=== PATIENT | female | born 1945 | race Caucasian/White ===

== ENCOUNTER 2016-12-11 22:58 | Emergency (ER) | payer MEDICARE ==
[2016-12-11] MEDS ORDERED: MORPHINE SULFATE 4 MG/ML SYRINGE IVP STA ×2 (23:20→23:37)
--- NOTE | 2016-12-11 23:41 | ED ---
Lower Extremity Injury HPI - General Chief Complaint: Extremity Injury, Lower Stated Complaint: R Ankle Injury Source: family, EMS Mode of arrival: EMS Limitations: no limitations - History of Present Illness Initial Comments: 70-year-old female presented for evaluation of right ankle injury. She states that she was walking on the stairs and missed the last step. She states her foot turned inward and she heard a snap and had excruciating pain and she still able to move toes and denies any discoloration to the foot. She can still feel sensation to the foot as well. Unable to ambulate on the leg she states that there is a deformity to the lateral surface. She denies any other injuries and denies loss of consciousness. - Related Data Home Medications Medication Instructions Recorded Confirmed Losartan-Hctz 50-12.5 mg [Hyzaar 1 tab PO DAILY 01/26/14 01/14/16 50-12.5] Pantoprazole Sodium [Protonix] 40 mg PO DAILY 01/26/14 01/14/16 Krill Oil 500 mcg PO DAILY 01/14/16 01/14/16 Multivitamin [Multiple Vitamins] 1 tab PO DAILY 01/14/16 01/14/16 Oxybutynin Chloride [Ditropan XL] 5 mg PO DAILY 01/14/16 01/14/16 Timolol 0.5% Ophth Soln [Timoptic 1 drop BOTH EYES DAILY 01/14/16 01/14/16 0.5% Ophth Soln] Vitamin D3(Unknown Dose) 1 tab PO DAILY 01/14/16 01/14/16 cycloSPORINE 0.05% OPHTH SOLN 1 drop BOTH EYES BID 01/14/16 01/14/16 [Restasis] Previous Rx's Medication Instructions Recorded EPINEPHrine [Epipen 2-Jamal] 0.3 mg IJ ONCE #1 auto.injct 01/14/16 oxyCODONE-APAP 7.5-325MG [Percocet 1 tab PO Q6HR #30 tab 12/12/16 7.5-325 mg] Allergies Allergy/AdvReac Type Severity Reaction Status Date / Time bacitracin Allergy Unknown Verified 01/14/16 12:26 [From Neosporin Plus] bacitracin zinc Allergy Unknown Verified 01/14/16 12:26 [From Neosporin Plus] lidocaine Allergy Unknown Verified 01/14/16 12:26 [From Neosporin Plus] neomycin sulfate Allergy Unknown Verified 01/14/16 12:26 [From Neosporin Plus] polymyxin B Allergy Unknown Verified 01/14/16 12:26 [From Neosporin Plus] polymyxin B sulfate Allergy Unknown Verified 01/14/16 12:26 [From Neosporin Plus] pramoxine Allergy Unknown Verified 01/14/16 12:26 [From Neosporin Plus] pramoxine HCl Allergy Unknown Verified 01/14/16 12:26 [From Neosporin Plus] venom-honey bee Allergy Unknown Verified 01/14/16 12:26 [bee venom (honey bee)] Review of Systems ROS Statement: Those systems with pertinent positive or pertinent negative responses have been documented in the HPI. ROS Other: All systems not noted in ROS Statement are negative. Constitutional: Denies: fever, chills Eyes: Denies: eye pain, eye discharge ENT: Denies: ear pain, throat pain Respiratory: Denies: cough, dyspnea Cardiovascular: Denies: chest pain, palpitations Endocrine: Denies: fatigue, polydipsia Gastrointestinal: Denies: abdominal pain, nausea, vomiting Genitourinary: Denies: urgency, dysuria Musculoskeletal: Reports: other (Right ankle pain with deformity.). Denies: back pain Skin: Denies: rash, lesions Neurological: Denies: headache, weakness Psychiatric: Denies: anxiety, depression Hematological/Lymphatic: Denies: easy bleeding, easy bruising Past Medical History Past Medical History: GERD/Reflux, Hypertension History of Any Multi-Drug Resistant Organisms: None Reported Past Surgical History: No Surgical Hx Reported Past Psychological History: No Psychological Hx Reported Smoking Status: Never smoker Past Alcohol Use History: None Reported Past Drug Use History: None Reported General Exam Limitations: no limitations General appearance: alert, in no apparent distress Head exam: Present: atraumatic, normocephalic, normal inspection Eye exam: Present: normal appearance, PERRL, EOMI. Absent: scleral icterus, conjunctival injection, periorbital swelling ENT exam: Present: normal exam, mucous membranes moist Neck exam: Present: normal inspection. Absent: tenderness, meningismus, lymphadenopathy Respiratory exam: Present: normal lung sounds bilaterally. Absent: respiratory distress, wheezes, rales, rhonchi, stridor Cardiovascular Exam: Present: regular rate, normal rhythm, normal heart sounds. Absent: systolic murmur, diastolic murmur, rubs, gallop, clicks GI/Abdominal exam: Present: soft, normal bowel sounds. Absent: distended, tenderness, guarding, rebound, rigid Rectal exam: Present: deferred Extremities exam: Present: tenderness, normal capillary refill, other ( Deformity to the right ankle with discoloration to the medial surface. Pulses, sensation, and motor function intact.) Back exam: Present: normal inspection Neurological exam: Present: alert, oriented X3, CN II-XII intact Psychiatric exam: Present: normal affect, normal mood Skin exam: Present: warm, dry, intact. Absent: rash Course Vital Signs 12/11/16 12/12/16 12/12/16 23:01 00:53 01:01 Temperature 98.1 F Pulse Rate 61 79 79 Respiratory 16 16 14 Rate Blood Pressure 196/96 171/94 176/93 O2 Sat by Pulse 95 97 97 Oximetry 12/12/16 12/12/16 12/12/16 01:05 01:10 01:15 Temperature Pulse Rate 75 96 74 Respiratory 14 10 L 16 Rate Blood Pressure 183/99 152/91 145/74 O2 Sat by Pulse 88 L 92 L 98 Oximetry 12/12/16 12/12/16 01:20 01:55 Temperature Pulse Rate 75 73 Respiratory 16 18 Rate Blood Pressure 144/78 136/75 O2 Sat by Pulse 93 L 97 Oximetry Procedures - Orthopedic Fracture Reduction Fracture #1 Consent Obtained: verbal consent Time Out Performed: Yes Side: right Fracture Reduction Location: tibia, fibula Analgesia: procedural sedation Technique: direct manipulation Post Reduction X-rays Demonstrate: anatomical reduction Post-Reduction Neuro Exam: intact Post-Reduction Vascular Exam: intact Splint Applied: Yes Patient Tolerated Procedure: well Additional Comments: Discussed with Dr. Lopes who requested a bulky mosquera splint and out patient follow up - Procedural Sedation Indications: fracture/dislocation reduction ASA Class: II Preparation: nurse sane applied, pulse oximeter, capnometry used, supplemental O2 applied, reversal agents at bedside, suction/airway equipment at bedside, IV secured Fentanyl: IV Fentanyl Dose: 16 (160 mcgs) Midazolam: IV Midazolam Dose: 6 Complications: Respiratory Depression-Repositioning Required Interventions: airway repositioned Patient Tolerated Procedure: well Medical Decision Making - Medical Decision Making 70-year-old female presenting for evaluation of injury to right ankle. She states she was walking down stairs and missed the last step causing ankle to invert. Patient states she heard a snap followed by excruciating pain and deformity to the ankle. On physical examination the deformity is noted however there is no skin tenting or breaks in the skin. Pulse sensation and motor function are intact distal to the injury. There are no other injuries noted. There is no fibular head tenderness to palpation as well. We'll obtain x-rays of the ankle and fibula and provide pain control. Procedural sedation with fentanyl and Versed given and right ankle was reduced and placed in posterior mold splint. Postreduction x-rays showed reduction of the trimalleolar fracture. This was discussed with Dr. Lopes who stated that the reduction looked appropriate and requested that she be placed in a bulky Mosquera splint and discharged with pain control and instructions to call his office this week for follow-up. No surgeries indicated at this time and would likely not be scheduled for a couple weeks. Results were discussed with the patient's as well as the discussion with the orthopedic surgeon. He stated that they had crutches at home and that he could drive her home and then get the crutches and help her inside. They were informed that she would be nonweightbearing on the right leg and that she should limit her movements. They were further advised to follow-up with orthopedic surgeon this week. Although postreduction the patient's foot was neurovascularly intact distal to the fracture they were advised that they should loosen the bandages if her foot should start to become numb or weak. They acknowledged an understanding of all this information and agreed with this plan of care. Disposition Clinical Impression: Trimalleolar fracture of ankle, closed Disposition: HOME SELF-CARE Condition: Stable Instructions: Ankle Fracture (ED) Additional Instructions: Please use medication as discussed. Please follow up with family doctor if symptoms have not improved over the next two days. Please return to the emergency room if your symptoms increase or worsen or for any other concerns. Prescriptions: oxyCODONE-APAP 7.5-325MG [Percocet 7.5-325 mg] 1 tab PO Q6HR #30 tab Referrals: Roz Velazquez MD [Primary Care Provider] - 1-2 days Time of Disposition: 02:19
--- NOTE | 2016-12-12 00:05 | XR ---
EXAM: XR Right Ankle Complete, 3 or More Views CLINICAL HISTORY: Reason: Pain TECHNIQUE: Frontal, lateral and oblique views of the right ankle. COMPARISON: No relevant prior studies available. FINDINGS: There is a trimalleolar right ankle fracture. Posterior and lateral talar subluxation relative to the tibial plafond. No clear talar dome fracture. Arthrodesis screws traversing multiple tarsometatarsal and intertarsal joints. Generalized osteopenia. IMPRESSION: Trimalleolar right ankle fracture
[2016-12-12] MEDS ORDERED: MIDAZOLAM (PF) 1 MG/ML 5 ML VIAL IV STA (00:37)
[2016-12-12] MEDS ORDERED: fentaNYL (PF) 50 MCG/ML 2 ML AMP IVP STA (00:37)
[2016-12-12 01:56] VITALS: RESP 18
[2016-12-12 02:31] VITALS: BP 146/84; PULSE 61; TEMP 97.7
--- NOTE | 2016-12-12 02:31 | XR ---
EXAM: XR Right Ankle Complete, 3 or More Views CLINICAL HISTORY: Reason: post reduction TECHNIQUE: Frontal, lateral and oblique views of the right ankle. COMPARISON: 12/11/16 at 2340 FINDINGS/IMPRESSION: Interval closed reduction of trimalleolar fracture of the right ankle. Markedly improved alignment. Stable midfoot arthrodesis.
--- NOTE | 2016-12-16 01:28 | CDI ---
Documentation Clarification OP Dear Tyrese ENGLISH DO, Please add addendum for Moderate conscious sedation stop time. Fentanyl and versed administration time only mentioned. Thank you, cristal dozier. Tabber. If you have any questions please contact Coding Manger [phone]. [facility]
== END 2016-12-12 03:30 | disposition home or self-care (01) ==
LOC: EC 22:58
DX: S82.851A Displaced trimalleolar fracture of right lower leg, initial encounter for closed fracture (principal); K21.9 Gastro-esophageal reflux disease without esophagitis; I10 Essential (primary) hypertension; Z88.1 Allergy status to other antibiotic agents; Z91.030 Bee allergy status; Z79.899 Other long term (current) drug therapy; X50.9XXA Other and unspecified overexertion or strenuous movements or postures, initial encounter; Y93.01 Activity, walking, marching and hiking
CPT/HCPCS: 99284; 99152; 27818; 96374; 73600; 73610; J2270; J2250; J3010

== ENCOUNTER 2016-12-16 17:24 | Inpatient (IN) | payer MEDICARE ==
--- NOTE | 2016-12-16 18:13 | ED ---
General Adult HPI - General Chief complaint: Extremity Injury, Lower Stated complaint: Ankle dislocation Time Seen by Provider: 12/16/16 17:45 Source: patient, RN notes reviewed Mode of arrival: wheelchair Limitations: physical limitation - History of Present Illness Initial comments: Patient is a pleasant 70-year-old female presenting to the emergency department with concern for ankle dislocation. Patient was in the hospital less than a week ago with fracture dislocation of the right ankle. This was reduced in the emergency department. Patient did follow-up with orthopedics and had splint replaced. Patient did have the scan done today showing posterior dislocation. Patient states she did have a fall following her orthopedic visit. Patient questions if it may have been dislocated at that time. No other areas of injury or concern. - Related Data Home Medications Medication Instructions Recorded Confirmed Losartan-Hctz 50-12.5 mg [Hyzaar 1 tab PO DAILY 01/26/14 12/16/16 50-12.5] Pantoprazole Sodium [Protonix] 40 mg PO DAILY 01/26/14 12/16/16 Oxybutynin Chloride [Ditropan XL] 5 mg PO DAILY 01/14/16 12/16/16 Timolol 0.5% Ophth Soln [Timoptic 1 drop BOTH EYES DAILY 01/14/16 12/16/16 0.5% Ophth Soln] cycloSPORINE 0.05% OPHTH SOLN 1 drop BOTH EYES BID 01/14/16 12/16/16 [Restasis] Biotin 5 mg PO DAILY 12/16/16 12/16/16 EPINEPHrine [Epipen 2-Jamal] 0.3 mg IM ONCE PRN 12/16/16 12/16/16 Fish Oil/Vitamin D3 1 tab PO DAILY 12/16/16 12/16/16 traMADol HCL [Ultram] 50 - 100 mg PO Q4-6H PRN 12/16/16 12/16/16 Allergies Allergy/AdvReac Type Severity Reaction Status Date / Time bacitracin Allergy Unknown Verified 12/16/16 17:52 [From Neosporin Plus] bacitracin zinc Allergy Unknown Verified 12/16/16 17:52 [From Neosporin Plus] famotidine [From Pepcid] Allergy Unknown Verified 12/16/16 17:52 lidocaine Allergy Unknown Verified 12/16/16 17:52 [From Neosporin Plus] neomycin sulfate Allergy Unknown Verified 12/16/16 17:52 [From Neosporin Plus] polymyxin B Allergy Unknown Verified 12/16/16 17:52 [From Neosporin Plus] polymyxin B sulfate Allergy Unknown Verified 12/16/16 17:52 [From Neosporin Plus] pramoxine Allergy Unknown Verified 12/16/16 17:52 [From Neosporin Plus] pramoxine HCl Allergy Unknown Verified 12/16/16 17:52 [From Neosporin Plus] venom-honey bee Allergy Unknown Verified 12/16/16 17:52 [bee venom (honey bee)] Review of Systems ROS Statement: Those systems with pertinent positive or pertinent negative responses have been documented in the HPI. ROS Other: All systems not noted in ROS Statement are negative. Constitutional: Denies: fever Eyes: Denies: eye pain ENT: Denies: ear pain Respiratory: Denies: cough Cardiovascular: Denies: chest pain Endocrine: Denies: fatigue Gastrointestinal: Denies: abdominal pain Genitourinary: Denies: dysuria Musculoskeletal: Denies: back pain Skin: Denies: rash Neurological: Denies: headache Past Medical History Past Medical History: GERD/Reflux, Hypertension History of Any Multi-Drug Resistant Organisms: None Reported Past Surgical History: No Surgical Hx Reported Past Psychological History: No Psychological Hx Reported Smoking Status: Never smoker Past Alcohol Use History: None Reported Past Drug Use History: None Reported General Exam Limitations: physical limitation General appearance: alert, in no apparent distress Head exam: Present: atraumatic Eye exam: Present: normal appearance Neck exam: Present: normal inspection. Absent: tenderness Respiratory exam: Present: normal lung sounds bilaterally Cardiovascular Exam: Present: regular rate, normal rhythm GI/Abdominal exam: Present: soft. Absent: tenderness Extremities exam: Present: other (Right leg in splint) Neurological exam: Present: alert Psychiatric exam: Present: normal affect, normal mood Skin exam: Present: normal color Course Vital Signs 12/16/16 12/16/16 12/16/16 17:26 19:02 19:07 Temperature 97.8 F Pulse Rate 75 71 75 Respiratory 20 16 16 Rate Blood Pressure 164/90 188/104 195/100 O2 Sat by Pulse 95 96 92 L Oximetry 12/16/16 12/16/16 12/16/16 19:12 19:17 19:22 Temperature Pulse Rate 72 66 67 Respiratory 16 18 18 Rate Blood Pressure 182/105 188/103 186/101 O2 Sat by Pulse 100 100 94 L Oximetry 12/16/16 12/16/16 12/16/16 19:27 19:39 19:52 Temperature 99.1 F Pulse Rate 68 65 71 Respiratory 18 16 16 Rate Blood Pressure 179/103 175/93 182/103 O2 Sat by Pulse 95 95 95 Oximetry 12/16/16 12/16/16 20:05 20:36 Temperature Pulse Rate 67 65 Respiratory 18 17 Rate Blood Pressure 172/97 170/96 O2 Sat by Pulse 98 96 Oximetry Procedures - Orthopedic Joint Reduction Joint #1 Consent Obtained: verbal consent, emergent situation Time Out Performed: Yes Side: right Joint Reduction Location: ankle Analgesia: procedural sedation Technique Used: traction/counter-traction Post-Reduction Neuro Exam: intact Post-Reduction Vascular Exam: intact Post Reduction X-Ray Obtained: Yes Post Reduction X-Ray Results: not reduced Splint Applied: Yes Patient Tolerated Procedure: well, no complications Additional Comments: Right ankle was easily moved in and out of joint. Patient did have some mild shaking towards in the sedation and the joint was in motion during this time. I did feel like reduction was successful prior to placing an OCL however x-rays show persistent dislocation. - Orthopedic Splinting/Casting Injury #1 Side: right Lower Extremity Injury Location: ankle Lower Extremity Immobilizer: posterior splint, stirrup splint Additional Comments: Examined post-placement, neurovascular intact and good alignment. - Procedural Sedation Procedural Sedation Start Time: 19:02 Procedural Sedation Stop Time: 19:22 Indications: fracture/dislocation reduction Preparation: athletic monitor applied, pulse oximeter, capnometry used IV Etomidate Dose (mgs): 10 Complications: none Patient Tolerated Procedure: well, no complications Medical Decision Making - Medical Decision Making Case was discussed with Dr. Carrizales. He does have concern for an unstable fracture. Patient reevaluated and still has discomfort. Distally the foot is neurovascularly intact. Patient does prefer to stay in the hospital. - Radiology Data Radiology results: image reviewed (X-ray of the right ankle shows persistent dislocation.) Disposition Clinical Impression: Trimalleolar fracture of ankle, closed Disposition: ADMITTED IP TO THIS [facility] Referrals: Roz Velazquez MD [Primary Care Provider] - 1-2 days
[2016-12-16] MEDS ORDERED: ETOMIDATE 2 MG/ML 10 ML VIAL IVP STA (18:46)
--- NOTE | 2016-12-16 19:38 | XR ---
EXAMINATION TYPE: XR ankle complete RT DATE OF EXAM: 12/16/2016 COMPARISON: 12/12/2016 HISTORY: Post reduction TECHNIQUE: 3 views FINDINGS: There is a trimalleolar fracture of the ankle. There is posterior dislocation of the talus. There is significant posterior displacement of the posterior tibial chip fracture and the medial mal leolus. IMPRESSION: There is posterior trimalleolus fracture dislocation of the ankle. The posterior dislocat ion is new compared to the recent exam.
[2016-12-16] MEDS ORDERED: HYDROmorphone 1 MG/ML 1 ML SYRINGE IVP STA (19:54)
[2016-12-16] MEDS ORDERED: NALOXONE 0.4 MG/ML 1 ML VIAL IV PRN (21:01)
[2016-12-16] MEDS ORDERED: ONDANSETRON 4 MG/2 ML VIAL IVP PRN (21:01)
[2016-12-16] MEDS ORDERED: SODIUM CHLORIDE 0.9% 1,000 ML IV SCH (21:15)
[2016-12-16 21:22] LABS: Basophils % (A) 0 %; CH 30.7; CHCM 35.1; Eosinophils # (A) 0.1 k/uL (0-0.7); Eosinophils % (A) 1 %; HCT 34.2 % (34.0-46.0); HDW 2.58; HGB 12.5 gm/dL (11.4-16.0); Luc # (Auto) 0.15; Luc % (Auto) 2; Lymphocytes % (A) 11 %; MCH 31.9 pg (25.0-35.0); MCHC 36.4 g/dL (31.0-37.0); MCV 87.6 fL (80.0-100.0); Mean Platelet Volume 6.4; Monocytes # (A) 0.5 k/uL (0-1.0); Monocytes % (A) 5 %; Neutrophils # (A) 7.8 k/uL (1.3-7.7); Neutrophils % (A) 81 %; RBC 3.91 m/uL (3.80-5.40); RDW 13.2 % (11.5-15.5); WBC 9.5 k/uL (3.8-10.6); WBC (Perox) 10.07
[2016-12-16 21:29] LABS: INR 1.1 (<1.1); Prothrombin Time 10.8 sec (9.0-12.0)
[2016-12-16 21:31] LABS: Anion Gap 9 mmol/L; Blood Urea Nitrogen 19 mg/dL (7-17); Calcium 8.4 mg/dL (8.4-10.2); Carbon Dioxide 25 mmol/L (22-30); Chloride 100 mmol/L (98-107); Glucose 103 mg/dL (74-99); Non-African American GFR(MDRD) >60 (>60 ml/min/1.73 sqM); Sodium 134 mmol/L (137-145)
[2016-12-16 22:02] VITALS: BMI 30.9
[2016-12-16] MEDS ORDERED: Potassium Replacement Protocol 1 EACH MISC MISCELLANE PRN (22:06)
[2016-12-17] MEDS: cycloSPORINE 0.05% OPHTH 0.4 ML DROPERETTE BOTH EYES SCH ×2 (00:14→08:31)
[2016-12-17] MEDS: POTASSIUM CHLORIDE 10 MEQ, LIDOCAINE 2% INJ 10 MG in SODIUM CHLORIDE 0.9% 100 ML IVPB SCH ×6 (00:14→11:56)
[2016-12-17] MEDS: TIMOLOL 0.5% OPHTH DROPS 5 ML BTL BOTH EYES SCH ×2 (00:14→08:36)
[2016-12-17] MEDS: HYDROmorphone 1 MG/ML 1 ML SYRINGE IV PRN ×2 (03:51→09:00)
[2016-12-17 07:17] VITALS: BP 147/87; PULSE 61; RESP 18; TEMP 97.2
[2016-12-17] MEDS ORDERED: PANTOPRAZOLE 40 MG/10 ML VIAL IV SCH (09:00)
[2016-12-17] MEDS ORDERED: OXYBUTYNIN XL 5 MG TAB.ER.24 PO SCH (09:00)
[2016-12-17] MEDS ORDERED: LOSARTAN-HCTZ 50-12.5 MG 1 EACH TAB PO SCH (09:00)
[2016-12-17] MEDS ORDERED: DIAZEPAM 5 MG/ML 2 ML SYRINGE IVP STA (09:01)
[2016-12-17] MEDS ORDERED: LORazepam 2 MG/ML SYRINGE IV STA (09:30)
[2016-12-17] MEDS ORDERED: LIDOCAINE 2% INJ 20 MG/ML (20 ML MDV) SQ STA (09:31)
[2016-12-17] MEDS ORDERED: LIDOCAINE 1% INJ 10MG/ML (20 ML MDV) ONE (09:41)
--- NOTE | 2016-12-17 09:57 | XR ---
EXAMINATION TYPE: XR ankle limited RT DATE OF EXAM: 12/17/2016 COMPARISON: NONE HISTORY: Fracture, reduction TECHNIQUE: 2 view right ankle FINDINGS: There is anterior dislocation of the tibia and relation to the talus. Fracture fragments ar e adjacent to the talus. IMPRESSION: 1. Fracture dislocation at the ankle with anterior dislocation of the tibia. 2. Exam is limited to lateral views.
--- NOTE | 2016-12-17 10:33 | P.HPOR ---
History of Present Illness H&P Date: 12/17/16 Chief Complaint: Fracture dislocation right ankle This is a 70-year-old female who presents emergency department yesterday with a recurrent dislocation of her trimalleolar fracture dislocation. She has had reductions by Dr. Lopes and in the emergency department. Follow-up computed tomography scan of her right ankle on 12/16/2016 revealed displacement and dislocation of the ankle. She was advised to come in the emergency department for re-reduction. The reduction the emergency department was unsuccessful. She is admitted for orthopedic evaluation. Past Medical History Past Medical History: GERD/Reflux, Hypertension History of Any Multi-Drug Resistant Organisms: None Reported Past Surgical History: Orthopedic Surgery Past Anesthesia/Blood Transfusion Reactions: No Reported Reaction Past Psychological History: No Psychological Hx Reported Smoking Status: Never smoker Past Alcohol Use History: None Reported Past Drug Use History: None Reported Medications and Allergies Home Medications Medication Instructions Recorded Confirmed Type Losartan-Hctz 50-12.5 mg [Hyzaar 1 tab PO DAILY 01/26/14 12/16/16 History 50-12.5] Pantoprazole Sodium [Protonix] 40 mg PO DAILY 01/26/14 12/16/16 History Oxybutynin Chloride [Ditropan XL] 5 mg PO DAILY 01/14/16 12/16/16 History Timolol 0.5% Ophth Soln [Timoptic 1 drop BOTH EYES DAILY 01/14/16 12/16/16 History 0.5% Ophth Soln] cycloSPORINE 0.05% OPHTH SOLN 1 drop BOTH EYES BID 01/14/16 12/16/16 History [Restasis] Biotin 5 mg PO DAILY 12/16/16 12/16/16 History EPINEPHrine [Epipen 2-Jamal] 0.3 mg IM ONCE PRN 12/16/16 12/16/16 History Fish Oil/Vitamin D3 1 tab PO DAILY 12/16/16 12/16/16 History traMADol HCL [Ultram] 50 - 100 mg PO Q4-6H PRN 12/16/16 12/16/16 History Allergies Allergy/AdvReac Type Severity Reaction Status Date / Time bacitracin Allergy Mild Rash/Hives Verified 12/16/16 23:05 [From Neosporin ([id number])] neomycin Allergy Mild Rash/Hives Verified 12/16/16 23:05 [From Neosporin ([id number])] polymyxin B Allergy Mild Rash/Hives Verified 12/16/16 23:05 [From Neosporin ([id number])] famotidine [From Pepcid] Allergy Unknown Verified 12/16/16 17:52 venom-honey bee Allergy Unknown Verified 12/16/16 17:52 [bee venom (honey bee)] Physical Examination There is obvious deformity noted to the right ankle. There is ecchymosis. No open wounds noted. She has full toe motion without difficulty or pain. Neurovascular status to the right lower extremity is intact. Results Xrays reveal trimalleolar fracture dislocation right ankle. - Labs Labs: Abnormal Lab Results - Last 24 Hours (Table) 12/16/16 12/16/16 12/17/16 Range/Units 21:07 21:07 02:57 Neutrophils # 7.8 H (1.3-7.7) k/uL Sodium 134 L (137-145) mmol/L Potassium 3.0 L* 3.4 L (3.5-5.1) mmol/L BUN 19 H (7-17) mg/dL Glucose 103 H (74-99) mg/dL H & H 12/16/16 Range/Units 21:07 Hgb 12.5 (11.4-16.0) gm/dL Hct 34.2 (34.0-46.0) % Coagulation 12/16/16 Range/Units 21:07 INR 1.1 (<1.1) Result Diagrams: 12/16/16 21:07 12/17/16 07:48 Assessment and Plan (1) Trimalleolar fracture of ankle, closed Status: Acute Plan: The clinical and x-ray Findings are discussed the patient. The patient is admitted for close reduction in pain management. Please see procedure note by Dr. Carrizales.
--- NOTE | 2016-12-17 10:34 | P.OP ---
Date of Procedure: 12/17/16 Preoperative Diagnosis: Postoperative Diagnosis: Procedure(s) Performed: PREOPERATIVE DIAGNOSES: 1. Right ankle trimalleolar fracture with current dislocated ankle POSTOPERATIVE DIAGNOSES: 1. Right ankle trimalleolar fracture with current dislocated ankle PROCEDURES PERFORMED: 1. Closed reduction of right ankle fracture dislocation 2. Splint application ANESTHESIA: Hematoma block using 1% lidocaine WHITE LEAD GRINDER: Monika Tavarez PA-C (assistance with reduction and splint) COMPLICATIONS: None ESTIMATED BLOOD LOSS: None mL. INDICATIONS: Mrs. Adame is a 70-year-old female who presented to the emergency department yesterday with a dislocation of her trimalleolar ankle fracture. Reduction attempts in the emergency room were unsuccessful and therefore she is in need of reduction this morning. I have explained the risks and potential, locations of reduction of this ankle fracture to her in detail, as being inclusive of, but not limited to: Need for urgent intervention surgically, skin compromise, compartment syndrome, splint issues including ulcers, and redislocation at a later date. She wishes to proceed. PROCEDURE: This procedure was done at bedside. The anterior ankle was cleansed with ChloraPrep. Hematoma block was administered, after aspiration of approximately 7 mL of blood from the ankle joint. 10 mL of lidocaine were then injected into the joint. The joint was then reduced using gentle manipulation. The ankle was very unstable. Well-padded well molded splint was applied using abundant padding around the ankle as well as posterior splint and stirrup. Portable x-ray was taken in both AP and lateral views in the splint which showed acceptable and satisfactory reduction of the joint. She tolerated the procedure well. Implants: Indications for Procedure: Operative Findings: Description of Procedure:
--- NOTE | 2016-12-17 10:35 | P.DS ---
Providers Date of admission: 12/16/16 21:02 Expected date of discharge: 12/17/16 Attending physician: Jean Carrizales Consults: 12/16/16 22:05 Consult Physician Routine Consulting Provider: Grace Alicia Consult Reason/Comments: medical management Do you want consulting provider notified?: Yes, Notify in am Primary care physician: Roz Velazquez - Discharge Diagnosis(es) (1) Trimalleolar fracture of ankle, closed Current Visit: Yes Status: Acute Hospital Course: This is a 70-year-old female admitted with recurrent dislocation of her trimalleolar fracture. The attempt in the emergency department reduction was unsuccessful. The patient is admitted for further orthopedic evaluation. Closed reduction was performed a bedside on 12/17/[address] Carrizales. Please see procedure note. The patient is cleared for discharge on 12/17/2016. She is to continue her home pain medication. She is maintaining the splint and follow-up in our office next week. She is strict nonweightbearing to the right lower extremity with walker. Plan - Discharge Summary New Discharge Prescriptions: No Action Pantoprazole Sodium [Protonix] 40 mg PO DAILY Losartan-Hctz 50-12.5 mg [Hyzaar 50-12.5] 1 tab PO DAILY cycloSPORINE 0.05% OPHTH SOLN [Restasis] 1 drop BOTH EYES BID Oxybutynin Chloride [Ditropan XL] 5 mg PO DAILY Timolol 0.5% Ophth Soln [Timoptic 0.5% Ophth Soln] 1 drop BOTH EYES DAILY traMADol HCL [Ultram] 50 - 100 mg PO Q4-6H PRN PRN Reason: Pain Biotin 5 mg PO DAILY Fish Oil/Vitamin D3 1 tab PO DAILY EPINEPHrine [Epipen 2-Jamal] 0.3 mg IM ONCE PRN PRN Reason: Anaphylaxis Discharge Medication List Losartan-Hctz 50-12.5 mg [Hyzaar 50-12.5] 1 tab PO DAILY 01/26/14 [History] Pantoprazole Sodium [Protonix] 40 mg PO DAILY 01/26/14 [History] Oxybutynin Chloride [Ditropan XL] 5 mg PO DAILY 01/14/16 [History] Timolol 0.5% Ophth Soln [Timoptic 0.5% Ophth Soln] 1 drop BOTH EYES DAILY [History] cycloSPORINE 0.05% OPHTH SOLN [Restasis] 1 drop BOTH EYES BID 01/14/16 [History] Biotin 5 mg PO DAILY 12/16/16 [History] EPINEPHrine [Epipen 2-Jamal] 0.3 mg IM ONCE PRN 12/16/16 [History] Fish Oil/Vitamin D3 1 tab PO DAILY 12/16/16 [History] traMADol HCL [Ultram] 50 - 100 mg PO Q4-6H PRN 12/16/16 [History] Follow up Appointment(s)/Referral(s): Monika Tavarez PAC [PHYSICIAN DIGITAL ASSOCIATE MEDIA DIRECTOR] - 1 Week Roz Velazquez MD [Primary Care Provider] - 1-2 days Activity/Diet/Wound Care/Special Instructions: Nonweightbearing status to the right lower extremity with walker. Discharge Disposition: HOME SELF-CARE
--- NOTE | 2016-12-17 10:42 | XR ---
EXAMINATION TYPE: XR ankle limited RT DATE OF EXAM: 12/17/2016 COMPARISON: Earlier ankle images HISTORY: Dislocation fracture TECHNIQUE: Multiple portable images of the right ankle FINDINGS: Medial and lateral malleolar fractures are evident. Sequential images demonstrate reduction of the tibia in relation to the talus. Some lateral subluxation of the talus in relation to the tibi a may remain present on the frontal projection. Note is made of oblique fracture of the distal metaph yseal fibula as well as fracture of the medial malleolus. Posterior tibial fracture appears to be pre sent. IMPRESSION: 1. Trimalleolar fracture. 2. Mild lateral subluxation of the talus in relation to the tibia on final postreduction image. Previ ous dislocation of the tibia in relation to the talus has been reduced.
--- NOTE | 2016-12-17 16:49 | P.CONS ---
History of Present Illness - Reason for Consult Consult date: 12/17/16 Recommendation regarding antihypertensive medications - History of Present Illness This is a 70-year-old female who presents emergency department yesterday with a recurrent dislocation of her trimalleolar fracture dislocation. Patient is in a cast and patient will follow up with the orthopedic surgery as an outpatient and surgical intervention at that time. And patient denied any fever, chills, nausea, vomiting patient denies any history of carotid disease and patient does have history of hypertension and was started on her activities medications with fairly controlled blood pressure patient is complaining of some lightheadedness which is again secondary to opiate to medications which she was given for pain. Review of Systems REVIEW OF SYSTEMS: CONSTITUTIONAL: No fever, no malaise, no fatigue. HEENT: No recent visual problems or hearing problems. Denied any sore throat. CARDIOVASCULAR: No chest pain, orthopnea, PND, no palpitations, no syncope. PULMONARY: No shortness of breath, no cough, no hemoptysis. GASTROINTESTINAL: No diarrhea, no nausea, no vomiting, no abdominal pain. Normoactive bowel sounds. NEUROLOGICAL: No headaches, no weakness, no numbness. HEMATOLOGICAL: Denies any bleeding or petechiae. GENITOURINARY: Denies any burning micturition, frequency, or urgency. MUSCULOSKELETAL/RHEUMATOLOGICAL: As mentioned in HPI ENDOCRINE: Denies any polyuria or polydipsia. The rest of the 14-point review of systems is negative. Past Medical History Past Medical History: GERD/Reflux, Hypertension History of Any Multi-Drug Resistant Organisms: None Reported Past Surgical History: Orthopedic Surgery Past Anesthesia/Blood Transfusion Reactions: No Reported Reaction Past Psychological History: No Psychological Hx Reported Smoking Status: Never smoker Past Alcohol Use History: None Reported Past Drug Use History: None Reported Medications and Allergies Home Medications Medication Instructions Recorded Confirmed Type Losartan-Hctz 50-12.5 mg [Hyzaar 1 tab PO DAILY 01/26/14 12/16/16 History 50-12.5] Pantoprazole Sodium [Protonix] 40 mg PO DAILY 01/26/14 12/16/16 History Oxybutynin Chloride [Ditropan XL] 5 mg PO DAILY 01/14/16 12/16/16 History Timolol 0.5% Ophth Soln [Timoptic 1 drop BOTH EYES DAILY 01/14/16 12/16/16 History 0.5% Ophth Soln] cycloSPORINE 0.05% OPHTH SOLN 1 drop BOTH EYES BID 01/14/16 12/16/16 History [Restasis] Biotin 5 mg PO DAILY 12/16/16 12/16/16 History EPINEPHrine [Epipen 2-Jamal] 0.3 mg IM ONCE PRN 12/16/16 12/16/16 History Fish Oil/Vitamin D3 1 tab PO DAILY 12/16/16 12/16/16 History traMADol HCL [Ultram] 50 - 100 mg PO Q4-6H PRN 12/16/16 12/16/16 History Allergies Allergy/AdvReac Type Severity Reaction Status Date / Time bacitracin Allergy Mild Rash/Hives Verified 12/16/16 23:05 [From Neosporin ([id number])] neomycin Allergy Mild Rash/Hives Verified 12/16/16 23:05 [From Neosporin ([id number])] polymyxin B Allergy Mild Rash/Hives Verified 12/16/16 23:05 [From Neosporin ([id number])] famotidine [From Pepcid] Allergy Unknown Verified 12/16/16 17:52 venom-honey bee Allergy Unknown Verified 12/16/16 17:52 [bee venom (honey bee)] Physical Exam Vitals: Vital Signs Temp Pulse Pulse Resp BP BP Pulse Ox 12/17/16 07:00 97.2 F L 61 18 147/87 96 12/17/16 02:01 98.5 F 83 17 115/53 92 L 12/17/16 00:00 83 17 12/16/16 21:49 96.9 F L 61 16 137/75 91 L 12/16/16 21:14 97.9 F 57 L 16 164/94 96 12/16/16 20:36 65 17 170/96 96 12/16/16 20:05 67 18 172/97 98 12/16/16 19:52 71 16 182/103 95 12/16/16 19:39 99.1 F 65 16 175/93 95 12/16/16 19:27 68 18 179/103 95 12/16/16 19:22 67 18 186/101 94 L 12/16/16 19:17 66 18 188/103 100 12/16/16 19:12 72 16 182/105 100 12/16/16 19:07 75 16 195/100 92 L 12/16/16 19:02 71 16 188/104 96 12/16/16 17:26 97.8 F 75 20 164/90 95 Intake and Output 12/17/16 12/17/16 12/17/16 06:59 14:59 22:59 Intake Total 775 120 Balance 775 120 Intake: Intake, IV Titration 775 Amount Potassium Chloride 10 meq 400 Lidocaine 2% Inj 10 mg In Sodium Chloride 0.9% 100 ml @ 100 mls/hr IVPB Q1HR DOMONIQUE Rx#:[id number] Sodium Chloride 0.9% 1, 375 000 ml @ 75 mls/hr IV . [id number] DOMONIQUE Rx#:[id number] Oral 120 Other: Weight 81.617 kg Patient Weight 12/18/16 06:59 Weight 81.617 kg PHYSICAL EXAMINATION: GENERAL: The patient is alert and oriented x3, not in any acute distress. Well developed, well nourished. HEENT: Pupils are round and equally reacting to light. EOMI. No scleral icterus. No conjunctival pallor. Normocephalic, atraumatic. No pharyngeal erythema. No thyromegaly. CARDIOVASCULAR: S1 and S2 present. No murmurs, rubs, or gallops. PULMONARY: Chest is clear to auscultation, no wheezing or crackles. ABDOMEN: Soft, nontender, nondistended, normoactive bowel sounds. No palpable organomegaly. MUSCULOSKELETAL: Patient has a cast to the right ankle. EXTREMITIES: No cyanosis, clubbing, or pedal edema. NEUROLOGICAL: Gross neurological examination did not reveal any focal deficits. SKIN: No rashes. Results CBC & Chem 7: 12/16/16 21:07 12/17/16 07:48 Labs: Abnormal Lab Results - Last 24 Hours (Table) 12/16/16 12/16/16 12/17/16 Range/Units 21:07 21:07 02:57 Neutrophils # 7.8 H (1.3-7.7) k/uL Sodium 134 L (137-145) mmol/L Potassium 3.0 L* 3.4 L (3.5-5.1) mmol/L BUN 19 H (7-17) mg/dL Glucose 103 H (74-99) mg/dL Assessment and Plan Plan: #1 trimalleolar fracture of the right ankle: Cast now and further management as per orthopedic surgery and pain management as part of his surgery. Due to prophylaxis as per orthopedic surgery. #2 hypertension: Can't continue her home and her present medications. Patient is hypokalemic potassium was supplemented and patient will be discharged on 20 mEq of potassium as patient is on diuretic for hypertension. #3 hypokalemia: Secondary to diuretic and angiotensin medication #4 gastroesophageal reflux disease #5 dizziness secondary to IV opiate medications for pain. Patient is medically stable to discharged.
== END 2016-12-17 14:02 | disposition home or self-care (01) | DRG 563 ==
LOC: EC 17:24 → 3SUR 21:02
PROVIDERS: ADMIT Orthopaedic Surgery; ATTEND Orthopaedic Surgery
PROC: 0SSFXZZ Reposition Right Ankle Joint, External Approach (ICD-10-PCS; principal; 2016-12-17)
DX: S82.851A Displaced trimalleolar fracture of right lower leg, initial encounter for closed fracture (principal); I10 Essential (primary) hypertension; T40.2X5A Adverse effect of other opioids, initial encounter; R42 Dizziness and giddiness; E87.6 Hypokalemia; S93.06XA Dislocation of unspecified ankle joint, initial encounter; K21.9 Gastro-esophageal reflux disease without esophagitis; X58.XXXA Exposure to other specified factors, initial encounter; Y92.239 Unspecified place in hospital as the place of occurrence of the external cause
CPT/HCPCS: 27818; 80048; 84132; 85025; 85610; 96374; 99152; 99285

== ENCOUNTER → 2016-12-16 | Outpatient (CLI) | payer MEDICARE ==
--- NOTE | 2016-12-16 14:52 | CT ---
CT right ankle without contrast HISTORY: Pain, fracture or dislocation, M25.571, S93.04XA Helical acquisition through the right ankle. Coronal and sagittal reconstructions. Correlation to plain film 12/12/2016 Trimalleolar comminuted fracture dislocation changes are noted, posterior dislocation of the talus in regards to the distal tibia noted and likely has recurred in the interval. Displaced fracture fragme nts are present posteriorly, medially, and laterally. Postop changes are again noted at the metatarsa l tarsal joints. 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 There is extensive soft tissue swelling present. IMPRESSION: Recurrent dislocation, trimalleolar comminuted displaced fractures. Report relayed to Mona goyal at [facility] telephonically at the time performance of the exam, 12/16/2016 1450 hours.
== END | disposition home or self-care (01) ==
LOC: RADCTMAIN 11:28
PROVIDERS: ATTEND Orthopaedic Surgery
DX: S82.851A Displaced trimalleolar fracture of right lower leg, initial encounter for closed fracture (principal); S93.04XA Dislocation of right ankle joint, initial encounter

== ENCOUNTER 2016-12-30 08:09 | Inpatient (IN) | payer MEDICARE ==
[2016-12-26 15:46] VITALS: BMI 30.9
[~2016-12-30 08:09] MED LIST: HYDROmorphone 1 MG/ML 1 ML SYRINGE IVP PRN; MIDAZOLAM 2 MG/2 ML VIAL IV PRN; ONDANSETRON 4 MG/2 ML VIAL IVP ONE; ceFAZolin 2 GM in SODIUM CHLORIDE 0.9% 100 ML IVPB ONE
[2016-12-30] MEDS ORDERED: LIDOCAINE 1% 20 ML VIAL (10MG/ML) FOR IV START INTRADERMA ONE (13:56)
[2016-12-30] MEDS: LACTATED RINGERS 1,000 ML IV SCH ×2 (13:57→19:49)
[2016-12-30] MEDS ORDERED: HYDROmorphone (PF) 1 MG/ML ONE (15:03)
[2016-12-30] MEDS ORDERED: NEOSTIGMINE 1 MG/ML 10 ML VIAL ONE (15:03)
[2016-12-30] MEDS ORDERED: ONDANSETRON 4 MG/2 ML VIAL ONE (15:03)
[2016-12-30] MEDS ORDERED: ePHEDrine 50 MG/ML 1 ML AMP ONE (15:03)
[2016-12-30] MEDS ORDERED: LIDOCAINE 1% INJ 10MG/ML (20 ML MDV) ONE (15:03)
[2016-12-30] MEDS ORDERED: ROCURONIUM BROMIDE 10 MG/ML 10 ML VIAL IV ONE (15:03)
[2016-12-30] MEDS ORDERED: GLYCOPYRROLATE 0.2 MG/ML 2 ML VIAL ONE (15:03)
[2016-12-30] MEDS ORDERED: PROPOFOL 10 MG/ML 20 ML VIAL IV ONE (15:03)
[2016-12-30] MEDS ORDERED: SUCCINYLCHOLINE CHLORIDE 100 MG/5 ML SYR IV ONE (15:03)
[2016-12-30] MEDS ORDERED: PHENYLEPHRINE-0.9% NACL SYG 1 MG/10 ML SYRINGE ONE (15:03)
[2016-12-30] MEDS ORDERED: fentaNYL (PF) 50 MCG/ML 2 ML AMP ONE (15:03)
[2016-12-30] MEDS ORDERED: MIDAZOLAM 2 MG/2 ML VIAL ONE (15:03)
[2016-12-30] MEDS ORDERED: LACTATED RINGERS 1,000 ML IV ONE ×2 (15:58→17:52)
[2016-12-30] MEDS ORDERED: hydrOXYzine PAMOATE 25 MG CAP PO PRN (17:02)
[2016-12-30] MEDS ORDERED: diphenhydrAMINE 25 MG CAP PO PRN (17:02)
[2016-12-30] MEDS ORDERED: PROCHLORPERAZINE SUPPOSITORY 25 MG SUPP RECTAL PRN (17:02)
[2016-12-30] MEDS ORDERED: TEMAZEPAM 15 MG CAP PO PRN (17:02)
[2016-12-30] MEDS ORDERED: ONDANSETRON 4 MG/2 ML VIAL IVP PRN (17:02)
[2016-12-30] MEDS ORDERED: SENNOSIDES-DOCUSATE SODIUM 1 EACH TAB PO PRN (17:02)
[2016-12-30] MEDS ORDERED: METOCLOPRAMIDE 5 MG/ML 2 ML VIAL IVP PRN (17:02)
[2016-12-30] MEDS ORDERED: HYDROmorphone 1 MG/ML 1 ML SYRINGE IVP PRN (17:02)
[2016-12-30] MEDS ORDERED: BUPIVACAIN-EPI 0.25%-1:200,000 30 ML VIAL INTRAARTIC ONE (18:40)
[2016-12-30] MEDS ORDERED: LIDOCAINE 1% INJ 10MG/ML (20 ML MDV) IM ONE (18:40)
--- NOTE | 2016-12-30 18:59 | P.OP ---
Date of Procedure: 12/30/16 Preoperative Diagnosis: 1. Closed right trimalleolar ankle fracture dislocation 2. Osteoporosis Postoperative Diagnosis: 1. Closed right trimalleolar ankle fracture dislocation 2. Osteoporosis Procedure(s) Performed: 1. Open reduction and internal fixation of right trimalleolar ankle fracture ( open reduction internal fixation of medial, lateral, and posterior malleolus) 2. Manual application of stress by physician for joint radiography Implants: Anesthesia: GETA Surgeon: Mark Lopes Block Operator #1: Darnell Lassiter Estimated Blood Loss (ml): 150 IV fluids (ml): 2,000 Urine output (ml): 350 Pathology: none sent Condition: stable Disposition: PACU Indications for Procedure: The patient is a very pleasant 71-year-old female who sustained a fall on December 12 resulting in a closed right ankle fracture dislocation. She was seen in the emergency department where a closed reduction and splint application was performed. She followed up with me in the office later that day. She was placed in a well-padded splint in the office due to the minimal padding on the emergency department splint. I had a lengthy discussion with the patient and her at that time regarding treatment. My recommendation was to undergo operative fixation due to the instability noted on her ankle fracture. She was sent for a preoperative CT. We discussed the potential risks and complication of surgery including but not limited to risks of anesthesia, risk of superficial infection, risk of deep infection, risk of superficial wound necrosis, risk of deep wound necrosis, risk of delayed wound healing, risk of fracture nonunion, risk of fracture malunion, risk of re-displacement following surgery, risk of intraoperative fracture, risk of postoperative fracture, risk of symptomatically hardware, risk of damage to local blood vessels or nerves, risk of temporary numbness, risk of permanent numbness, risk of complex regional pain syndrome, risk of posttraumatic arthritis, risk of difficulty re- gaining preinjury level of function, risk of inability to ambulate without pain , risk of need for hardware removal, risk of postoperative medical complication including DVT, fatal PE, acute coronary event, stroke, urinary tract infection, pneumonia and possibly . The patient and her understand that these were the most common complications but other less common complications are possible. They voiced their understanding in the office and provided their verbal consent to go forward with surgery. After the patient left the office she went for a computed tomography scan. The computed tomography scan was obtained several days later and showed that the ankle joint was completely dislocated posteriorly. For the week and she was managed by my partner. She was admitted to the orthopedics floor and a closed reduction and splint application was placed. She was seen in the office in my absence after discharge to verify reduction and the ankle was subluxed posteriorly with significant displacement of the posterior malleolus and lateral malleolus fracture. No attempt was made at closed reduction or placement of an external fixator. Operative Findings: Description of Procedure: The patient was identified in preoperative holding and the correct right leg was marked with my initials. I reviewed the proposed procedure and consent form with the patient, her , and [id number]. All of their questions were answered. The patient was then brought back to the operating room. She was transferred onto the operating room table and a general anesthetic and preoperative antibiotics were administered. A tourniquet was applied to the proximal aspect of the right thigh. The patient then had fluoroscopy shots taken of the right and left ankle. I started by taking comparison x-rays of the left ankle including a mortise and lateral shots. I then took fluoroscopy shots of the affected right ankle. The ankle was subluxed and almost completely dislocated. The splint was taken down and the ankle was able to be reduced with great difficulty. The posterior and medial malleolus fragments were completely displaced. I was able to close reduce the ankle. On inspection of the soft tissue there were wrinkles present both medially and laterally and resolving ecchymosis but no fracture blisters. The patient was then flipped into the lateral decubitus position with the left side down and the right leg up. She was secured to the table with a beanbag. The down left leg was padded and secured to the operating room table with tape. A bone foam ramp was placed under her right leg which was scissored posteriorly. C-arm fluoroscopy was brought in to verify that lateral and AP x-rays could be obtained. The patient's right leg was then prepped and draped in the standard sterile fashion. Prior to starting surgery timeout was performed identifying the correct patient, operative extremity, and procedure. The patient's leg was then elevated, exsanguinated with an Esmarch bandage, and the tourniquet was inflated to 250 mmHg. I began by outlining an incision over the posterolateral aspect of the ankle for a posterolateral approach to both the posterior and lateral malleolus. A skin marker was used to create a longitudinal marking centered between the posterior border of the fibula and the anterior aspect of the Achilles tendon. Skin incision was made with a 15 blade scalpel and dissection was carried down through the subcutaneous tissue to the fascia overlying the peroneal musculature. The sural nerve was identified distally in the wound and carefully retracted. The fascia over the peroneal muscle was incised carefully longitudinally in line with the skin incision. I then bluntly developed the interval between the peroneals and the FHL. I also developed the interval anterior to the peroneals to gain access to the fibula. I began by exposing and debriding the fibula fracture. There was a large amount of consolidating scar tissue and early callus that needed to be debrided to allow the fibula to be reduced. Once the fibula was adequately debrided attention was then turned to the posterior malleolus. I developed the interval between the peroneals and FHL. The posterior border of the tibia was identified proximally dissection was carried distally. Again there was a large amount of consolidating callus that needed to be debrided. The posterior malleolus fragment was completely displaced. The posterior malleolus fragment was debrided superiorly and medially but I left the syndesmotic ligaments intact at their insertion to the fibula. With my surveyor instrument assistant pulling longitudinal traction and dorsiflexing the ankle I was able to reduce the talus under the plafond. Using a ball spiked pusher I was able to push the posterior malleolus fragment distally and brewer in the superior spike to the proximal tibia. Once the posterior malleolus fragment appeared to be reduced clinically fluoroscopy was brought in to take a lateral image of the ankle. The talus appeared to be reduced under the plafond and and the plafond and appeared to be anatomic. A 0.0625 K wire was then placed to hold the reduction of the posterior malleolus fragment. I then placed a precontoured posterior malleolus plate over the distal tibia and posterior malleolus. The position of the plate was verified and the mortise and lateral planes with fluoroscopy. Once I was happy with the position of the plate a 3.5 mm screw was placed just proximal to the fracture bringing the plate down to the bone. I then placed a second screw in the most proximal hole of the plate after verifying that it was centered on the tibia. I then proceeded to place two 3.5 millimeter lag screws through the posterior malleolus fragment. A 3.5 mm drill bit was used to create a gliding hole in the posterior malleolus fragment and a 2.7 mm drill bit was used to create a threaded hole in the anterior tibia. Fully threaded 3.5 mm cortical screws were placed and each screw generated excellent compression and had a great bite. Fluoroscopy was brought in and the posterior malleolus appeared to be anatomically reduced. The talus was centered under the tibial plafond and would no longer sublux posteriorly. Attention was then turned to the fibula fracture. A vlflk-yb-xpidi reduction clamp was used to grasp the distal fibula and longitudinal traction was pulled. I attempted to brewer the posterior spike of the distal fragment into the proximal fibula. Once the reduction appeared to be close to anatomic and other [id number] reduction clamp was used to grasp and hold the reduction. I then placed a one third tubular plate in the posterior anti-glide position over the distal fibula. A 3.5 mm screw was placed in a screw hole just proximal to the fracture. I then placed a second 3.5 mm screw in the most proximal hole of the plate. I then placed a 3.5 mm screw in the most distal hole of the plate. I then placed a 3.5 mm lag screw across the fracture through the plate. A 3.5 mm Job it was used to create a gliding hole and a 2.7 mm drill bit was used to create a threaded hole. A fully threaded 3.5 lag screw was placed across the fracture. I then placed a final 3.5 mm screw in the third hole of the plate. Fluoroscopy was once again brought in to verify position of the hardware and reduction. In the mortise plane the fibula appeared to be out to length. The talus was well reduced under the tibial plafond. On the lateral view the talus remained centered under the plafond. At this point the air was let out of the beanbag and the patient was carefully positioned in the supine position. Attention was then turned to the medial malleolus. A longitudinal incision was centered over the medial malleolus. Skin incision was made a 15 by scalpel. Dissection was carried down carefully to the subcutaneous tissue with tenotomy scissors. Branch of the saphenous vein were controlled with electrocautery. The periosteum over the medial malleolus was then elevated revealing a complex fracture the medial malleolus. There was a large anterior collicular fragment and a vertical component postero-medially. The fracture site was carefully debrided and a dental pick was used to book open the medial malleolus fragment to gain access to the joint. Several loose osteochondral fragments were debrided from the joint and then the joint was copiously irrigated. A 2.5 mm drill bit was used to create a unicortical poke hole in the distal tibial metaphysis. I manually reduce the medial malleolus fragment and then placed one reid of a [id number]-bvpkk reduction clamp and the previously made drill hole and a second reid on the tip of the medial malleolus. I gently teased the medial malleolus fragment into an anatomic reduction verified its position with fluoroscopy. Due to the size of the fragment I was only able to place a single screw. A 2.7 mm drill bit was used to create a hole for a fully threaded 3.5 mm screw that I placed bicortically. There was still a vertical posterior medial component after placement of the 3.5 mm screw. I contoured a 2.4 mm plate over the posterior medial tibia. I placed 2.4 millimeter screws just proximal to the fracture and in the most proximal hole of the plate. I then placed a screw through the distal medial malleolus fragment in the most distal hole of the plate. At this point final fluoroscopy shots were taken. A mortise x-ray was taken. The fibula appeared to be out to length. The talus appeared to be anatomically reduced within the ankle mortise. A manual external rotation stress x-ray was performed. There was no opening of the medial clear space or of the incisor. I then took a lateral x-ray of the ankle. The talus appeared to be reduced under the tibial plafond. When I applied a posteriorly directed force on the foot the talus would not sublux and remained reduced. The lateral wound was then copiously irrigated with sterile saline. The fascia over the peroneal muscle and FHL was closed with interrupted 2-0 Vicryl sutures. The deep subcutaneous tissue was reapproximated using 2-0 Vicryl. The skin was closed with 3-0 nylon Algor modification of the Donati stitch. Attention was then turned medially. The wound was copiously irrigated and bleeders were controlled with electrocautery. The deep subcutaneous layer was closed with interrupted 2-0 Vicryl. The skin was closed using 3-0 nylon horizontal mattress stitches. After both wounds were closer verified that all sponge, instrument, and sharp counts were correct. The skin was then cleansed with a moist sponge and dry towel. Brown quarter inch stretchy Steri-Strips were placed between all of the sutures. All of the skin appeared to be viable and pink. A sterile dressing consisting of Betadine soaked Adaptic, 4 x 4, and ABDs was applied and overwrapped with a web roll. The drapes were taken down and a very well-padded bulky Krueger type splint was applied. The patient was then transferred into a supine position and onto a gurney. She was extubated and brought to PACU having reid of the procedure well. Darnell Lassiter PA-C was required is a skilled surveyor instrument assistant for patient positioning, surgical exposure, retraction, fracture reduction, placement of hardware, wound closure, and application of splint. Plan: The patient is going to be admitted for pain control and IV antibiotics. She is to be strictly nonweightbearing on her right leg. She'll she 2 doses of postoperative antibiotics. She will receive DVT prophylaxis with Lovenox while in-house. Her risk stratification for a DVT is low so she'll be discharged home with aspirin 325 mg twice a day and early motion. She can discharge home when her pain is adequately controlled and she clears physical therapy. We will check a 25-hydroxy vitamin D level for bone health and she will be started on calcium and vitamin D supplementation. Internal medicine will be consulted for perioperative medical management.
--- NOTE | 2016-12-30 19:03 | P.ONQ ---
Anesthesiology Proc Note - PNB - Peripheral Nerve Block Performed Right Popliteal Single Time Out Performed: Yes Procedure Start Time: 18:40 Procedure Stop Time: 18:45 Indication: Acute Post-Operative Pain, Requested by physician Specifically requested for management of pain by DrSandeep: Mark Lopes Sedation Type: Awake Preparation: Sterile Prep Position: Prone Needle Types: Facet Needle Size: 100mm (4") Needle Gauge: 21 Technique: Ultrasound (bupivacain 0.25% 15 ml and lidocaine 1 % 5 ml )
--- NOTE | 2016-12-30 19:05 | P.ONQ ---
Anesthesiology Proc Note - PNB - Peripheral Nerve Block Performed Right Adductor Canal Single Time Out Performed: Yes Indication: Acute Post-Operative Pain, Requested by physician Specifically requested for management of pain by DrSandeep: Mark Lopes Sedation Type: Awake Preparation: Sterile Prep Position: Supine Needle Types: Facet Needle Size: 100mm (4") Needle Gauge: 21 Technique: Ultrasound (bupivacaine 0.25% 15 ml with epi 1/200 k plus lidocaine 1 % 5 ml )
[2016-12-30 20:25] LABS: Basophils % (A) 0 %; CH 30.1; CHCM 33.1; Eosinophils % (A) 0 %; HCT 36.5 % (34.0-46.0); HDW 2.44; HGB 12.2 gm/dL (11.4-16.0); Luc # (Auto) 0.07; Luc % (Auto) 1; Lymphocytes # (A) 0.6 k/uL (1.0-4.8); Lymphocytes % (A) 5 %; MCH 30.6 pg (25.0-35.0); MCHC 33.5 g/dL (31.0-37.0); MCV 91.2 fL (80.0-100.0); Mean Platelet Volume 6.5; Monocytes # (A) 0.4 k/uL (0-1.0); Monocytes % (A) 4 %; Neutrophils # (A) 9.4 k/uL (1.3-7.7); Neutrophils % (A) 90 %; RBC 4.01 m/uL (3.80-5.40); RDW 12.9 % (11.5-15.5); WBC 10.5 k/uL (3.8-10.6); WBC (Perox) 11.09
[2016-12-30] MEDS: cycloSPORINE 0.05% OPHTH 0.4 ML DROPERETTE BOTH EYES SCH (20:34)
[2016-12-30] MEDS: ceFAZolin 2 GM in SODIUM CHLORIDE 0.9% 100 ML IVPB SCH (23:01)
[2016-12-30] MEDS: HYDROmorphone 1 MG/ML 1 ML SYRINGE IVP PRN (23:59)
[2016-12-31] MEDS: LACTATED RINGERS 1,000 ML IV SCH ×3 (01:45→20:25)
[2016-12-31] MEDS: HYDROmorphone 1 MG/ML 1 ML SYRINGE IVP PRN ×3 (02:55→07:37)
[2016-12-31] MEDS: HYDROcodone/APAP 7.5-325MG 1 EACH TAB PO PRN ×4 (05:24→21:46)
[2016-12-31 05:51] LABS: Appearance,Urine Clear (Clear); Bilirubin,Urine Negative (Negative); Glucose,Urine (UA) Negative (Negative); Ketones,Urine Negative (Negative); Leukocyte Esterase,Urine Negative (Negative); Nitrite,Urine Negative (Negative); Protein,Urine Negative (Negative); Specific Gravity,Urine 1.014 (1.001-1.035); UA Billing (MACRO vs. MICRO) CHEM; Urobilinogen,Urine <2.0 mg/dL (<2.0)
[2016-12-31] MEDS: ceFAZolin 2 GM in SODIUM CHLORIDE 0.9% 100 ML IVPB SCH (07:21)
--- NOTE | 2016-12-31 07:27 | FL ---
EXAMINATION TYPE: FL guidance operating room, XR ankle limited RT, XR ankle limited LT DATE OF EXAM: 12/30/2016 CLINICAL HISTORY: Right-sided ankle fracture TECHNIQUE: Fluoroscopy. Intraoperative limited views right ankle and left ankle for comparison COMPARISON: Right ankle x-rays December 17, 2016 and December 16, 2016 and older studies. FINDINGS: Fluoroscopic guidance was provided during open reduction internal fixation procedure perfo rmed by Dr. Lopes. A total of 4.08 minutes of fluoroscopic time was utilized during the procedure and 6 spot intraoperative images right ankle were acquired. Comparison two intraoperative images lef t ankle are acquired. Images of right ankle show placement of posterior plate and oblique fracture distal fibular diaphysis . There is placement of fixating screws as well as medial plate and posterior plate fractures of the medial and posterior malleoli. Improved alignment is seen after reduction and fixation. Comparison views left ankle are felt within normal limits. Ankle mortise symmetry is preserved withou t fracture. IMPRESSION: As Above.
--- NOTE | 2016-12-31 08:42 | P.PN ---
Subjective Patient is doing well patient did well overnight except for pain in the ankle. This morning her main complaint is ankle pain. She denies chest pain or shortness of breath. She denies nausea or vomiting. Objective - Vital Signs Vital signs: Vital Signs Temp 98.2 F 12/31/16 07:00 Pulse 98 12/31/16 07:00 Resp 14 12/31/16 07:00 BP 122/82 12/31/16 07:00 Pulse Ox 97 12/31/16 07:00 Intake & Output 12/30/16 12/31/16 12/31/16 18:59 06:59 18:59 Intake Total 2350 Output Total 450 750 Balance 1900 -750 Weight 81.6 kg Intake: IV 2350 Output: Urine 300 750 Straight 600 Estimated Blood Loss 150 Other: Voiding Method Bedside Commode # Voids 1 - Exam The patient is in mild distress secondary to pain but is alert and oriented. A focused exam of the right lower extremity was conducted. On inspection she has a bulky Krueger splint in place. There is a small amount of saturated blood over the lateral aspect of the splint, but the splint is otherwise clean and intact. The tips of her toes are warm and well perfused with brisk capillary refill. Sensation is intact to light touch in the tips of her toes. She can actively plantarflex and dorsiflex her toes. She has minimal discomfort with passive range of motion of the toes. - Labs CBC & Chem 7: 12/30/16 20:03 Labs: Abnormal Lab Results - Last 24 Hours (Table) 12/30/16 Range/Units 20:03 Neutrophils # 9.4 H (1.3-7.7) k/uL Lymphocytes # 0.6 L (1.0-4.8) k/uL Assessment and Plan (1) Trimalleolar fracture of ankle, closed Status: Acute Plan: Post-operative day #1 is post open reduction internal fixation of right bimalleolar ankle fracture dislocation 1. Nonweightbearing right lower extremity 2. Splint clean and dry, reinforce as necessary if bleeding saturates through bandage 3. 2 Doses postoperative antibiotics 4. DVT prophylaxis with Lovenox 40 mg daily while in-house and 325 mg aspirin twice a day after discharge 5. PT for mobilization 6. Internal medicine for perioperative medical management 7. Patient is okay to discharge home when her pain is controlled with oral pain medication and she is cleared by physical therapy
[2016-12-31] MEDS: ENOXAPARIN 40 MG/0.4 ML SYRINGE SQ SCH (08:50)
[2016-12-31] MEDS: cycloSPORINE 0.05% OPHTH 0.4 ML DROPERETTE BOTH EYES SCH ×2 (14:39→20:36)
[2016-12-31] MEDS ORDERED: DIAZEPAM 2 MG TAB PO PRN (15:15)
[2016-12-31] MEDS ORDERED: DOCUSATE 100 MG CAP PO PRN (15:15)
[2016-12-31] MEDS: LOSARTAN-HCTZ 50-12.5 MG 1 EACH TAB PO SCH (17:32)
[2016-12-31] MEDS ORDERED: cycloSPORINE 0.05% OPHTH 0.4 ML DROPERETTE BOTH EYES SCH (21:00)
[2017-01-01] MEDS: HYDROcodone/APAP 7.5-325MG 1 EACH TAB PO PRN ×3 (05:21→14:20)
[2017-01-01] MEDS ORDERED: PANTOPRAZOLE 40 MG TABLET PO SCH (07:30)
[2017-01-01 07:34] VITALS: BP 109/72; PULSE 77; RESP 16; TEMP 98
[2017-01-01] MEDS: LOSARTAN-HCTZ 50-12.5 MG 1 EACH TAB PO SCH (07:41)
[2017-01-01] MEDS: ENOXAPARIN 40 MG/0.4 ML SYRINGE SQ SCH (07:52)
[2017-01-01] MEDS: cycloSPORINE 0.05% OPHTH 0.4 ML DROPERETTE BOTH EYES SCH (07:52)
--- NOTE | 2017-01-01 08:19 | P.DS ---
Providers Date of admission: 12/30/16 13:17 Attending physician: Mark Lopes Consults: 12/30/16 17:02 Consult Physician Routine Consulting Provider: Aniyah Grajeda Consult Reason/Comments: post op medical management Do you want consulting provider notified?: Yes Primary care physician: Roz Caroline [place] [facility] Course: This is a 71-year-old female with history of a closed right trimalleolar fracture dislocation on December 12. The patient presents for evaluation and was seen in the emergency department. After discussion and consideration patient consents to proceed with open reduction and internal fixation of right trimalleolar ankle fracture. The patient is seen preoperatively by Dr. Lopes and cleared for surgery. Patient is admitted to [facility] on 12/30/2016 for open reduction and internal fixation of right trimalleolar ankle fracture. The procedures performed without complication or sequelae. The patient is doing well postoperatively. Labs and vital signs are stable on day of discharge. On day of discharge patient's splint is dry and intact. Patient states her pain is under control with oral pain medications. Patient has mobility of the toes without pain. Sensation intact. Neurovascular status to the right lower extremity is intact. Calves are soft and nontender. Patient is discharged home in good condition. Please see med rec for accurate list of home medications. Plan - Discharge Summary New Discharge Prescriptions: New HYDROcodone/APAP 10-325MG [Allons 10-325] 1 tab PO Q6H PRN #60 tab PRN Reason: pain Docusate [Colace] 100 mg PO BID #28 capsule Aspirin 325 mg PO BID #28 Diazepam [Valium] 2 mg PO TID #25 tab No Action Pantoprazole Sodium [Protonix] 40 mg PO DAILY Losartan-Hctz 50-12.5 mg [Hyzaar 50-12.5] 1 tab PO DAILY cycloSPORINE 0.05% OPHTH SOLN [Restasis] 1 drop BOTH EYES BID Oxybutynin Chloride [Ditropan XL] 5 mg PO DAILY Timolol 0.5% Ophth Soln [Timoptic 0.5% Ophth Soln] 1 drop BOTH EYES DAILY Biotin 5 mg PO DAILY Potassium Chloride [Klor-Con 20] 20 meq PO DAILY #30 tab traMADol HCl [Ultram] 100 mg PO Q4-6H PRN PRN Reason: Pain Diazepam [Valium] 2 mg PO HS PRN PRN Reason: Insomnia Stool Softner 1 dose PO DAILY PRN PRN Reason: Constipation Discharge Medication List Losartan-Hctz 50-12.5 mg [Hyzaar 50-12.5] 1 tab PO DAILY 01/26/14 [History] Pantoprazole Sodium [Protonix] 40 mg PO DAILY 01/26/14 [History] Oxybutynin Chloride [Ditropan XL] 5 mg PO DAILY 01/14/16 [History] Timolol 0.5% Ophth Soln [Timoptic 0.5% Ophth Soln] 1 drop BOTH EYES DAILY [History] cycloSPORINE 0.05% OPHTH SOLN [Restasis] 1 drop BOTH EYES BID 01/14/16 [History] Biotin 5 mg PO DAILY 12/16/16 [History] Potassium Chloride [Klor-Con 20] 20 meq PO DAILY #30 tab 12/17/16 [Rx] Diazepam [Valium] 2 mg PO HS PRN 12/26/16 [History] Stool Softner 1 dose PO DAILY PRN 12/26/16 [History] traMADol HCl [Ultram] 100 mg PO Q4-6H PRN 12/26/16 [History] Aspirin 325 mg PO BID #28 12/31/16 [Rx] Diazepam [Valium] 2 mg PO TID #25 tab 12/31/16 [Rx] Docusate [Colace] 100 mg PO BID #28 capsule 12/31/16 [Rx] HYDROcodone/APAP 10-325MG [Allons 10-325] 1 tab PO Q6H PRN #60 tab 12/31/16 [Rx] Follow up Appointment(s)/Referral(s): Mark Lopes MD [Medical Doctor] - 1 Week Activity/Diet/Wound Care/Special Instructions: 1. Strict non-weight bearing on your operative leg. 2. Keep splint clean and dry. 3. Do not remove your splint. 4. Use crutches, wheelchair, knee scooter or a walker to ambulate. 5. Gently elevate your leg as much as possible. 6. Take pain medications as prescribed. 7. Follow-up in the office 2 weeks after your surgery. Discharge Disposition: HOME SELF-CARE
[2017-01-01] MEDS ORDERED: POTASSIUM CHLORIDE ER 20 MEQ TAB.ER PO SCH (09:00)
[2017-01-01] MEDS ORDERED: NON-FORMULARY DRUG (Biotin [Biotin] 5 MG) PO SCH (09:00)
[2017-01-01] MEDS ORDERED: TIMOLOL 0.5% OPHTH DROPS 5 ML BTL BOTH EYES SCH (09:00)
[2017-01-01] MEDS ORDERED: OXYBUTYNIN XL 5 MG TAB.ER.24 PO SCH (09:00)
[2017-01-01] MEDS: LACTATED RINGERS 1,000 ML IV SCH (10:07)
--- NOTE | 2017-01-01 16:30 | P.CON ---
Consult Note - . Consult date: 01/01/17 Assessment/Plan:: Mrs. Adame is a 71-year-old female the past medical history of GERD and hypertension admitted to the hospital for an elective open reduction and internal fixation of the right trimalleolar ankle fracture. Medicine service has been consulted for perioperative management. Patient underwent the procedure on 12/30/2016 and has been doing okay. A consult for Dr. Velazquez ( who is her PCP ) was placed, so the consult did not show up on the list until last evening. Patient's home medications have been reconciled yesterday. Postop patient did not have any complications. Her blood pressure has been within normal limits. She does not have any active complaints today. Past medical history- hypertension GERD ALLERGIES- honeybee venom, neomycin, polymyxin B, famotidine Home medications - Protonix 40 mg by mouth daily, Hyzaar 50/12 0.5 one tablet by mouth daily, oxybutynin 5 mg by mouth daily, timolol eyedrops, biotin 5 mg by mouth daily, but patient tolerated 20 mg by mouth daily, tramadol 100 mg by mouth every 6 hours when necessary for pain, Valium 2 mg by mouth daily at bedtime. Family history - family history of lung cancer Social history - quit smoking in 2007 smoked for almost 41 years, occasional alcohol, no drugs - Vital Signs Vital signs: Vital Signs Temp 98.2 F 12/31/16 07:00 Pulse 98 12/31/16 07:00 Resp 14 12/31/16 07:00 BP 122/82 12/31/16 07:00 Pulse Ox 97 12/31/16 07:00 Intake & Output 12/30/16 12/31/16 12/31/16 18:59 06:59 18:59 Intake Total 2350 Output Total 450 750 Balance 1900 -750 Weight 81.6 kg Intake: IV 2350 Output: Urine 300 750 Straight 600 Estimated Blood Loss 150 Other: Voiding Method Bedside Commode # Voids 1 GENERAL EXAM GEN. APPEARANCE: alert, in no apparent distress HEAD EXAM: atraumatic, normocephalic, normal inspection EYE EXAM: normal appearance, PERRL, EOMI. Absent: scleral icterus, conjunctival injection, periorbital swelling ENT EXAM: normal exam, mucous membranes moist NECK EXAM: normal inspection. Absent: tenderness, meningismus, full ROM, lymphadenopathy RESPIRATORY EXAM: normal lung sounds bilaterally. Absent: respiratory distress , wheezes, rales, rhonchi, stridor CARDIOVASCULAR EXAM: regular rate, normal rhythm, normal heart sounds. Absent : systolic murmur, diastolic murmur, rubs, gallop, clicks GI/ABDOMINAL EXAM: soft, normal bowel sounds. Absent: distended, tenderness, guarding, rebound, rigid EXTREMITIES EXAM: Right lower extremity is in a cast BACK EXAM: normal inspection NEUROLOGICAL EXAM: alert, oriented X3, CN II-XII intact, motor sensory deficit PSYCHIATRIC EXAM: normal affect, normal mood SKIN EXAM: warm, dry, intact, normal color. Absent: rash CBC & Chem 7: 12/30/16 20:03 Labs: Abnormal Lab Results - Last 24 Hours (Table) 12/30/16 Range/Units 20:03 Neutrophils # 9.4 H (1.3-7.7) k/uL Lymphocytes # 0.6 L (1.0-4.8) k/uL ASSESSMENT Right bimalleolar ankle fracture - dislocated Hypertension GERD PLAN Patient's home medications have been reconciled yesterday. Medical reconciliation for discharge home medications done today. She was advised to continue with aspirin 325 mg for DVT prophylaxis. She was given a prescription for pain medications by her primary care team. She is being discharged home today.
== END 2017-01-01 15:26 | disposition home or self-care (01) | DRG 494 ==
LOC: 2ORMAIN 13:17 → 3SUR 18:31
PROVIDERS: ADMIT Orthopaedic Surgery; ATTEND Orthopaedic Surgery
PROC: 0QSJ04Z Reposition Right Fibula with Internal Fixation Device, Open Approach (ICD-10-PCS; principal; 2016-12-30 15:10)
PROC: 0QSG04Z Reposition Right Tibia with Internal Fixation Device, Open Approach (ICD-10-PCS; principal; 2016-12-30 15:10)
DX: S82.851A Displaced trimalleolar fracture of right lower leg, initial encounter for closed fracture (principal); I10 Essential (primary) hypertension; M81.0 Age-related osteoporosis without current pathological fracture; K21.9 Gastro-esophageal reflux disease without esophagitis; Z80.1 Family history of malignant neoplasm of trachea, bronchus and lung; Z87.891 Personal history of nicotine dependence; Z79.899 Other long term (current) drug therapy
CPT/HCPCS: 81003; 82306; 84132; 85025

== ENCOUNTER → 2017-12-27 | Outpatient (CLI) | payer MEDICARE ==
--- NOTE | 2017-12-29 08:52 | MM ---
Reason for exam: screening (asymptomatic). Last mammogram was performed 1 year and 9 months ago. History: Patient is postmenopausal and is nulliparous. Benign US left guided VAD of the left breast, March 16, 2011. Benign cyst aspiration of the left breast. Benign cyst aspiration of the right breast. Took estrogen for 11 years beginning at age 51. Took progesterone for 11 years beginning at age 51. Physical Findings: A clinical breast exam by your physician is recommended on an annual basis and results should be correlated with mammographic findings. MG 3D Screening Mammo W/Cad Bilateral CC and MLO view(s) were taken. Prior study comparison: March 23, 2016, bilateral MG 3d screening mammo w/cad. March 18, 2015, bilateral MG screening mammo w CAD. The breast tissue is heterogeneously dense. This may lower the sensitivity of mammography. Finding: There are typically benign dystrophic calcifications. There is a smaller appearing anterior depth lower inner quadrant left breast mass. No suspicious abnormality. Left breast marker noted. No significant changes in finding since March 23, 2016 and March 18, 2015. ASSESSMENT: Benign, BI-RAD 2 RECOMMENDATION: Routine screening mammogram of both breasts in 1 year.
== END | disposition home or self-care (01) ==
LOC: RADMAMWWP 15:33
PROVIDERS: ATTEND Internal Medicine
DX: Z12.31 Encounter for screening mammogram for malignant neoplasm of breast (principal)
CPT/HCPCS: 77063; 77067

== ENCOUNTER → 2018-01-10 | Outpatient (CLI) | payer MEDICARE ==
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
== END | disposition home or self-care (01) ==
LOC: RADUSWWP 15:35
PROVIDERS: ATTEND Internal Medicine
DX: S89.91XA Unspecified injury of right lower leg, initial encounter (principal)

== ENCOUNTER 2018-06-13 07:21 | Day surgery (SDC) | payer MEDICARE ==
[2018-06-06 12:53] VITALS: BMI 29.2
[~2018-06-13 07:21] MED LIST changes: -HYDROmorphone 1 MG/ML 1 ML SYRINGE IVP PRN; +LACTATED RINGERS 1,000 ML IV SCH; -MIDAZOLAM 2 MG/2 ML VIAL IV PRN; +MOXIFLOXACIN HCL 0.5% DROPS 3 ML BTL OP NR; -ONDANSETRON 4 MG/2 ML VIAL IVP ONE; +TETRACAINE 0.5% OPHTH (PF) DROPS 4 ML BTL OP NR; +TIMOLOL 0.5% OPHTH DROPS 5 ML BTL OP NR; +TOBRA-DEXAMET 0.3-0.1% OPHTH DROPS 2.5 ML BTL OPHTHALMIC NR; -ceFAZolin 2 GM in SODIUM CHLORIDE 0.9% 100 ML IVPB ONE
[2018-06-13 07:43] VITALS: RESP 16; TEMP 98.4
[2018-06-13] MEDS: PILOCARPINE 2% OPHTH DROPS 15 ML BTL OP NR ×2 (07:50→08:21)
[2018-06-13] MEDS ORDERED: LIDOCAINE 1% 20 ML VIAL (10MG/ML) FOR IV START INTRADERMA ONE (07:58)
[2018-06-13] MEDS ORDERED: fentaNYL (PF) 50 MCG/ML 2 ML AMP ONE (08:08)
[2018-06-13] MEDS ORDERED: EPINEPHrine (PF) 0.3 ML in BALANCED SALT IRRIG SOLN COMB2 500 ML IRRIGATION ONE (08:11)
[2018-06-13] MEDS ORDERED: BALANCED SALT IRRIG SOLN COMB2 15 ML IRRIG.SOLN INTRAOCULA ONE (08:17)
[2018-06-13] MEDS ORDERED: LIDOCAINE 1% (PF) 10MG/ML VIAL SQ ONE (08:17)
--- NOTE | 2018-06-13 08:35 | P.OP ---
Date of Procedure: 06/13/18 Preoperative Diagnosis: POAG Postoperative Diagnosis: same Procedure(s) Performed: goniotomy Implants: none Anesthesia: MAC Surgeon: Kingston Smith Estimated Blood Loss (ml): 0 Pathology: none sent Condition: stable Disposition: same day Indications for Procedure: poorly controlled glaucoma Operative Findings: no complications
[2018-06-13 08:58] VITALS: BP 154/97; PULSE 65
--- NOTE | 2018-06-13 15:09 | OP ---
OPERATIVE REPORT DATE OF SURGERY: 06/13/2018. PROCEDURE: Goniotomy of the left eye. PREOPERATIVE DIAGNOSIS: Primary open-angle glaucoma and intolerance to topical medications. POSTOPERATIVE DIAGNOSIS: Primary open-angle glaucoma and intolerance to topical medications. SURGEONS: Dr. Kingston Smith. ANESTHESIA: Topical. ESTIMATED BLOOD LOSS: None. SPECIMEN TAKEN: None. NARRATIVE: After obtaining the appropriate consent, the patient was brought to the operating room. There she was placed under cardiac monitoring, prepped and draped in the usual sterile manner. She was approached from her left temporal side and at the 3 o'clock position, a 2.5 mm keratome was used to create a self-sealing corneal flap incision. Through this opening, 1% Xylocaine MPF 50/50 mix with balanced salt solution was injected into the anterior chamber. This was followed by installation of tri guzman blue which was left in place for 30 seconds. This was irrigated away and Viscoat was then used to stabilize the anterior chamber. The patient was then asked to rotate her head approximately 45 degrees to her right and maintain gaze in that particular direction. A small amount of Viscoat was placed on the patient's cornea and goniotomy prism was used to identify the trabecular meshwork. Using a Sekal [place]ook dual blade goniotomy knife, using the kendell and meet method, the trabecular meshwork between 11 and 8 o'clock was removed without difficulty. A small amount of bleeding was encountered as normally expected. The patient was then placed into the normal supine position and the remaining viscoelastic was removed from the anterior chamber along with removal of some of the coagulated blood. The eye was brought to normal intraocular pressure through the temporal incision and the temporal incision was hydrated slightly. She received 2 drops of 0.5% timolol followed by 2 drops of moxifloxacin, was then lightly patched and shielded in the usual manner. There were no complications from the procedure. She tolerated the procedure well and was returned to outpatient recovery in good condition. MMODL / IJN: [id number] /
== END 2018-06-13 09:17 | disposition home or self-care (01) ==
LOC: OR 07:21
PROVIDERS: ATTEND Ophthalmology
DX: H40.1131 Primary open-angle glaucoma, bilateral, mild stage (principal); H40.053 Ocular hypertension, bilateral; H04.123 Dry eye syndrome of bilateral lacrimal glands; G43.109 Migraine with aura, not intractable, without status migrainosus; L23.9 Allergic contact dermatitis, unspecified cause; Z96.1 Presence of intraocular lens; H52.4 Presbyopia; H00.026 Hordeolum internum left eye, unspecified eyelid; H00.023 Hordeolum internum right eye, unspecified eyelid; I10 Essential (primary) hypertension; K21.9 Gastro-esophageal reflux disease without esophagitis; Z79.899 Other long term (current) drug therapy; Z88.8 Allergy status to other drugs, medicaments and biological substances; Z88.1 Allergy status to other antibiotic agents; Z91.030 Bee allergy status; Z87.891 Personal history of nicotine dependence
CPT/HCPCS: 65820; J0171; J3010; J2001

== ENCOUNTER 2018-11-22 19:54 | Emergency (ER) | payer MEDICARE ==
[2018-11-22] MEDS ORDERED: amLODIPine 5 MG TAB PO STA (20:59)
--- NOTE | 2018-11-22 21:45 | ED ---
General Adult HPI - General Chief complaint: Recheck/Abnormal Lab/Rx Stated complaint: Hypertension Time Seen by Provider: 11/22/18 20:28 Source: patient, RN notes reviewed, old records reviewed Mode of arrival: ambulatory Limitations: no limitations - History of Present Illness Initial comments: 72-year-old female patient past medical history of hypertension presents to ED for asymptomatic hypertension. Patient reports that approximately 2 days ago she took her blood pressure and she noticed it to be elevated approximately 160/100. Patient reports that yesterday she went to her primary care provider who admitted 5 mg Norvasc under her blood pressure regimen. Patient presented today she took her blood pressure with an at-home cough which displayed multiple readings approximate 150/100. Patient when she attempted to follow up with her primary care provider but is unable to be seen today. Patient states that she then presented to the ED for continued evaluation for blood pressure. Patient denies any complaints at this time. Denies any chest pain shortness with abdominal pain, nausea vomiting diarrhea. Patient reports she did have a very mild bitemporal headache approximately 5 hours ago which resolved without any intervention. Currently asymptomatic. Systemic: Pt denies fatigue, fever/chills, rash. Pt denies weakness, night swe ats, weight loss. Neuro: Pt denies headache, visual disturbances, syncope or pre-syncope. HEENT: Pt denies ocular discharge or irritation, otalgia, rhinorrhea, pharyngitis or notable lymphadenopathy. Cardiopulmonary: Pt denies chest pain, SOB, heart palpitations, dyspnea on exertion. Abdominal/GI: Pt denies abdominal pain, n/v/d. : Pt denies dysuria, burning w/ urination, frequency/urgency. Denies new onset urinary or bowel incontinence. MSK: Pt denies myalgia, loss of strength or function in extremities. Neuro: Pt denies new onset weakness, paresthesias. - Related Data Home Medications Medication Instructions Recorded Confirmed Losartan-Hctz 50-12.5 mg [Hyzaar 2 tab PO QAM 01/26/14 11/22/18 50-12.5] Pantoprazole Sodium [Protonix] 40 mg PO QAM 01/26/14 11/22/18 Oxybutynin Chloride [Ditropan XL] 5 mg PO DAILY 01/14/16 11/22/18 cycloSPORINE 0.05% OPHTH SOLN 1 drop LEFT EYE BID 01/14/16 11/22/18 [Restasis] Biotin 5 mg PO DAILY 12/16/16 11/22/18 Glucosam/Jimi-Msm1/C/Miguel/Bosw 1 each PO DAILY 06/06/18 11/22/18 [Glucosamine-Chondroitin Tablet] Multivitamins, Thera [Multivitamin 1 tab PO DAILY 06/06/18 11/22/18 (formulary)] [place]-3 Fatty Acids [[place]-3] 1,000 mg PO DAILY 06/06/18 11/22/18 Cholecalciferol (Vitamin D3) 2,000 unit PO DAILY 07/09/18 11/22/18 [Vitamin D3] Previous Rx's Medication Instructions Recorded amLODIPine [Norvasc] 2.5 mg PO DAILY 14 Days #14 tablet 11/22/18 Allergies Allergy/AdvReac Type Severity Reaction Status Date / Time venom-honey bee Allergy Severe Anaphylaxis Verified 11/22/18 20:05 [bee venom (honey bee)] neomycin Allergy Mild Rash/Hives Verified 11/22/18 20:05 [From Neosporin ([id number])] polymyxin B Allergy Mild Rash/Hives Verified 11/22/18 20:05 [From Neosporin ([id number])] famotidine [From Pepcid] Allergy Itching Verified 11/22/18 20:05 Review of Systems ROS Statement: Those systems with pertinent positive or pertinent negative responses have been documented in the HPI. ROS Other: All systems not noted in ROS Statement are negative. Past Medical History Past Medical History: Eye Disorder, GERD/Reflux, Hypertension, Musculoskeletal Disorder, Osteoarthritis (OA) Additional Past Medical History / Comment(s): RT EYE glaucoma. SPINAL STENOSIS. REFERRED TO DR MOJICA D/T INCR HTN IN FEW WEEKS, INCREASED DOSE OF RX. History of Any Multi-Drug Resistant Organisms: None Reported Past Surgical History: Orthopedic Surgery Additional Past Surgical History / Comment(s): RIGHT FOOT SURGERY WITH 7 SCREWS, RIGHT ANKLE SURGERY WITH 11 SCREWS AND 3 PLATES, LEFT FOOT BUNION SURGERY. BILATERAL CATARACTS. 06/13/18 LT EYE GONIOTOMY. Past Anesthesia/Blood Transfusion Reactions: No Reported Reaction Additional Past Anesthesia/Blood Transfusion Reaction / Comment(s): "Dad acted u nruly coming out of anesthesia." Past Psychological History: No Psychological Hx Reported Smoking Status: Former smoker Past Alcohol Use History: None Reported Past Drug Use History: None Reported - Past Family History Father Family Medical History: Cancer Additional Family Medical History / Comment(s): LUNG CANCER Mother Family Medical History: Cancer Additional Family Medical History / Comment(s): OVARIAN CANCER General Exam - General Exam Comments Initial Comments: Constitutional: NAD, AOX3, Pt has pleasant affect. HEENT: NC/AT, trachea midline, neck supple, no lymphadenopathy. Posterior pharynx non erythematous, without exudates. External ears appear normal, without discharge. Mucous membranes moist. Eyes PERRLA, EOM intact. There is no scleral icterus. No pallor noted. Cardiopulmonary: RRR, no murmurs, rubs or gallops, no JVD noted. Lungs CTAB in anterior and posterior hope. No peripheral edema. Abdominal exam: Abdomen soft and non-distended. Abdomen non-tender to palpation in all 4 quadrants. Bowel sounds active in LLQ. No hepatosplenomegaly. No ecchymosis Neuro: CN II-XII grossly intact. No nuchal rigidity. No raccon eyes, no cox sign, no hemotympanum. No cervical spinal tenderness. MSK: No posterior calf tenderness bilaterally, homans sign negative bilaterally. Posterior tibialis and radial pulse +2 bilaterally. Sensation intact in upper and lower extremities. Full active ROM in upper and lower extremities, 5/5 stregnth. Limitations: no limitations Course Vital Signs 11/22/18 11/22/18 11/22/18 20:01 20:40 21:52 Temperature 98.7 F 97.2 F L Pulse Rate 82 58 L Respiratory 20 16 Rate Blood Pressure 153/102 153/104 149/88 O2 Sat by Pulse 95 94 L Oximetry Medical Decision Making - Medical Decision Making 72-year-old female patient past medical history of hypertension presents to ED for asymptomatic hypertension. Patient reports that approximately 2 days ago she took her blood pressure and she noticed it to be elevated approximately 160/100. Patient reports that yesterday she went to her primary care provider who admitted 5 mg Norvasc under her blood pressure regimen. Patient presented today she took her blood pressure with an at-home cough which displayed multiple readings approximate 150/100. Patient when she attempted to follow up with her primary care provider but is unable to be seen today. Patient states that she then presented to the ED for continued evaluation for blood pressure. Patient denies any complaints at this time. Denies any chest pain shortness with abdominal pain, nausea vomiting diarrhea. Patient reports she did have a very mild bitemporal headache approximately 5 hours ago which resolved without any intervention. Currently asymptomatic. Pt VS displayed bp of 153/104. Physical exam densely acute pathology. Neurologic exam within normal limits 2. Patient administered 2.5 mg Norvasc. Patient discharged with an additional 2.5 mg Norvasc on a daily regimen. Rpt BP within acceptable limits. Patient to follow up with primary care provider tomorrow. Patient return to ER if condition worsens. Case discussed with Dr. Krueger. Disposition Clinical Impression: Hypertension Disposition: HOME SELF-CARE Condition: Stable Instructions (If sedation given, give patient instructions): Hypertension (ED) Additional Instructions: Patient to adhere to previously discussed treatment plan and will take medication(s) as directed. Patient to follow up with PCP in 1-2 days. Patient to return to ED if symptoms do not improve. Please follow-up with primary care provider tomorrow. Please take additional 2.5 mg norvasc per day, Total 7.5 mg. Return to ER if condition worsens in any way. Prescriptions: amLODIPine [Norvasc] 2.5 mg PO DAILY 14 Days #14 tablet Is patient prescribed a controlled substance at d/c from ED?: No Referrals: Roz Velazquez MD [Primary Care Provider] - 1-2 days
[2018-11-22 21:56] VITALS: BP 149/88; RESP 16
[2018-11-22 22:23] VITALS: PULSE 60; TEMP 97.9
== END 2018-11-22 22:20 | disposition home or self-care (01) ==
LOC: EC 19:54
DX: I10 Essential (primary) hypertension (principal); K21.9 Gastro-esophageal reflux disease without esophagitis; H40.9 Unspecified glaucoma; Z87.891 Personal history of nicotine dependence; Z88.1 Allergy status to other antibiotic agents; Z88.8 Allergy status to other drugs, medicaments and biological substances; Z91.030 Bee allergy status; Z79.899 Other long term (current) drug therapy
CPT/HCPCS: 99283

== ENCOUNTER → 2019-04-12 | Outpatient (CLI) | payer MEDICARE ==
--- NOTE | 2019-04-15 08:27 | MM ---
Reason for exam: screening (asymptomatic). Last mammogram was performed 1 year and 3 months ago. History: Patient is postmenopausal and is nulliparous. Benign US left guided VAD of the left breast, March 16, 2011. Benign cyst aspiration of the left breast. Benign cyst aspiration of the right breast. Took estrogen for 11 years beginning at age 51. Took progesterone for 11 years beginning at age 51. Physical Findings: A clinical breast exam by your physician is recommended on an annual basis and results should be correlated with mammographic findings. MG 3D Screening Mammo W/Cad Bilateral CC and MLO view(s) were taken. Prior study comparison: December 27, 2017, bilateral MG 3d screening mammo w/cad. March 23, 2016, bilateral MG 3d screening mammo w/cad. The breast tissue is heterogeneously dense. This may lower the sensitivity of mammography. Benign appearing calcifications in the left breast. Previous mammotome biopsy in the left breast. No significant changes when compared with prior studies. ASSESSMENT: Benign, BI-RAD 2 RECOMMENDATION: Routine screening mammogram of both breasts in 1 year.
== END | disposition home or self-care (01) ==
LOC: RADMAMWWP 11:52
PROVIDERS: ATTEND Internal Medicine
DX: Z12.31 Encounter for screening mammogram for malignant neoplasm of breast (principal)
CPT/HCPCS: 77063; 77067

== ENCOUNTER → 2020-01-20 | Outpatient (CLI) | payer MEDICARE ==
[2020-01-20 13:40] LABS: HCT 37.3 % (34.0-46.0); HGB 12.3 gm/dL (11.4-16.0); MCH 29.7 pg (25.0-35.0); MCHC 32.9 g/dL (31.0-37.0); MCV 90.2 fL (80.0-100.0); Mean Platelet Volume 6.6; Platelet Count 250 k/uL (150-450); RBC 4.14 m/uL (3.80-5.40); RDW 13.2 % (11.5-15.5)
[2020-01-20 13:46] LABS: INR 0.9 (<1.2); Partial Thromboplastin Time 23.4 sec (22.0-30.0); Prothrombin Time 9.5 sec (9.0-12.0)
[2020-01-20 13:56] LABS: Albumin 4.2 g/dL (3.5-5.0); Calcium 9.2 mg/dL (8.4-10.2); Potassium 4.1 mmol/L (3.5-5.1); Total Bilirubin 0.5 mg/dL (0.2-1.3); Total Protein 6.9 g/dL (6.3-8.2)
[2020-01-20 14:01] LABS: Appearance,Urine Clear (Clear); Bilirubin,Urine Negative (Negative); Blood,Urine Negative (Negative); Color,Urine Light Yellow; Glucose,Urine (UA) Negative (Negative); Ketones,Urine Negative (Negative); Leukocyte Esterase,Urine Negative (Negative); Nitrite,Urine Negative (Negative); Protein,Urine Negative (Negative); Specific Gravity,Urine 1.014 (1.001-1.035); Urobilinogen,Urine <2.0 mg/dL (<2.0)
== END ==
LOC: LABPAT 11:57
PROVIDERS: ATTEND Orthopaedic Surgery
DX: Z01.818 Encounter for other preprocedural examination (principal); Z01.812 Encounter for preprocedural laboratory examination
CPT/HCPCS: 80053; 81003; 85027; 85610; 85730; 87070

== ENCOUNTER 2020-01-28 08:02 | Day surgery (SDC) | payer MEDICARE ==
[2020-01-22 09:21] VITALS: BMI 30.7
[~2020-01-28 08:02] MED LIST changes: +ACETAMINOPHEN TAB 500 MG TAB PO ONE; +DEXAMETHASONE SOD PHOSPHATE 10 MG/ML 1 ML VIAL IV ONE; +GABAPENTIN 300 MG CAP PO ONE; +HYDROmorphone 0.5 MG/0.5 ML SYRINGE IVP PRN; -LACTATED RINGERS 1,000 ML IV SCH; +LIDOCAINE 1% (10MG/ML) FOR IV START INTRADERMA PRN; +MELOXICAM 7.5 MG TAB PO ONE; +MIDAZOLAM 2 MG/2 ML VIAL IV PRN; -MOXIFLOXACIN HCL 0.5% DROPS 3 ML BTL OP NR; -TETRACAINE 0.5% OPHTH (PF) DROPS 4 ML BTL OP NR; -TIMOLOL 0.5% OPHTH DROPS 5 ML BTL OP NR; -TOBRA-DEXAMET 0.3-0.1% OPHTH DROPS 2.5 ML BTL OPHTHALMIC NR; +TRANEXAMIC ACID 1,000 MG in SODIUM CHLORIDE 0.9% 100 ML IVPB ONE; +fentaNYL (PF) 50 MCG/ML 2 ML AMP IVP PRN
[2020-01-28] MEDS ORDERED: ACETAMINOPHEN TAB 500 MG TAB ONE (08:09)
[2020-01-28] MEDS: LACTATED RINGERS 1,000 ML IV SCH ×2 (08:20→21:11)
[2020-01-28] MEDS ORDERED: fentaNYL (PF) 50 MCG/ML 2 ML AMP ONE (08:58)
[2020-01-28] MEDS ORDERED: MIDAZOLAM 2 MG/2 ML VIAL ONE (08:58)
[2020-01-28] MEDS ORDERED: SODIUM CHLORIDE 0.9% IRRIG 1,000 ML BTL IRRIGATION ONE (08:58)
[2020-01-28] MEDS ORDERED: PROPOFOL 10 MG/ML 20 ML VIAL IV ONE (08:58)
[2020-01-28] MEDS ORDERED: HEPARIN SODIUM,PORCINE 10,000 UNIT/ML 1 ML VIAL ONE (08:58)
[2020-01-28] MEDS ORDERED: PHENYLEPHRINE-0.9% NACL SYG 1 MG/10 ML SYRINGE ONE (08:58)
[2020-01-28] MEDS ORDERED: TRANEXAMIC ACID 1,000 MG/10 ML VIAL ONE (08:58)
[2020-01-28] MEDS ORDERED: ePHEDrine SULFATE/0.9% NACL/PF 50 MG/5 ML SYRINGE IV ONE (08:58)
[2020-01-28] MEDS ORDERED: SODIUM CHLORIDE 0.9% 100 ML BAG ONE (08:58)
[2020-01-28] MEDS ORDERED: ceFAZolin 3,000 MG in SODIUM CHLORIDE 0.9% IRRIGATIO 3,000 ML IRRIGATION ONE (09:03)
[2020-01-28] MEDS ORDERED: ONDANSETRON 4 MG/2 ML VIAL IVP PRN (09:17)
[2020-01-28] MEDS ORDERED: HYDROmorphone 0.5 MG/0.5 ML SYRINGE IVP PRN ×3 (09:17)
[2020-01-28] MEDS ORDERED: HYDROcodone/APAP 5-325MG 1 EACH TAB PO PRN ×2 (09:17)
[2020-01-28] MEDS ORDERED: MAGNESIUM HYDROXIDE 2,400 MG/10 ML CUP PO PRN (09:17)
[2020-01-28] MEDS ORDERED: NALOXONE 0.4 MG/ML 1 ML VIAL IV PRN (09:17)
[2020-01-28] MEDS: ROPIVACAINE 246.25 MG, EPINEPHrine 0.5 MG, KETOROLAC 30 MG, cloNIDine HCL/PF 80 MCG, WA... MISCELLANE ONE ×10 (09:32→10:07)
--- NOTE | 2020-01-28 10:29 | FL ---
EXAMINATION TYPE: FL guidance operating room DATE OF EXAM: 01/28/2020 HISTORY: Fluoroscopy time 62 seconds of fluoroscopy provided. IMPRESSION: 1. Fluoroscopy time.
--- NOTE | 2020-01-28 10:30 | XR ---
EXAMINATION TYPE: XR Hip Limited RT DATE OF EXAM: 01/28/2020 COMPARISON: NONE HISTORY: Postop TECHNIQUE: One view submitted. FINDINGS: There is postsurgical change in near anatomic alignment. There is soft tissue edema and emphysema. IMPRESSION: 1. Postoperative change. Appears in near-anatomic alignment.
--- NOTE | 2020-01-28 10:32 | P.OP ---
Date of Procedure: 01/28/20 Preoperative Diagnosis: Severe osteoarthritis right hip Postoperative Diagnosis: Severe osteoarthritis right hip Procedure(s) Performed: Right total hip arthroplasty with a direct anterior approach Implants: Laboy and nephew Polarstem size 3 standard Laboy [employer] Nephew R3, 3 hole acetabular shell, 52 mm [employer]oy [employer] Nephew reflection 6.5 mm cancellus screw, 20 mm 2 [employer]oy [employer] Nephew R3, XLPE 20 acetabular liner Laboy [employer] Nephew Oxinium femoral head 36 m, +4 All components were press-fit. The articulation is Oxinium on polyethylene. Anesthesia: spinal Surgeon: Hermelindo Talamantes Night Assistant #1: Aria Santiago Estimated Blood Loss (ml): 100 Pathology: other (Femoral head) Condition: stable Disposition: PACU Indications for Procedure: After failure of conservative treatment we discussed the surgical and nonsurgical treatment options at length. Patient wishes to proceed with a total hip arthroplasty with a direct anterior approach. Complications specific to this procedure were discussed at length, including but not limited to infection, leg length discrepancy, dislocation, and nerve injury. Covid-19 was also discussed at length with the patient, and they are aware of the current policies and procedures. The patient was given the option of delaying surgery, but they elect to proceed knowing these risks. Patient is aware of all these complications and informed consent was obtained Operative Findings: The operative findings are consistent with severe osteoarthritis of the right hip Description of Procedure: Patient was seen and evaluated in the preoperative area, consent was reviewed, and the surgical site was marked with a skin marker. Patient was then brought to the operating room and given prophylactic antibiotics intravenously. 1 g of Tranexamic acid was also given. A spinal anesthetic was administered by the anesthesia department. The patient was then placed on the Hope table with the bony prominences well-padded. The hip area was then prepped and draped in usual sterile fashion. A universal timeout was then performed, which confirmed the patient's name, surgical site, ALLERGIES, and procedure being performed. Next the incision site was located at 1 cm distal and 1 cm lateral to the anterior superior iliac spine. The skin and subcutaneous tissues were sharply incised. Incision was carefully dissected down to the fascia overlying the tensor fascia palak muscle. This fascia was then incised in line with the incision. Next, using blunt finger dissection, the tensor fascia palak muscle was dissected off its investing fascia. The muscle was then carefully retracted laterally with a cobra retractor over the lateral neck of the femur. Next, the circumflex vessels were identified and cauterized using the AquaMantis device. The anterior hip capsule was then exposed. The capsule was then opened and an inverted T fashion. Cobra retractors were then placed intracapsularly. The proximal femur was then visualized. The femoral neck was then osteotomized appropriate level above the lesser trochanter. Small amount of traction was placed with the Hope table. A small wedge of bone was then removed from the remaining femoral head. Next, using a corkscrew femoral head was easily removed from the acetabulum. On gross visual inspection, the femoral head had complete loss of articular cartilage in multiple periarticular osteophytes. Attention was then turned to the acetabulum. the acetabulum was exposed and any remaining labrum was excised. Sequential reaming of the acetabulum was performed using fluoroscopic guidance. When the appropriate size was reached, a trial was then placed. The position and fit of the trial was checked with fluoroscopy. The trial was then removed. Then, using fluoroscopic guidance, the final implant was impacted at 20 of anteversion and 40 of abduction, and fully seated in the acetabulum. 2 screws were then placed in the acetabulum. Again fluoroscopy was used to check position of the screws. Next, the liner was then impacted, with a 20 elevated liner located in the anterior superior quadrant. Component locking was confirmed. Attention was then directed to the femur. With the aid of the Hope table, the femur was externally rotated to approximately 130, extended, and abducted under the opposite leg. A side hook was then placed under the proximal femur, and the side hook elevator was used to elevate the proximal femur. Retractors were then placed. A capsular release was performed, as well as a release of the conjoined tendon, which afforded excellent visualization of the proximal femur. Next, a box osteotome was used to lateralize the proximal femur. A hand sign writer was then used to locate the femoral canal. Sequential broaching was then performed with appropriate size which afforded excellent fixation in the proximal femur. A trial was then placed with appropriate head and neck, and the hip was gently reduced with the aid of the Hope table. Fluoroscopy was then used to check position of the components, as well as to ensure equal leg lengths. The hip was then gently dislocated and the trials were then removed. Final implants were then impacted and the hip was again reduced. Final fluoroscopic x-rays confirmed that the components were in anatomic position, as well as equal leg lengths. The hip was also taken through range of motion, and found to be stable. The hip was then copiously irrigated with antibiotic solution with pulsatile lavage. The hip was then irrigated with Irrisept solution. The soft tissues were then injected with a ropivacaine solution, which consisted of 246.25 mg of ropivacaine, 0.5 mg of epinephrine, 30 mg of Toradol, 80 g of clonidine, and 48.45 mL of sterile water, for a total of 100 mL of fluid injected. A second dose of 1 g of Tranexamic acid was also given. the fascia was then closed with 2-0 strata fix suture. The subcutaneous tissue was closed with 3-0 Vicryl. The subcuticular tissue was closed with 3-0 strata fix suture. The skin was then closed with Dermabond glue and a sterile silver dressing. The patient was then transferred to the recovery room in stable condition. The veterinary technician assistant BRENDA Russell was required due to the complexity of surgery, and the need for skilled certified surgical assistant for positioning, draping, exposure, retraction, and closure of the wound.
--- NOTE | 2020-01-28 10:57 | XR ---
EXAMINATION TYPE: XR Hip Limited RT DATE OF EXAM: 01/28/2020 COMPARISON: NONE HISTORY: Postop TECHNIQUE: One view submitted. FINDINGS: There is postsurgical change in near anatomic alignment. There is soft tissue edema and emphysema. C alcification the pelvis likely related to calcified uterine fibroid. Correlate clinically. IMPRESSION: 1. Postoperative change. Appears in near-anatomic alignment.
[2020-01-28] MEDS ORDERED: SODIUM CHLORIDE 0.9% 1,000 ML IV ONE (11:07)
[2020-01-28] MEDS ORDERED: HYDROmorphone 0.5 MG/0.5 ML SYRINGE IVP ONE (12:25)
[2020-01-28] MEDS ORDERED: LATANOPROSTENE BUNOD RIGHT EYE SCH (21:00)
[2020-01-28] MEDS ORDERED: SENNOSIDES-DOCUSATE SODIUM 1 EACH TAB PO SCH (21:00)
[2020-01-28] MEDS: ASPIRIN 325 MG TAB PO SCH (21:10)
[2020-01-28] MEDS: SODIUM CHLORIDE 0.9% 1,000 ML IV SCH (21:11)
[2020-01-28] MEDS: cycloSPORINE 0.05% OPHTH 0.4 ML DROPERETTE BOTH EYES SCH (21:12)
--- NOTE | 2020-01-28 23:31 | P.CONS ---
History of Present Illness - Reason for Consult Consult date: 01/28/20 Medical Management - Chief Complaint Elective right hip arthroplasty - History of Present Illness patient is a 74-year-old female with a known history of hypertension, hyperlipidemia, osteoarthritis, spinal stenosis and bilateral glaucoma was admitted to the hospital for right total hip arthroplasty. Patient underwent right total hip arthroplasty with a direct anterior approach. Currently pain is controlled. Patient is lying in bed comfortably. Denied any complaints of chest pain or shortness of breath. No nausea vomiting abdominal pain or diarrhea. No fever no chills. Denies any recent illnesses. Postoperatively blood pressure is 99/62 and pulse is 70 and respiration 18 and pulse ox 99% on room air. Review of Systems Constitutional: Patient denies any fever or chills . No generalized weakness or weight loss. Abdomen: Patient denied nausea vomiting and diarrhea and abdominal pain. Cardiovascular: Patient denies any chest pain or short of breath no palpitations. Respiratory: patient denied any cough is from production. No shortness of breath Neurologic: Patient denied any numbness or tingling headache. Musculoskeletal: Patient denies any complaints of joint swelling or deformity. Skin: Negative Psychiatric: Negative Endocrine: No heat or cold intolerance. No recent weight gain. Genitourinary: No dysuria or hematuria. All other 14 point ROS negative except the above Past Medical History Past Medical History: Eye Disorder, GERD/Reflux, Hyperlipidemia, Hypertension, M usculoskeletal Disorder, Osteoarthritis (OA) Additional Past Medical History / Comment(s): Bilateral Glaucoma. SPINAL STENOSIS. History of Any Multi-Drug Resistant Organisms: None Reported Past Surgical History: Orthopedic Surgery Additional Past Surgical History / Comment(s): RIGHT FOOT SURGERY WITH 7 SCREWS, RIGHT ANKLE SURGERY WITH 11 SCREWS AND 3 PLATES, LEFT FOOT BUNION SURGERY, BILATERAL CATARACT SURGERY. Bilateral EYE GONIOTOMY. Mortons Neuroma surgery on left foot. Cortisone shot right foot. Past Anesthesia/Blood Transfusion Reactions: No Reported Reaction Additional Past Anesthesia/Blood Transfusion Reaction / Comm: "Dad acted unruly coming out of anesthesia." Past Psychological History: No Psychological Hx Reported Smoking Status: Former smoker Past Alcohol Use History: None Reported Additional Past Alcohol Use History / Comment(s): QUIT SMOKING 2007. SMOKED 1 PPD OR LESS. SMOKED 41 YEARS. Past Drug Use History: None Reported - Past Family History Father Family Medical History: Cancer Additional Family Medical History / Comment(s): LUNG CANCER. Mother Family Medical History: Cancer Additional Family Medical History / Comment(s): OVARIAN CANCER. Medications and Allergies Home Medications Medication Instructions Recorded Confirmed Type Losartan-Hctz 50-12.5 mg [Hyzaar 2 tab PO QAM 01/26/14 01/28/20 History 50-12.5] Pantoprazole Sodium [Protonix] 40 mg PO QAM 01/26/14 01/28/20 History cycloSPORINE 0.05% OPHTH SOLN 1 drop BOTH EYES BID 01/14/16 01/28/20 History [Restasis] Biotin 5 mg PO DAILY 12/16/16 01/28/20 History Multivitamins, Thera [Multivitamin 1 tab PO DAILY 06/06/18 01/28/20 History (formulary)] Watts-3 Fatty Acids [Watts-3] 1,000 mg PO DAILY 06/06/18 01/28/20 History Glucosamine/Chondr Epps A Sod [Osteo 1 each PO DAILY 01/22/20 01/28/20 History Bi-Flex Caplet] Latanoprostene Bunod [Vyzulta] 1 drop RIGHT EYE HS 01/22/20 01/28/20 History Melatonin (Unknown Dose) 1 tab PO HS 01/22/20 01/28/20 History Oxybutynin Chloride 5 mg PO QAM 01/22/20 01/28/20 History Pravastatin Sodium [Pravachol] 40 mg PO DAILY 01/22/20 01/28/20 History amLODIPine [Norvasc] 7.5 mg PO QAM 01/22/20 01/28/20 History Allergies Allergy/AdvReac Type Severity Reaction Status Date / Time venom-honey bee Allergy Severe Anaphylaxis Verified 01/28/20 08:46 [bee venom (honey bee)] neomycin Allergy Mild Rash/Hives Verified 01/28/20 08:46 [From Neosporin ([id number])] polymyxin B Allergy Mild Rash/Hives Verified 01/28/20 08:46 [From Neosporin ([id number])] famotidine [From Pepcid] Allergy Itching Verified 01/28/20 08:46 Physical Exam Vitals: Vital Signs Temp Pulse Resp BP Pulse Ox 01/28/20 16:00 77 16 01/28/20 15:00 97.6 F 77 16 106/69 88 L 01/28/20 14:30 72 18 100/62 100 01/28/20 14:00 70 18 99/62 99 01/28/20 13:30 74 16 104/60 98 01/28/20 13:00 69 16 101/63 97 01/28/20 12:30 78 16 107/64 92 L 01/28/20 12:00 79 16 110/68 93 L 01/28/20 11:30 79 14 103/65 93 L 01/28/20 11:15 75 14 103/60 92 L 01/28/20 11:00 72 18 104/56 92 L 01/28/20 10:45 67 16 94/56 92 L 01/28/20 10:33 97.0 F L 88 14 97/58 94 L 01/28/20 08:37 99.5 F 75 16 141/86 95 Intake and Output 01/28/20 01/28/20 01/28/20 06:59 14:59 22:59 Intake Total 851 Output Total 100 Balance 751 Intake: IV 851 Output: Estimated Blood Loss 100 Other: Weight 81.9 kg 81.9 kg PHYSICAL EXAMINATION: Patient is lying in the bed comfortably, no acute distress, awake alert and oriented.. HEENT: Normocephalic. Neck is supple. Pupils reactive. Nostrils clear. Oral cavity is moist. Ears reveal no drainage. Neck reveals no JVD, carotid bruits, or thyromegaly. CHEST EXAMINATION: Trachea is central. Symmetrical expansion. Lung hope clear to auscultation and percussion. CARDIAC: Normal S1, S2 with no gallops. No murmurs ABDOMEN: Soft. Bowel sounds normal. No organomegaly. No abdominal bruits. Extremities: reveal no edema. No clubbing or cyanosis Neurologically awake, alert, oriented x3 with well-coordinated movements. No focal deficits noted Skin: No rash or skin lesions. Psychiatric: Coperative. Nonsuicidal Musculoskeletal: No joint swelling or deformity. Normal range of motion. Assessment and Plan Assessment: Status post right total hip arthroplasty postoperative day 0 Hypertension. Patient is currently hypotensive Hyperlipidemia GERD Osteoarthritis Bilateral glaucoma Spinal stenosis Obesity with BMI 31.0 Previous history of smoking Plan: Patient will be continued on pain management and bowel regimen. DVT prophylaxis. Encourage incentive spirometry and ambulation. Patient does take Norvasc, lisinopril/hydrochlorothiazide at home which are on hold currently due to hypotension. Can be started back once her blood pressure improves. Monitor H&H and follow-up closely. Further recommendations based on the clinical course. Thank you for your consult.
[2020-01-29 02:02] VITALS: PULSE 73; RESP 18
[2020-01-29] MEDS: SODIUM CHLORIDE 0.9% 1,000 ML IV SCH (02:12)
[2020-01-29] MEDS: ASPIRIN 325 MG TAB PO SCH (07:28)
[2020-01-29] MEDS: cycloSPORINE 0.05% OPHTH 0.4 ML DROPERETTE BOTH EYES SCH (07:29)
--- NOTE | 2020-01-29 08:25 | P.DS ---
Providers Expected date of discharge: 01/29/20 Attending physician: Hermelindo Talamantes Consults: 01/28/20 09:17 Consult Physician Routine Consulting Provider: Grace Alicia Consult Reason/Comments: medical management Do you want consulting provider notified?: Yes Primary care physician: Roz Velazquez - Discharge Diagnosis(es) (1) Osteoarthritis of right hip Current Visit: Yes Status: Acute (2) Status post total hip replacement, right Current Visit: Yes Status: Acute Hospital Course: This is a 74-year-old female with known history of degenerative arthritis of the right hip. The patient presents for evaluation. After discussion and consideration patient elects to proceed with total hip arthroplasty. The patient is seen preoperatively by Dr. Talamantes and medically cleared for surgery by their primary care physician. Patient is admitted to [facility] on 01/28/2020 for total hip arthroplasty. The procedures performed without complication or sequelae. The patient is doing well postoperatively. Labs and vital signs are stable on day of discharge. On day of discharge patient's hip incision is healing well. There is minimal erythema. There is no drainage noted at this time. There is minimal soft tissue swelling to the hip and thigh. Patient has full foot and ankle motion without difficulty or pain. Calf is soft and nontender to palpation. Neurovascular status to the right lower extremity is intact. Patient is discharged home in good condition. Opioid start talking form is reviewed and signed at patient bedside. Please see med rec for accurate list of home medications. Plan - Discharge Summary Discharge Rx Participant: Yes New Discharge Prescriptions: New Aspirin 325 mg PO BID #60 tab HYDROcodone/APAP 5-325MG [[place] 5-325] 1 - 2 tab PO Q6HR PRN #48 tab PRN Reason: Pain Sennosides [Senokot] 2 tab PO DAILY PRN #60 tablet PRN Reason: Constipation No Action Pantoprazole Sodium [Protonix] 40 mg PO QAM Losartan-Hctz 50-12.5 mg [Hyzaar 50-12.5] 2 tab PO QAM cycloSPORINE 0.05% OPHTH SOLN [Restasis] 1 drop BOTH EYES BID Biotin 5 mg PO DAILY Multivitamins, Thera [Multivitamin (formulary)] 1 tab PO DAILY [place]-3 Fatty Acids [[place]-3] 1,000 mg PO DAILY Oxybutynin Chloride 5 mg PO QAM Glucosamine/Chondr Epps A Sod [Osteo Bi-Flex Caplet] 1 each PO DAILY Pravastatin Sodium [Pravachol] 40 mg PO DAILY Melatonin (Unknown Dose) 1 tab PO HS amLODIPine [Norvasc] 7.5 mg PO QAM Latanoprostene Bunod [Vyzulta] 1 drop RIGHT EYE HS Discharge Medication List Losartan-Hctz 50-12.5 mg [Hyzaar 50-12.5] 2 tab PO QAM 01/26/14 [History] Pantoprazole Sodium [Protonix] 40 mg PO QAM 01/26/14 [History] cycloSPORINE 0.05% OPHTH SOLN [Restasis] 1 drop BOTH EYES BID 01/14/16 [History] Biotin 5 mg PO DAILY 12/16/16 [History] Multivitamins, Thera [Multivitamin (formulary)] 1 tab PO DAILY 06/06/18 [History] [place]-3 Fatty Acids [[place]-3] 1,000 mg PO DAILY 06/06/18 [History] Glucosamine/Chondr Epps A Sod [Osteo Bi-Flex Caplet] 1 each PO DAILY 01/22/20 [History] Latanoprostene Bunod [Vyzulta] 1 drop RIGHT EYE HS 01/22/20 [History] Melatonin (Unknown Dose) 1 tab PO HS 01/22/20 [History] Oxybutynin Chloride 5 mg PO QAM 01/22/20 [History] Pravastatin Sodium [Pravachol] 40 mg PO DAILY 01/22/20 [History] amLODIPine [Norvasc] 7.5 mg PO QAM 01/22/20 [History] Aspirin 325 mg PO BID #60 tab 01/29/20 [Rx] HYDROcodone/APAP 5-325MG [[place] 5-325] 1 - 2 tab PO Q6HR PRN #48 tab 01/29/20 [Rx] Sennosides [Senokot] 2 tab PO DAILY PRN #60 tablet 01/29/20 [Rx] Follow up Appointment(s)/Referral(s): Hermelindo Talamantes DO [Doctor of Osteopathic Medicine] - 2 Weeks Activity/Diet/Wound Care/Special Instructions: Weightbearing as tolerated with walker. Leave dressing intact. Dressing may be removed by home care nurse or by patient in 10 days. May shower with dressing on. Recommend use of compression stockings daily until follow up to help prevent swelling and blood clots. May remove at night before sleeping. Please follow-up with [facility] in 2 weeks and call with any questions or concerns, . Discharge Disposition: HOME WITH HOME HEALTH SERVICES
[2020-01-29 08:26] LABS: Basophils % (A) 0 %; Eosinophils % (A) 0 %; HCT 30.4 % (34.0-46.0); Lymphocytes # (A) 0.5 k/uL (1.0-4.8); Lymphocytes % (A) 3 %; MCH 29.8 pg (25.0-35.0); MCHC 32.5 g/dL (31.0-37.0); MCV 91.8 fL (80.0-100.0); Mean Platelet Volume 6.7; Monocytes # (A) 0.4 k/uL (0-1.0); Monocytes % (A) 3 %; Neutrophils # (A) 13.5 k/uL (1.3-7.7); Neutrophils % (A) 93 %; Platelet Count 203 k/uL (150-450); RBC 3.32 m/uL (3.80-5.40); RDW 13.3 % (11.5-15.5); WBC 14.4 k/uL (3.8-10.6)
[2020-01-29 08:29] VITALS: BP 111/73; TEMP 97.9
[2020-01-29 08:43] LABS: HGB 9.9 gm/dL (11.4-16.0)
[2020-01-29] MEDS ORDERED: MELOXICAM 7.5 MG TAB PO SCH (09:00)
[2020-01-29] MEDS ORDERED: PANTOPRAZOLE 40 MG TABLET PO SCH (09:00)
[2020-01-29] MEDS ORDERED: OXYBUTYNIN CHLORIDE 5 MG TAB PO SCH (09:00)
[2020-01-29] MEDS ORDERED: PRAVASTATIN SODIUM 40 MG TAB PO SCH (09:00)
== END 2020-01-29 12:19 | disposition home health service (06) ==
LOC: OR 08:02 → 4SSUR 14:56 → OR 01-29 12:19
PROVIDERS: ATTEND Orthopaedic Surgery
DX: M16.11 Unilateral primary osteoarthritis, right hip (principal); M25.751 Osteophyte, right hip; I10 Essential (primary) hypertension; I95.9 Hypotension, unspecified; H40.9 Unspecified glaucoma; E78.5 Hyperlipidemia, unspecified; M48.00 Spinal stenosis, site unspecified; K21.9 Gastro-esophageal reflux disease without esophagitis; E66.9 Obesity, unspecified; Z68.31 Body mass index [BMI] 31.0-31.9, adult; Z88.1 Allergy status to other antibiotic agents; Z88.8 Allergy status to other drugs, medicaments and biological substances; Z91.030 Bee allergy status; Z79.899 Other long term (current) drug therapy; Z97.3 Presence of spectacles and contact lenses; Z98.890 Other specified postprocedural states; Z87.39 Personal history of other diseases of the musculoskeletal system and connective tissue; Z87.891 Personal history of nicotine dependence; Z98.41 Cataract extraction status, right eye; Z98.42 Cataract extraction status, left eye; Z87.81 Personal history of (healed) traumatic fracture; Z82.49 Family history of ischemic heart disease and other diseases of the circulatory system; Z83.2 Family history of diseases of the blood and blood-forming organs and certain disorders involving the immune mechanism; Z84.89 Family history of other specified conditions; Z80.1 Family history of malignant neoplasm of trachea, bronchus and lung; Z80.41 Family history of malignant neoplasm of ovary
CPT/HCPCS: 27130; 97110; 97161; 97165; 86891; 85025; 88300; 73501; C1776; J0171; J1100; J0690 ×2; J2405; J1885; J2795; J0735; J1170; 86850; 86900; 86901

== ENCOUNTER → 2020-05-06 | Outpatient (CLI) | payer MEDICARE ==
--- NOTE | 2020-05-07 10:40 | MM ---
Reason for exam: screening (asymptomatic). Last mammogram was performed 1 year and 1 month ago. History: Patient is postmenopausal and is nulliparous. Benign US left guided VAD of the left breast, March 16, 2011. Benign cyst aspiration of the left breast. Benign cyst aspiration of the right breast. Took estrogen for 11 years beginning at age 51. Took progesterone for 11 years beginning at age 51. Physical Findings: A clinical breast exam by your physician is recommended on an annual basis and results should be correlated with mammographic findings. MG 3D Screening Mammo W/Cad Bilateral CC and MLO view(s) were taken. Prior study comparison: April 12, 2019, bilateral MG 3d screening mammo w/cad. December 27, 2017, bilateral MG 3d screening mammo w/cad. The breast tissue is heterogeneously dense. This may lower the sensitivity of mammography. No significant changes when compared with prior studies. ASSESSMENT: Benign, BI-RAD 2 RECOMMENDATION: Routine screening mammogram of both breasts in 1 year.
== END | disposition home or self-care (01) ==
LOC: RADMAMWWP 14:23
PROVIDERS: ATTEND Internal Medicine
DX: Z12.31 Encounter for screening mammogram for malignant neoplasm of breast (principal)
CPT/HCPCS: 77063; 77067

== ENCOUNTER → 2020-08-25 | Outpatient (CLI) | payer MEDICARE ==
--- NOTE | 2020-08-25 15:07 | BD ---
EXAMINATION TYPE: Axial Bone Density DATE OF EXAM: 08/25/2020 COMPARISON: DEXA bone scan report 2007 CLINICAL HISTORY: Postmenopausal female Height: 5 FT 3 IN Weight: 171 FRAX RISK QUESTIONS: Alcohol (3 or more units per day): NO Family History (Parent hip fracture): NO Glucocorticoids (More than 3mos): NO (Ex: prednisone, prednisolone, methylprednisolone, dexamethasone, and hydrocortisone). History of Fracture in Adulthood: YES Secondary Osteoporosis: 1. Type 1 Diabetes: NO 2. Hyperthyroidism: NO 3. Menopause before 45: NO 4. Malnutrition: NO 5. Chronic liver disease: NO Rheumatoid Arthritis: NO Current Tobacco Use: NO RISK FACTORS HISTORY OF: Surgery to Spine/Hip(right/left)/Wrist (right/left): RT HIP REPLACEMENT When: 2019 Family History of Osteoporosis: NO Active: YES Diet low in dairy products/other sources of calcium: NO Postmenopausal woman: AROUND AGE 45 Take estrogen and/or progesterone medications: TOOK HRT FOR APPROX 4-5 YEARS DOES NOT TAKE NOW Lost more than 2 inches in height since high school: NO MEDICATIONS: Additional Medications: LOSARTAN, AMLODIPINE, PROTONIX, PREVA STATIN, OXY BUTIN, RESTASIS, EYE DROPS FOR GLAUCOMA Additional History: EXAM MEASUREMENTS: Bone mineral densitometry was performed using the [employer] System. Bone mineral density as measured about the Lumbar spine is: ----- L1-L4(G/cm2): 1.243 T Score Values are as follows: ----- L2: -0.6 ----- L3: 0.5 ----- L4: 1.2 ----- L1-L4: 0.5 Bone mineral density has: INCREASED 0.6 % since study of: 2007 Bone mineral density about the L hip (g/cm2): 0.939 T Score values are as follows: -----L Neck: -0.8 -----L Total: -0.5 Bone mineral density has: DECREASED -10.5 % since study of: 2007 IMPRESSION: Normal (Values between +1 and -1 indicate normal bone mass). Consider repeating this study in 5 year s or sooner if there is some new clinical indication. NOTE: T-SCORE=SD OF THE YOUNG ADULT MEAN.
== END ==
LOC: RADBDWWP 13:11
PROVIDERS: ATTEND Internal Medicine
DX: Z78.0 Asymptomatic menopausal state (principal)
CPT/HCPCS: 77080

== ENCOUNTER → 2021-05-21 | Outpatient (CLI) | payer MEDICARE ==
--- NOTE | 2021-05-24 11:31 | MM ---
Reason for exam: screening (asymptomatic). Last mammogram was performed 1 year ago. History: Patient is postmenopausal and is nulliparous. Benign US left guided VAD of the left breast, March 16, 2011. Benign cyst aspiration of the left breast. Benign cyst aspiration of the right breast. Took estrogen for 11 years beginning at age 51. Took progesterone for 11 years beginning at age 51. Physical Findings: A clinical breast exam by your physician is recommended on an annual basis and results should be correlated with mammographic findings. MG 3D Screening Mammo W/Cad Bilateral CC and MLO view(s) were taken. Prior study comparison: May 06, 2020, bilateral MG 3d screening mammo w/cad. April 12, 2019, bilateral MG 3d screening mammo w/cad. The breast tissue is heterogeneously dense. This may lower the sensitivity of mammography. Stable benign calcifications. Previous mammotome biopsy in the left breast. No significant changes when compared with prior studies. ASSESSMENT: Benign, BI-RAD 2 RECOMMENDATION: Routine screening mammogram of both breasts in 1 year.
== END | disposition home or self-care (01) ==
LOC: RADMAMWWP 09:48
PROVIDERS: ATTEND Internal Medicine
DX: Z12.31 Encounter for screening mammogram for malignant neoplasm of breast (principal); Z78.0 Asymptomatic menopausal state
CPT/HCPCS: 77063; 77067

== ENCOUNTER → 2022-01-06 | Outpatient (CLI) | payer MEDICARE ==
[2022-01-06 09:52] LABS: INR 0.9 (<1.2); Prothrombin Time 9.9 sec (9.0-12.0)
[2022-01-06 14:29] LABS: African American GFR (CKD) 60.4 (60.0-200.0); Albumin 4.3 g/dL (3.8-4.9); Albumin/Globulin Ratio 1.78 (1.60-3.17); Anion Gap 11.7 mmol/L (10.00-18.00); BUN/Creat Ratio 22.6 Ratio (12.00-20.00); Blood Urea Nitrogen 23.5 mg/dL (9.0-27.0); Calcium 10.3 mg/dL (8.7-10.3); Globulin 2.4 g/dL (1.6-3.3); Non-African American GFR(CKD) 52.2 (60.0-200.0); Total Bilirubin 0.3 mg/dL (0.30-1.20); Total Protein 6.7 g/dL (6.2-8.2)
[2022-01-06 15:46] LABS: Appearance,Urine Clear (Clear); Bilirubin,Urine Negative (Negative); Blood,Urine Negative (Negative); Color,Urine Yellow (Yellow); Ketones,Urine Negative (Negative); Nitrite,Urine Negative (Negative); PH, Urine 7.5 (5.0-8.0); Specific Gravity,Urine 1.014 (1.001-1.030); Urobilinogen,Urine 0.2 (0.2,1.0)
[2022-01-06 16:29] LABS: HCT 40.8 % (37.2-46.3); HGB 12.7 g/dL (12.0-15.0); MCH 29.8 pg (27.0-32.0); MCHC 31.1 g/dL (32.0-37.0); MCV 95.8 fL (80.0-97.0); Mean Platelet Volume 9.5 fL (9.5-12.2); NRBC Per 100 WBC 0 /100 WBCS (0.0-0.0); Platelet Count 207 X 10*3/uL (140-440); RBC 4.26 X 10*6/uL (4.10-5.20); RDW 14.4 % (11.5-14.5); WBC 7.23 X 10*3/uL (4.50-10.00)
== END | disposition home or self-care (01) ==
LOC: LABPAT 08:41
PROVIDERS: ATTEND Orthopaedic Surgery
DX: Z01.812 Encounter for preprocedural laboratory examination (principal)
CPT/HCPCS: 36415; 80053; 81003; 85027; 85610; 85730; 87070

== ENCOUNTER 2022-01-18 07:47 | Day surgery (SDC) | payer MEDICARE ==
[~2022-01-18 07:47] MED LIST changes: -ACETAMINOPHEN TAB 500 MG TAB PO ONE; +ACETAMINOPHEN TAB 500 MG TAB PO PRN; -DEXAMETHASONE SOD PHOSPHATE 10 MG/ML 1 ML VIAL IV ONE; +DEXAMETHASONE SOD PHOSPHATE 4 MG/ML 1 ML VIAL IV ONE; -GABAPENTIN 300 MG CAP PO ONE; +GABAPENTIN 300 MG CAP PO PRN; -HYDROmorphone 0.5 MG/0.5 ML SYRINGE IVP PRN; -MELOXICAM 7.5 MG TAB PO ONE; +MELOXICAM 7.5 MG TAB PO PRN; +ONDANSETRON 4 MG/2 ML VIAL IVP ONE; -TRANEXAMIC ACID 1,000 MG in SODIUM CHLORIDE 0.9% 100 ML IVPB ONE; +TRANEXAMIC ACID IN NACL,ISO-OS 1,000 MG in SALINE 1 100ML.BAG IVPB PRN; -fentaNYL (PF) 50 MCG/ML 2 ML AMP IVP PRN
[2022-01-18] MEDS: LACTATED RINGERS 1,000 ML IV SCH (08:36)
[2022-01-18 08:43] LABS: Glucose,Whole Blood 94 mg/dL (70-110)
[2022-01-18] MEDS ORDERED: ceFAZolin 1,000 MG in SODIUM CHLORIDE 0.9% 1,000 ML IRRIGATION ONE (08:54)
[2022-01-18] MEDS ORDERED: ROPIVACAINE 5 MG/ML 30 ML VIAL MISCELLANE ONE ×3 (09:28→10:00)
--- NOTE | 2022-01-18 10:05 | P.OP ---
Date of Procedure: 01/18/22 Preoperative Diagnosis: Severe osteoarthritis left hip Postoperative Diagnosis: Severe osteoarthritis left hip Procedure(s) Performed: Left total hip arthroplasty a direct anterior approach Implants: [employer] Polarstem standard size 3 [employer] R3, 3 hole hemispherical acetabular shell, 52 mm [employer] Reflection 6.5 mm cancellus screw, 20 mm 2 [employer] R3, XLPE 20 acetabular liner [employer]hew Oxinium femoral head 36 m, +4 All components were press-fit. The articulation is Oxinium on polyethylene. Anesthesia: spinal Surgeon: Hermelindo Talamantes Visual Communications Instructor #1: Darnell Lassiter Estimated Blood Loss (ml): 200 Pathology: other (Femoral head) Condition: stable Disposition: PACU Indications for Procedure: After failure of conservative treatment we discussed the surgical and nonsurgical treatment options at length. Patient wishes to proceed with a total hip arthroplasty with a direct anterior approach. Complications specific to this procedure were discussed at length, including but not limited to infection, leg length discrepancy, dislocation, nerve injury, and fracture. Covid-19 was also discussed at length with the patient, and they are aware of the current policies and procedures. The patient was given the option of delaying surgery, but they elect to proceed knowing these risks. Patient is aware of all these complications and informed consent was obtained Operative Findings: The operative findings are consistent with severe osteoarthritis of the left hip Description of Procedure: Patient was seen and evaluated in the preoperative area and the consent was reviewed. The operative site was marked with a skin marker. The patient was then brought to the operating room and given preoperative antibiotics intrave nously. 1 g of Tranexamic acid was also given intravenously. A spinal anesthetic was administered by the anesthesia department. The patient was then placed on the [place] table with the bony prominences well-padded. The hip area was then prepped with a ChloraPrep solution and draped in the usual sterile fashion. A universal timeout was then performed, which confirmed the patient's name, surgical site, ALLERGIES, and procedure being performed on the consent. Next the incision site was located at 1 cm distal and 2 cm lateral to the anterior superior iliac spine. The skin and subcutaneous tissues were sharply incised. Incision was carefully dissected down to the fascia overlying the tensor fascia palak muscle. This fascia was then incised in line with the incision. Care was taken to stay laterally in order to avoid injuring the lateral femoral cutaneous nerve. Next, using blunt finger dissection, the tensor fascia palak muscle was dissected off its investing fascia. The muscle was then carefully retracted laterally with a cobra retractor over the lateral neck of the femur. Next, the circumflex vessels were identified and cauterized using the AquaMantis device. The anterior hip capsule was then exposed. The capsule was then opened and an inverted T fashion. Cobra retractors were then placed intracapsularly. The retractors were maintained intracapsular throughout the procedure. The proximal femur was then visualized. Fluoroscopic x-rays were then taken in order to evaluate the preoperative leg lengths. A small amount of traction was placed on the leg. The femoral neck was then osteotomized at the appropriate level above the lesser trochanter. A small wedge of bone was then removed from the remaining femoral head. Next, using a corkscrew the femoral head was removed from the acetabulum. On gross visual inspection, the femoral head had complete loss of articular cartilage and multiple periarticular osteophytes. The femoral head was then measured. Attention was then turned to the acetabulum. The acetabulum was exposed and any remaining labrum was excised. Sequential reaming of the acetabulum was performed using fluoroscopic guidance until there was a good bed of bleeding cancellus bone. When the appropriate size was reached, a trial was then placed. The position and fit of the trial was checked with fluoroscopy. The trial was then removed. Then, using fluoroscopic guidance, the final implant was impacted at 20 of anteversion and 40 of abduction, and fully seated in the acetabulum. 2 screws were then placed in the acetabulum. Again fluoroscopy was used to check position of the screws. Next, the liner was then impacted, with a 20 elevated liner located in the anterior superior quadrant. Component locking was confirmed. Attention was then directed to the femur. With the aid of the [place] table, the femur was externally rotated to approximately 130, extended, and adducted under the opposite leg. A side hook was then placed under the proximal femur, and the side hook elevator was used to elevate the proximal femur while releasing the capsule. Retractors were then placed. A capsular release was performed, as well as a release of the conjoined tendon, which afforded excellent visualization of the proximal femur. Next, a box osteotome was used to lateralize the proximal femur. A mill hand plate mill was then used to locate the femoral canal. Sequential broaching was then performed with appropriate size which afforded excellent fixation in the proximal femur. A trial was then placed with appropriate head and neck, and the hip was gently reduced with the aid of the [place] table. Fluoroscopy was then used to check position of the components, as well as to ensure equal leg lengths. The hip was then gently dislocated and the trials were then removed. Final implants were then impacted and the hip was again reduced. Final fluoroscopic x-rays confirmed that the components were in anatomic position, as well as equal leg lengths. The hip was also taken through range of motion, and found to be stable. The hip was then copiously irrigated with antibiotic solution with pulsatile lavage. The hip was then irrigated with Irrisept solution. The soft tissues were then injected with a ropivacaine solution. A second dose of 1 g of Tranexamic acid was also given intravenously. The fascia was then closed with 2-0 strata fix suture. The subcutaneous tissue was closed with 3-0 Vicryl. The subcuticular tissue was closed with 3-0 strata fix suture. The skin was then closed with Exofin skin glue. After the glue and dried, and Optifoam silver impregnated dressing was applied. The patient was then transferred to the recovery room in stable condition. The clinical services assistant BRENDA Treviño was required due to the complexity of surgery, and the need for skilled registered nurse surgical services for positioning, draping, exposure, retraction, and closure of the wound.
--- NOTE | 2022-01-18 10:16 | XR ---
Fluoroscopy INDICATION: Pain FINDINGS: Fluoroscopy time: 2 seconds. Images obtained: 2. IMPRESSIONS: 1. Documentation of fluoroscopy.
--- NOTE | 2022-01-18 10:25 | FL ---
Fluoroscopy HISTORY: Hip replacement 53 seconds fluoroscopy time supplied to the referring clinician. 2 intraoperative C-arm images docum ent the procedure. See dictated report from orthopedic surgery.
[2022-01-18] MEDS: HYDROmorphone 0.5 MG/0.5 ML SYRINGE IVP PRN ×2 (10:40→10:52)
[2022-01-18] MEDS ORDERED: traMADol 50 MG TAB PO PRN (10:46)
[2022-01-18] MEDS ORDERED: diazePAM 5 MG TAB PO PRN (10:46)
[2022-01-18] MEDS ORDERED: MAGNESIUM HYDROXIDE 2,400 MG/10 ML CUP PO PRN (10:46)
[2022-01-18] MEDS ORDERED: HYDROmorphone 0.5 MG/0.5 ML SYRINGE IVP PRN ×3 (10:46)
[2022-01-18] MEDS ORDERED: HYDROcodone/APAP 10-325MG 1 EACH TAB PO PRN (10:46)
[2022-01-18] MEDS ORDERED: ACETAMINOPHEN TAB 325 MG TAB PO PRN (10:46)
[2022-01-18] MEDS ORDERED: ONDANSETRON 4 MG/2 ML VIAL IVP PRN (10:46)
[2022-01-18] MEDS ORDERED: NALOXONE 0.4 MG/ML 1 ML VIAL IV PRN (10:46)
--- NOTE | 2022-01-18 11:34 | XR ---
EXAMINATION TYPE: XR Hip Limited LT DATE OF EXAM: 01/18/2022 10:54 AM INDICATION: Patient age:Female; 76 years old; Reason for study: SURGERY COMPLETE. COMPARISON: Fluoroscopic images from same day. TECHNIQUE: The left hip was examined in the frontal projections FINDINGS: Total hip arthroplasty changes with hardware intact. There is appropriate alignment. No nilda dence of any acute osseous pathology, joint dislocation, or soft tissue swelling. Degenerating calcif ied fibroid projecting over the pelvis. IMPRESSION: Total left hip arthroplasty with hardware intact and appropriate alignment, no evidence of fracture.
[2022-01-18] MEDS ORDERED: LACTATED RINGERS 1,000 ML IV ONE (12:30)
[2022-01-18] MEDS: MULTIVITAMINS, THERA 1 EACH TAB PO SCH (14:15)
[2022-01-18] MEDS: PANTOPRAZOLE 40 MG TABLET PO SCH (19:23)
[2022-01-18] MEDS: cycloSPORINE 0.05% OPHTH 0.4 ML DROPERETTE BOTH EYES SCH (20:16)
[2022-01-18] MEDS: ASPIRIN 81 MG PO SCH (20:16)
[2022-01-18] MEDS ORDERED: MELATONIN 5 MG TABLET PO SCH (21:00)
[2022-01-18] MEDS ORDERED: ACETAMINOPHEN TAB 500 MG TAB PO SCH (21:00)
[2022-01-18] MEDS ORDERED: diphenhydrAMINE 25 MG CAP PO SCH (21:00)
[2022-01-18] MEDS ORDERED: SENNOSIDES-DOCUSATE SODIUM 1 EACH TAB PO SCH (21:00)
[2022-01-18] MEDS ORDERED: LATANOPROSTENE BUNOD RIGHT EYE SCH (21:00)
--- NOTE | 2022-01-19 00:13 | CONS ---
CONSULTATION REASON FOR CONSULTATION: Hypertension and hyperlipidemia, requested by Orthopedic Surgery. HISTORY OF PRESENT ILLNESS: This is a 76-year-old woman with a past medical history of hypertension, hyperlipidemia, and multiple medical issues, underwent left hip arthroplasty. The patient complains of nausea. There is no history of fever, rigors, chest pain, or palpitations at this time. PAST MEDICAL HISTORY: Reviewed and include hypertension and hyperlipidemia. HOME MEDICATIONS: Reviewed and include melatonin. Dose and rest of the medications noted. ALLERGIES: Reviewed and include honey bee venom. FAMILY HISTORY: History of lung cancer. SOCIAL HISTORY: Previous history of smoking. REVIEW OF SYSTEMS: Fourteen-point review of systems negative except as mentioned earlier. PHYSICAL EXAMINATION: VITAL SIGNS: Pulse is 61, blood pressure ntd, respirations 16. HEENT: Conjunctivae normal. NECK: No jugular venous distention. No carotid bruit. CARDIOVASCULAR: S1 and S2 muffled. RESPIRATION: Breath sounds diminished at the bases. No rhonchi. No crackles. ABDOMEN: Soft. EXTREMITIES: Status post hip arthroplasty. NERVOUS SYSTEM: No focal deficit. SKIN: No ulcer, LABORATORY DATA: Preop labs are reviewed. ASSESSMENT: 1. Status post left hip arthroplasty. 2. Postoperative nausea. 3. Hypertension. 4. Hyperlipidemia. 5. Multiple medical issues. RECOMMENDATIONS AND DISCUSSION: In this 76-year-old woman, who presented with multiple complex medical issues, we will monitor the patient closely. We will resume the home medications and symptomatic treatment for the nausea. Otherwise, DVT prophylaxis. We will closely follow. The patient was asked to follow up with primary physician after discharge. MMODL / PETEN: [id number] / LINA
[2022-01-19] MEDS: HYDROcodone/APAP 5-325MG 1 EACH TAB PO PRN ×3 (00:23→13:09)
[2022-01-19] MEDS: LACTATED RINGERS 1,000 ML IV SCH (07:42)
[2022-01-19] MEDS: MULTIVITAMINS, THERA 1 EACH TAB PO SCH (07:52)
[2022-01-19] MEDS: ASPIRIN 81 MG PO SCH (07:52)
[2022-01-19] MEDS: cycloSPORINE 0.05% OPHTH 0.4 ML DROPERETTE BOTH EYES SCH (07:53)
[2022-01-19] MEDS: PANTOPRAZOLE 40 MG TABLET PO SCH (07:53)
[2022-01-19] MEDS ORDERED: amLODIPine 5 MG TAB PO SCH (09:00)
[2022-01-19] MEDS ORDERED: VALSARTAN 160 MG TAB PO SCH (09:00)
[2022-01-19] MEDS ORDERED: hydroCHLOROthiazide 25 MG TAB PO SCH (09:00)
[2022-01-19] MEDS ORDERED: PANTOPRAZOLE 40 MG TABLET PO SCH (09:00)
[2022-01-19] MEDS ORDERED: PRAVASTATIN SODIUM 80 MG TAB PO SCH (09:00)
[2022-01-19 10:28] LABS: Basophils # (A) 0.01 X 10*3/uL (0.00-0.10); Basophils % (A) 0.1 %; Eosinophils # (A) 0 X 10*3/uL (0.04-0.35); Eosinophils % (A) 0 %; HCT 34.1 % (37.2-46.3); HGB 10.9 g/dL (12.0-15.0); Immature Grans, Automated 0.5 %; Lymphocytes # (A) 0.48 X 10*3/uL (0.90-5.00); Lymphocytes % (A) 4.3 %; MCH 29.5 pg (27.0-32.0); MCV 92.4 fL (80.0-97.0); Mean Platelet Volume 9.2 fL (9.5-12.2); Monocytes # (A) 1.08 X 10*3/uL (0.20-1.00); Monocytes % (A) 9.7 %; NRBC Per 100 WBC 0 /100 WBCS (0.0-0.0); Neutrophils # (A) 9.48 X 10*3/uL (1.80-7.70); Neutrophils % (A) 85.4 %; Platelet Count 192 X 10*3/uL (140-440); RBC 3.69 X 10*6/uL (4.10-5.20); RDW 13.9 % (11.5-14.5); WBC 11.11 X 10*3/uL (4.50-10.00)
[2022-01-19 10:40] LABS: Anion Gap 10.6 mmol/L (10.00-18.00); BUN/Creat Ratio 21.98 Ratio (12.00-20.00); Calcium 8.6 mg/dL (8.7-10.3); Carbon Dioxide 26.1 mmol/L (20.0-27.5); Non-African American GFR(CKD) 61.3 (60.0-200.0); Potassium 3.9 mmol/L (3.5-5.5)
--- NOTE | 2022-01-19 11:51 | P.DS ---
Providers Expected date of discharge: 01/19/22 Attending physician: Hermelindo Talamantes Consults: 01/18/22 10:46 Consult Physician Routine Consulting Provider: Grace Alicia Consult Reason/Comments: post op medical management Do you want consulting provider notified?: Yes Primary care physician: Roz Velazquez - Discharge Diagnosis(es) (1) S/P total left hip arthroplasty Patient was admitted to the OR on 01/18/22 to undergo a left total hip arthroplasty. SHe had failed conservative measures as an outpatient and desired to proceed with elective surgery after given informed consent. She underwent the above procedure which she tolerated well without complication. Postoperative hospital course has remained without complication. On day of discharge she is afebrile, vital signs stable, labs within acceptable ranges, tolerating by mouth meds and diet, voiding without difficulty, positive flatus, denies abdominal pain or calf pain, pain is controlled on oral pain medication and has no new complaints. Wound is benign, neurovascular status is intact, calf is soft and nontender, abdomen soft and nontender. Review of systems is negative for numbness, tingling, fever, chills, chest pain, shortness of breath, nausea, vomiting, dizziness, headaches, slurred speech or other. Current Visit: Yes Status: Acute Priority: Medium Procedures: Left BRIAN Patient Condition at Discharge: Good Plan - Discharge Summary Discharge Rx Participant: No New Discharge Prescriptions: New Aspirin [Adult Low Dose Aspirin EC] 81 mg PO BID #60 tab Docusate [Colace] 100 mg PO BID #60 capsule HYDROcodone/APAP 7.5-325MG [Spalding 7.5-325] 1 - 2 each PO Q6HR PRN #42 tab PRN Reason: Pain Ondansetron [Zofran] 4 mg PO Q8HR PRN #21 tab PRN Reason: Nausea No Action Pantoprazole Sodium [Protonix] 40 mg PO QAM cycloSPORINE 0.05% OPHTH SOLN [Restasis] 1 drop BOTH EYES BID Multivitamins, Thera [Multivitamin (formulary)] 1 tab PO DAILY Pravastatin Sodium [Pravachol] 80 mg PO DAILY amLODIPine [Norvasc] 5 mg PO QAM Latanoprostene Bunod [Vyzulta] 1 drop RIGHT EYE HS Valsartan/Hydrochlorothiazide [Valsartan-Hctz 160-25 mg Tab] 1 each PO DAILY Turmeric Root Extract [Turmeric] 500 mg PO DAILY Acetaminophen/Diphenhydramine [Tylenol PM 500-25mg] 2 tab PO HS Melatonin [Melatonin Chew] 7.5 mg PO HS Krill Oil 500 mg PO DAILY Discharge Medication List Pantoprazole Sodium [Protonix] 40 mg PO QAM 01/26/14 [History] cycloSPORINE 0.05% OPHTH SOLN [Restasis] 1 drop BOTH EYES BID 01/14/16 [History] Multivitamins, Thera [Multivitamin (formulary)] 1 tab PO DAILY 06/06/18 [History] Latanoprostene Bunod [Vyzulta] 1 drop RIGHT EYE HS 01/22/20 [History] Pravastatin Sodium [Pravachol] 80 mg PO DAILY 01/22/20 [History] amLODIPine [Norvasc] 5 mg PO QAM 01/22/20 [History] Acetaminophen/Diphenhydramine [Tylenol PM 500-25mg] 2 tab PO HS 01/12/22 [History] Krill Oil 500 mg PO DAILY 01/12/22 [History] Melatonin [Melatonin Chew] 7.5 mg PO HS 01/12/22 [History] Turmeric Root Extract [Turmeric] 500 mg PO DAILY 01/12/22 [History] Valsartan/Hydrochlorothiazide [Valsartan-Hctz 160-25 mg Tab] 1 each PO DAILY 01/12/22 [History] Aspirin [Adult Low Dose Aspirin EC] 81 mg PO BID #60 tab 01/19/22 [Rx] Docusate [Colace] 100 mg PO BID #60 capsule 01/19/22 [Rx] HYDROcodone/APAP 7.5-325MG [Spalding 7.5-325] 1 - 2 each PO Q6HR PRN #42 tab 01/19 [Rx] Ondansetron [Zofran] 4 mg PO Q8HR PRN #21 tab 01/19/22 [Rx] Follow up Appointment(s)/Referral(s): Cecelia Baldwin NPC [Nurse Practitioner] - 02/02/22 2:00 pm [facility], [NON-STAFF] - As Needed Roz Velazquez MD [Primary Care Provider] - 01/24/22 11:40 am Activity/Diet/Wound Care/Special Instructions: Weight bear as tolerated May shower after 3 days if no bleeding Keep wound clean and dry Take meds as directed F/U with Dr. Talamantes in office Discharge Disposition: HOME WITH HOME HEALTH SERVICES
[2022-01-19 13:19] VITALS: BP 108/71; PULSE 73; RESP 17; TEMP 97.9
--- NOTE | 2022-01-19 18:49 | P.PN ---
Subjective Progress Note Date: 01/19/22 This is a pleasant 76-year-old female who was recently admitted under orthopedic services and underwent left hip arthroplasty. Patient is sitting up in the chair and is dressed and ready for discharge. Patient has worked with physical therapy today and reports to doing well. Patient denies any nausea or vomiting this morning with breakfast. Encouraged the patient to increase activity as tolerated and also continue with incentive spirometer use at least 10 times every hour while awake. Home medications have been resumed. Patient is afebrile denies chest pain or shortness of breath. Review of systems: Constitutional: No reports of fatigue, fever, or chills Cardiovascular: No reports of chest pain or palpitations Respiratory: No reports of shortness of breath or cough GI: No reports of nausea, vomiting, or diarrhea, reports passing gas and no bowel movement. : No reports of dysuria or retention Neurovascular: No reports of weakness or numbness All medications have been reviewed PHYSICAL EXAMINATION: GENERAL: The patient is alert and oriented x4, Well developed, well nourished. HEENT: Pupils are round and equally reacting to light. EOMI. no scleral icterus. No conjunctival pallor. Normocephalic, atraumatic. No pharyngeal erythema. No thyromegaly. CARDIOVASCULAR: S1 and S2 muffled PULMONARY: diminished breath sounds bilaterally with no wheezing or rhonchi noted. ABDOMEN: soft. non tender on exam. obese. Normoactive bowel sounds. No palpable organomegaly. Abdominal binder noted MUSCULOSKELETAL: No joint swelling or deformity. EXTREMITIES: No cyanosis, clubbing, or pedal edema. left hip dressing is dry and intact NEUROLOGICAL: Gross neurological examination did not reveal any focal deficits. SKIN: No rashes. Assessment: Status post left hip arthroplasty postoperative nausea hypertension hyperlipidemia multiple medical issues GI prophylaxis DVT prophylaxis Full code Plan: Recommend to continue with current medications and management per orthopedic services. Patient is post op left hip arthroplasty and doing well. Plan is for discharge to home today. Patient with some post op nausea and reports occasional nausea with the pain medication. Encouraged increased activity as tolerated and continued incentive spirometer use while at home. Home medications have been resumed and vitals are stable. Recommend following up with pcp Dr. Velazquez on discharge and patient verbalized understanding. We will continue to follow with orthopedic surgery services during hospitalization. Thank you for this consultation. The impression and plan of care has been dictated by Wendy Bains, nurse practitioner as directed. Dr. Ravin MD I have performed a history and examination and MDM of this patient, discussed the same with the dictator, and agree with the dictator's assessment and plan as written ,documented as a scribe. Based on total visit time, I have performed more than 50% of the visit. Any additional findings or plans will be noted. Objective - Vital Signs Vital signs: Vital Signs Temp 97.8 F 01/19/22 07:11 Pulse 85 01/19/22 07:11 Resp 18 01/19/22 08:30 BP 159/61 01/19/22 07:11 Pulse Ox 97 01/19/22 07:11 FiO2 Intake & Output 01/18/22 01/19/22 01/19/22 18:59 06:59 18:59 Intake Total 1301 590 Output Total 1100 900 Balance 201 590 -900 Weight 73.936 kg Intake: IV 1301 Oral 590 Output: Urine 400 400 Emesis 500 500 Estimated Blood Loss 200 Other: # Voids 1 1 - Labs CBC & Chem 7: 01/19/22 06:36 01/19/22 06:36
== END 2022-01-19 13:47 | disposition home health service (06) ==
LOC: OR 07:47 → 4SSUR 10:35 → OR 01-19 13:47
PROVIDERS: ATTEND Orthopaedic Surgery
DX: M16.12 Unilateral primary osteoarthritis, left hip (principal); R11.0 Nausea; Z98.890 Other specified postprocedural states; I10 Essential (primary) hypertension; E78.5 Hyperlipidemia, unspecified; K21.9 Gastro-esophageal reflux disease without esophagitis; Z88.3 Allergy status to other anti-infective agents; Z88.8 Allergy status to other drugs, medicaments and biological substances; Z91.030 Bee allergy status; Z96.641 Presence of right artificial hip joint; Z79.899 Other long term (current) drug therapy; Z79.82 Long term (current) use of aspirin; Z87.891 Personal history of nicotine dependence; Z80.1 Family history of malignant neoplasm of trachea, bronchus and lung; Z80.41 Family history of malignant neoplasm of ovary; Z82.49 Family history of ischemic heart disease and other diseases of the circulatory system
CPT/HCPCS: 97161; 97165; 86900; 86901; 80048; 84132; 85025; 86850; 88300; 73501; 27130; C1776; J1100; J0690 ×3; J2405; J2795; J1170

== ENCOUNTER → 2022-06-07 | Outpatient (CLI) | payer MEDICARE ==
--- NOTE | 2022-06-08 17:55 | MM ---
Reason for Exam: Screening (asymptomatic). Last screening mammogram was performed 12 month(s) ago. Patient History: Menarche at age 13. Patient has no children. Postmenopausal. Estrogen for 11 years from age 51 until age 62. Progesterone for 11 years from age 51 until age 62. Benign Cyst Aspiration on the right side. Benign Cyst Aspiration on the left side. 03/16/2011, Benign Core Biopsy on the left side. Risk Values: Daria 5 year model risk: 2.3%. NCI Lifetime model risk: 4.7%. Prior Study Comparison: 03/23/2016 Bilateral Screening Mammogram, [facility]. 12/27/2017 Bilateral Screening Mammogram, [facility]. 04/12/2019 Bilateral Screening Mammogram, [facility]. 05/06/2020 Bilateral Screening Mammogram, [facility]. 05/21/2021 Bilateral Screening Mammogram, [facility]. Tissue Density: The breast tissue is heterogeneously dense. This may lower the sensitivity of mammography. Findings: Analyzed By CAD. Pattern is stable. Coarse calcifications within the left breast. A core markers within the anterior left breast. Chronic nodularities in the subareolar left breast. No suspicious groups of microcalcifications, spiculated or lobular masses, architectural distortion or other secondary signs of malignancy are mammographically apparent. Overall Assessment: Benign, BI-RAD 2 Management: Screening Mammogram of both breasts in 1 year. A negative mammogram report should not preclude additional follow up of suspicious palpable abnormalities. Patient should continue monthly self breast exam. A clinical breast exam by your physician is recommended on an annual basis and results should be correlated with mammographic findings. Electronically signed and approved by: Abdullahi Gonzalez D.O. Radiologis
== END | disposition home or self-care (01) ==
LOC: RADMAMWWP 14:00
PROVIDERS: ATTEND Internal Medicine
DX: Z12.31 Encounter for screening mammogram for malignant neoplasm of breast (principal); Z78.0 Asymptomatic menopausal state
CPT/HCPCS: 77063; 77067

== ENCOUNTER → 2022-10-07 | Outpatient (CLI) | payer MEDICARE ==
--- NOTE | 2022-10-10 06:29 | MR ---
EXAMINATION TYPE: MR abdomen wo/w con DATE OF EXAM: 10/07/2022 COMPARISON: None at this institute. HISTORY: Benign neoplasm adrenal gland. CONTRAST: Standard multiplanar, multisequence MRI departmental protocol images were obtained without contrast a nd with 8.5 mL intravenous Gadavist gadolinium contrast. Imaging performed of the abdomen focusing o n the bilateral adrenal glands. FINDINGS: Adrenal glands: Normal or abnormal left adrenal gland not well seen or identified. There is abnormal right adrenal gland with cystic and/or solid component anteriorly and cystic component posteriorly me asuring 3.3 x 2.5 cm. Diffuse signal dropout in the anterior solid component is seen. Postcontrast im ages show no enhancement of the posterior cystic component. There is peripheral rim enhancement with a central vessel in the anterior portion. Other: There are several small to tiny thin-walled cysts scattered throughout the liver. Largest lesi on is a 3.7 x 2.4 cm thin-walled cyst in the left hepatic lobe axial image 46. Lung bases are clear. The spleen and pancreas appear within normal limits. Gallbladder is unremarkabl e. There is occasional thin walled cyst in both kidneys. No hydronephrosis seen bilaterally. No suspicious small or large bowel dilatation. No intra-abdominal ascites. Slight scoliotic curvature . No abnormal enhancement. IMPRESSION: Right adrenal solid and cystic mass strongly favors benign etiology based on MRI imaging characteristics
== END | disposition home or self-care (01) ==
LOC: RADMRIMAIN 13:31
PROVIDERS: ATTEND Internal Medicine
DX: D35.01 Benign neoplasm of right adrenal gland (principal); R94.5 Abnormal results of liver function studies
CPT/HCPCS: 74183; A9585

== ENCOUNTER → 2023-03-22 | Outpatient (CLI) | payer MEDICARE ==
--- NOTE | 2023-03-23 10:13 | MR ---
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 TECHNIQUE: Multiplanar multi-sequence imaging was performed without contrast. Post contrast imaging was performed. Post IV contrast subtraction images were also submitted for review. IV Contrast: 8ml cc Gadavist FINDINGS: LOWER CHEST: No gross irregularity. ABDOMEN Liver: No evidence for hepatic steatosis or cirrhosis. Stable appearing simple appearing liver cyst s ome with thin septation in the left hepatic lobe in totality measuring 2.5 x 2.4 cm. No abnormal post contrast enhancement Gallbladder and Bile ducts: No evidence for ductal dilation, or biliary stricture or evidence of chol edocholithiasis. The gallbladder is within normal limits. Pancreas: No ductal dilation. No evidence for solid mass. Spleen: Normal for size. Adrenal glands: Redemonstration of right adrenal mass with cystic component and solid component. The solid component measuring 2.6 x 1.8 cm which is similar to prior. In the cystic component measuring s imilarly at 3.2 x 2.2 cm. Kidneys: No evidence for obstructive uropathy. No suspicious renal masses. Bilaterally the largest on the right measuring up to 10 mm on the left measuring 10 mm which may actually be a dilated calyx on the left. Stomach and Bowel: No evidence for bowel wall thickening or evidence for obstruction.. Small hiatal hernia. Peritoneum: No evidence of pneumoperitoneum or free fluid. Vasculature: No aortic aneurysm. Musculoskeletal: The osseous structures appear intact. Lymph Nodes: No gross evidence for lymphadenopathy. Abdominal wall: Unremarkable. IMPRESSION: 1. 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 The cystic component may represent sequela prior trauma. 2. Small hiatal hernia. 3. Simple appearing hepatic and right renal cysts.
== END | disposition home or self-care (01) ==
LOC: RADMRIMAIN 07:24
PROVIDERS: ATTEND Internal Medicine
DX: D35.00 Benign neoplasm of unspecified adrenal gland (principal); K44.9 Diaphragmatic hernia without obstruction or gangrene; N28.1 Cyst of kidney, acquired; K76.89 Other specified diseases of liver
CPT/HCPCS: 74183; A9585

== ENCOUNTER → 2023-06-22 | Outpatient (CLI) | payer MEDICARE ==
--- NOTE | 2023-06-22 14:20 | P.SLEEP ---
History of Present Illness DATE: 06/22/2023 CONSULTATION/NEW PATIENT EVALUATION HISTORY OF PRESENT ILLNESS/SLEEP-WAKE EVALUATION: 77-year-old lady had been ev aluated in the sleep center for possible obstructive sleep apnea hypopnea syndrome. SLEEP SCHEDULE: Usually sleep schedule from 10 PM to 6 AM 7 days a week. FALLING ASLEEP: Sometimes patient has difficulties with falling asleep. DURING SLEEP: Patient snores and has episodes of stop breathing during the sleep according to her . Patient wakes up from sleep 3 times with nocturia and dry mouth. Patient sleeps on the side and stomach positions. No history of hypnogogical hallucinations, sleep paralysis, or cataplexy. DURING THE DAY/WAKE STATE: Patient may feel some sleepiness afternoon. [place] sleepiness scale is 6. Patient may take nap at afternoon time. PAST MEDICAL HISTORY: Hypertension, hyperlipidemia, urinary incontinence. PAST SURGICAL HISTORY: Bilateral hip replacement, right foot and right ankle fracture treatment. MEDICATIONS: Pravastatin 40 mg once a day, valsartan/hydrochlorothiazide 160/25 mg once a day, amlodipine 5 mg once a day, pantoprazole 40 mg once a day, oxybutynin 5 mg once a day, B12 and iron supplement. SOCIAL HISTORY: Positive history of smoking for about 30 pack years quit in 2006, alcohol consumption occasional. FAMILY HISTORY: Hypertension, hyperlipidemia, asthma, cancer. REVIEW OF SYSTEMS: Snoring, multiple awakenings from sleep with nocturia. No fevers. No double vision. No recent chest pain. No shortness of breath. No abdominal pain. No bleeding episodes. No blood in urine. No seizure episodes. PHYSICAL EXAMINATION: GENERAL: A pleasant patient without any distress. VITAL SIGNS: BP 135/86, HR 75, RR 16, weight 184.0 pounds, height 5 foot to inches, body mass index 33.6. HEENT: PERRLA, EOMI. Evaluation of oropharynx showed tongue protrudes midline, low position of soft palate Mallampati 34, retrognathia 2 mm. NECK: Supple. No JVD. Thyroid is not palpable. 15-3/4 inches in circumference. LUNGS: Clear to percussion and to auscultation. Good air exchange. No wheezing or rhonchi. HEART: S1, S2 regular. No murmurs, gallops or rubs. ABDOMEN: Soft and nontender. Bowel sounds are present. No organomegaly appreciated. EXTREMITIES: No clubbing or cyanosis. STEWARD/STEWARDESS ROOM: Awake, alert, and oriented x3. Cranial nerves 2 to 7 intact. There is no fasciculation or atrophy noted. No focal deficits observed. ASSESSMENT: 1. Snoring, witnessed episodes of stop breathing during the sleep, low position of soft palate Mallampati 34, retrognathia 2 mm. Obstructive sleep apnea hypopnea syndrome. 2. Mild obesity, BMI 33.6. 3. Hypertension. 4. Hyperlipidemia. 5 history of urinary incontinence. PLAN: 1. Polysomnography for evaluation of patient's breathing during sleep. 2. Following plan after reeding sleep study. 3 No driving if feeling sleepiness . 4. Sleep hygiene with regular sleep time for at least 7.5-8 hours. 5. Watching weight. Thank you very much for referring this patient for consultation. Sincerely, David Purvis MD, PhD, FAASM. Diplomat of [place] [employer], Sleep Medicine Board by [place] [employer] [employer] Repairer of [facility] [place] Past Medical History Past Medical History: Eye Disorder, GERD/Reflux, Hypertension, Musculoskeletal Disorder, Osteoarthritis (OA) Additional Past Medical History / Comment(s): RT EYE glaucoma. SPINAL STENOSIS. REFERRED TO DR MOJICA D/T INCR HTN IN FEW WEEKS, INCREASED DOSE OF RX. History of Any Multi-Drug Resistant Organisms: None Reported Past Surgical History: Orthopedic Surgery Additional Past Surgical History / Comment(s): RIGHT FOOT SURGERY WITH 7 SCREWS, RIGHT ANKLE SURGERY WITH 11 SCREWS AND 3 PLATES, LEFT FOOT BUNION SURGERY. BILATERAL CATARACTS. 06/13/18 LT EYE GONIOTOMY. Past Anesthesia/Blood Transfusion Reactions: No Reported Reaction Additional Past Anesthesia/Blood Transfusion Reaction / Comment(s): "Dad acted unruly coming out of anesthesia." Past Alcohol Use History: None Reported - Past Family History Father Family Medical History: Cancer Additional Family Medical History / Comment(s): LUNG CANCER. Mother Family Medical History: Cancer Additional Family Medical History / Comment(s): OVARIAN CANCER. Medications and Allergies Home Medications Medication Instructions Recorded Confirmed Type Pantoprazole Sodium [Protonix] 40 mg PO QAM 01/26/14 01/12/22 History cycloSPORINE 0.05% OPHTH SOLN 1 drop BOTH EYES BID 01/14/16 01/12/22 History [Restasis] Multivitamins, Thera [Multivitamin 1 tab PO DAILY 06/06/18 01/12/22 History (formulary)] Latanoprostene Bunod [Vyzulta] 1 drop RIGHT EYE HS 01/22/20 01/12/22 History Pravastatin Sodium [Pravachol] 80 mg PO DAILY 01/22/20 01/12/22 History amLODIPine [Norvasc] 5 mg PO QAM 01/22/20 01/12/22 History Acetaminophen/Diphenhydramine 2 tab PO HS 01/12/22 01/12/22 History [Tylenol PM 500-25mg] Krill Oil 500 mg PO DAILY 01/12/22 01/12/22 History Melatonin [Melatonin Chew] 7.5 mg PO HS 01/12/22 01/12/22 History Turmeric Root Extract [Turmeric] 500 mg PO DAILY 01/12/22 01/12/22 History Valsartan/Hydrochlorothiazide 1 each PO DAILY 01/12/22 01/12/22 History [Valsartan-Hctz 160-25 mg Tab] Aspirin [Adult Low Dose Aspirin EC] 81 mg PO BID #60 tab 01/19/22 Rx Docusate [Colace] 100 mg PO BID #60 capsule 01/19/22 Rx HYDROcodone/APAP 7.5-325MG [[place] 1 - 2 each PO Q6HR PRN #42 tab 01/19/22 Rx 7.5-325] Ondansetron [Zofran] 4 mg PO Q8HR PRN #21 tab 01/19/22 Rx Allergies Allergy/AdvReac Type Severity Reaction Status Date / Time venom-honey bee Allergy Severe Anaphylaxis Verified 01/18/22 08:15 [bee venom (honey bee)] neomycin Allergy Mild Rash/Hives Verified 01/18/22 08:15 [From Neosporin ([id number])] polymyxin B Allergy Mild Rash/Hives Verified 01/18/22 08:15 [From Neosporin ([id number])] famotidine [From Pepcid] Allergy Itching Verified 01/18/22 08:15 Sleep Note - Sleep Note Sleep Note: Temperature: Pulse Rate: Respiratory Rate: Blood Pressure: SpO2: Height: Weight: BMI: Neck Circumference:
== END ==
LOC: 3 N SLEEP 13:26
PROVIDERS: ATTEND Internal Medicine
DX: G47.33 Obstructive sleep apnea (adult) (pediatric) (principal); E66.9 Obesity, unspecified; I10 Essential (primary) hypertension; M26.19 Other specified anomalies of jaw-cranial base relationship; E78.5 Hyperlipidemia, unspecified; Z87.448 Personal history of other diseases of urinary system; Z68.33 Body mass index [BMI] 33.0-33.9, adult; Z79.899 Other long term (current) drug therapy; Z87.891 Personal history of nicotine dependence; Z91.030 Bee allergy status; Z88.8 Allergy status to other drugs, medicaments and biological substances; Z88.1 Allergy status to other antibiotic agents; Z79.82 Long term (current) use of aspirin
CPT/HCPCS: 99211

== ENCOUNTER → 2023-06-27 | Outpatient (CLI) | payer MEDICARE ==
--- NOTE | 2023-06-28 15:50 | MM ---
Reason for Exam: Screening (asymptomatic). Last mammogram was performed 1 year(s) and 1 month(s) ago. Patient History: Menarche at age 13. Patient has no children. Postmenopausal. Estrogen for 11 years from age 51 until age 62. Progesterone for 11 years from age 51 until age 62. Benign Cyst Aspiration on the right side. Benign Cyst Aspiration on the left side. 03/16/2011, Benign Core Biopsy on the left side. Risk Values: Daria 5 year model risk: 2.3%. NCI Lifetime model risk: 4.4%. Prior Study Comparison: 05/06/2020 Bilateral Screening Mammogram, [facility]. 05/21/2021 Bilateral Screening Mammogram, [facility]. 06/07/2022 Bilateral MG 3D screening mammo w/cad, [facility]. Tissue Density: There are scattered fibroglandular densities. Findings: Analyzed By CAD. Pattern appears stable. Focal asymmetric density outer right breast was present previously. Coarse calcifications within the left breast. Core markers within the left breast. No suspicious groups of microcalcifications, spiculated or lobular masses, architectural distortion or other secondary signs of malignancy are mammographically apparent. Overall Assessment: Benign, BI-RAD 2 Management: Screening Mammogram of both breasts in 1 year. A negative mammogram report should not preclude additional follow up of suspicious palpable abnormalities. Patient should continue monthly self breast exam. A clinical breast exam by your physician is recommended on an annual basis and results should be correlated with mammographic findings. Electronically signed and approved by: Abdullahi Gonzalez D.O. Radiologis
== END | disposition home or self-care (01) ==
LOC: RADMAMWWP 10:10
PROVIDERS: ATTEND Internal Medicine
DX: Z12.31 Encounter for screening mammogram for malignant neoplasm of breast (principal); Z78.0 Asymptomatic menopausal state
CPT/HCPCS: 77063; 77067

== ENCOUNTER 2023-07-31 19:36 | Outpatient (CLI) | payer MEDICARE ==
--- NOTE | 2023-08-02 13:25 | P.PCN ---
Description of Procedure: POLYSOMNOGRAPHY REPORT PROCEDURE(S)/DATE(S): Polysomnography to 06/07/2024 CLINICAL: Patient has been seen in the sleep center for evaluation of obstructive sleep apnea-hypopnea syndrome. Please see my consultation. Sleep study has been done for evaluation of patient breathing during the sleep. PROCEDURE: The standard montage for clinical polysomnography included the electroencephalogram, the electrooculogram, the mentalis surface electromyography and Lead II cardiography. The respiratory battery consisted of measurements of nasal/buccal air flow, pressure transducer measurements from nose, thoracic and/or abdominal effort and intercostal surface electromyography. Video monitoring has been done to check for any parasomnia events. Nocturnal oxyhemoglobin saturations were obtained by finger oximetry. Step-light titration with positive airway pressure was utilized to control the respiratory events, if necessary. RESULTS: During the diagnostic sleep study sleep efficiency was decreased to 80.5 %. Latency to sleep onset was normal 18.0 min. Sleep architecture showed stage NI was significantly increased to 29.3 %, Delta sleep was absent 0 %, REM sleep was decreased to 14.7 %. Respiratory channel showed 11 obstructive apneas, 1 mixed apneas, 0 central apneas, 200 hypopneas with lowest oxygen level 77%. Total apnea hypopnea index was 37.1. Heart rate was in the range between 65 and 75, average 70. EMG showed 67.5 periodic limb movements per hour with 0.2 micro-arousals per hour. IMPRESSIONS: 1. Severe Obstructive sleep apnea hypopnea syndrome. 2. Severe periodic limb movements have been documented, but without significant amount of related micro-arousals. Please see other impressions from consultation PLAN: 1. The patient will have PAP titration for correction of respiratory abnormalities during the sleep. 2. Losing weight program. 3. Sleep hygiene with regular time in bed for at least 7-1/2 hours. 4. No driving if feeling sleepiness. 5. Please check iron profile including ferritin level. Low level of iron may increase the risk for periodic limb movements. Thank you very much for allowing me to participate in the management of your patient. Sincerely, David Purvis MD, PhD, FAASM. Diplomat of [place] [employer], Sleep Medicine Board by [place] [employer] Rehab Department Manager of [facility] [place]
== END 2023-08-01 06:20 | disposition home or self-care (01) ==
LOC: 3 N SLEEP 19:36
PROVIDERS: ATTEND Internal Medicine
DX: G47.33 Obstructive sleep apnea (adult) (pediatric) (principal); G47.61 Periodic limb movement disorder; Z91.030 Bee allergy status; Z88.1 Allergy status to other antibiotic agents; Z88.8 Allergy status to other drugs, medicaments and biological substances; Z87.891 Personal history of nicotine dependence
CPT/HCPCS: 95810

== ENCOUNTER 2023-08-28 19:35 | Outpatient (CLI) | payer MEDICARE ==
--- NOTE | 2023-08-31 14:26 | P.PCN ---
Description of Procedure: CLINICAL: Titration with positive air pressure has been done for correction of respiratory abnormalities during sleep. DESCRIPTION OF PROCEDURE: The standard montage for clinical polysomnography included the electroencephalogram, the electrocardiogram, the mentalis surface electromyography and Lead II cardiography. The respiratory battery consisted of measurements of nasal /buccal air flow, pressure transducer measurements from the nose, thoracic and /or abdominal effort and intercostal surface electromyography. Video monitoring has been done to check for any parasomnia events. Nocturnal oxyhemoglobin saturations were obtained by finger oximetry. Step-light titration with positive airway pressure was utilized to control respiratory events. Raw data of sleep recording has been reviewed and is adequate. RESULTS: Sleep efficiency was decreased to 79.6%. Latency to sleep onset was normal at 12.5 minutes.]. Sleep architecture showed stage N1 was extremely short 0.8%, Delta sleep was normal 8.3%, REM sleep was increased to 30.3%. Heart rate was minimum 64 BPM, maximum 72 BPM, average 68 BPM. EMG showed 0 periodic limb movements per hour. PAP titration have been done with CPAP up to the pressure 13 cm H2O. The best results were at the pressure 13 cm H2O. Apnea hypopnea index reduced to 0.3. IMPRESSION: 1. Obstructive sleep apnea hypopnea syndrome on controle with PAP treatment. 2. No significant periodic limb movements have been documented. Please see other impressions from consultation. PLAN: 1. The patient will have treatment with positive air pressure equipment with the level of pressure AutoPAP 5-13 cm H2O and should use it every night for the whole night. 2. Watching and losing weight. 3. Sleep hygiene with regular time in bed for at least 8 hours. 4. No driving if feeling any sleepiness. 5. I will see the patient for follow up visit to explain the results of the test, recommendations, check compliance with treatment and make any necessary adjustment related to mask fitting, pressure and humidification. Thank you very much for allowing me to participate in the management of your patient. Sincerely, David Purvis MD, PhD, FAASM Diplomat of [place] [employer] Sleep Medicine Board of [place] Board of Internal Medicine Medical Records Library Professor of [facility] [place]
== END 2023-08-29 06:20 | disposition home or self-care (01) ==
LOC: 3 N SLEEP 19:35
PROVIDERS: ATTEND Internal Medicine
DX: G47.33 Obstructive sleep apnea (adult) (pediatric) (principal)
CPT/HCPCS: 95811

== ENCOUNTER → 2023-09-26 | Outpatient (CLI) | payer MEDICARE ==
--- NOTE | 2023-09-26 12:50 | BD ---
EXAMINATION TYPE: Axial Bone Density DATE OF EXAM: 09/26/2023 CLINICAL HISTORY: 77 years old Female. ICD-10 CODE: N95.8 OTHER SPECIFIED MENOPAUSAL AND PERIMENOPAU SA Height: 62.25 Weight: 179.4 FRAX RISK QUESTIONS: Alcohol (3 or more units per day): no Family History (Parent hip fracture): no Glucocorticoids (More than 3mos): no (Ex: prednisone, prednisolone, methylprednisolone, dexamethasone, and hydrocortisone). History of Fracture in Adulthood: foot, ankle Secondary Osteoporosis: 1. Type 1 Diabetes: no 2. Hyperthyroidism: no 3. Menopause before 45: no 4. Malnutrition: no 5. Chronic liver disease: no Rheumatoid Arthritis: no Current Tobacco Use: no RISK FACTORS HISTORY OF: Hip Fracture (Right/Left): no Spine Fracture: no History of Wrist Fracture: no Surgery to Spine/Hip(right/left)/Wrist (right/left): Bilateral hip replacement When: 2019 and 2021 MEDICATIONS: Thyroid Medications: no Osteoporosis Medications: no EXAM MEASUREMENTS: Bone mineral densitometry was performed using the Qualtr[employer] System. Bone mineral density as measured about the Lumbar spine is: ----- L1-L4(G/cm2): 1.289 T Score Values are as follows: ----- L1: 0.3 ----- L2: -0.4 ----- L3: 0.7 ----- L4: 2.2 ----- L1-L4: 0.9 Z Score Values are as follows: ----- L1: 1.5 ----- L2: 0.8 ----- L3: 1.9 ----- L4: 3.5 ----- L1-L4: 2.0 Bone mineral density has: increased 3.7 % since study of: 08/25/2020 Bone mineral density about the L Wrist (g/cm2): 0.463 T Score values are as follows: -----Dist. R+U: -3.9 -----Prox. R+U: -2.6 -----Radius total: -3.5 Z Score values are as follows: -----Dist. R+U: -1.3 -----Prox. R+U: -0.1 -----Radius total: -1.0 Baseline Study for wrist FRAX%s: The graph provided illustrates a % chance for a major osteoporotic fx and a % chance for the hips probability for fx in 10 years time. No Frax 's given because hips were not scanned due to bilateral hip replacement. IMPRESSION: Osteoporosis (T Score less than -2.5). There is increased fracture risk and therapy is usually indicated based on age. Re-Screen 1-2 years. NOTE: T-SCORE=SD OF THE YOUNG ADULT MEAN.
== END | disposition home or self-care (01) ==
LOC: RADBDWWP 10:41
PROVIDERS: ATTEND Internal Medicine
DX: M81.0 Age-related osteoporosis without current pathological fracture (principal); N95.8 Other specified menopausal and perimenopausal disorders
CPT/HCPCS: 77080

== ENCOUNTER → 2023-10-11 | Outpatient (CLI) | payer MEDICARE ==
[2023-10-12 03:13] LABS: Basophils # (A) 0.05 X 10*3/uL (0.00-0.10); Basophils % (A) 0.5 %; Eosinophils % (A) 1.1 %; HCT 40.2 % (37.2-46.3); HGB 12.8 g/dL (12.0-15.0); Lymphocytes # (A) 1.37 X 10*3/uL (0.90-5.00); MCH 29.5 pg (27.0-32.0); MCHC 31.8 g/dL (32.0-37.0); MCV 92.6 FL (80.0-97.0); Mean Platelet Volume 9.7 FL (9.5-12.2); Monocytes # (A) 0.78 X 10*3/uL (0.20-1.00); Monocytes % (A) 8.5 %; NRBC Per 100 WBC 0 X 10*3/uL (0.00-0.01); Neutrophils # (A) 6.81 X 10*3/uL (1.80-7.70); Neutrophils % (A) 74.5 %; Platelet Count 223 X 10*3/uL (140-440); RBC 4.34 X 10*6/uL (4.10-5.20); WBC 9.15 X 10*3/uL (4.50-10.00)
[2023-10-12 04:38] LABS: Erythrocyte Sedimentation Rate 24 mm/Hr (0-30)
== END | disposition home or self-care (01) ==
LOC: LABWHC1 15:34
PROVIDERS: ATTEND Orthopaedic Surgery
DX: Z09 Encounter for follow-up examination after completed treatment for conditions other than malignant neoplasm (principal); I10 Essential (primary) hypertension; M25.552 Pain in left hip; Z96.642 Presence of left artificial hip joint; M54.59 Other low back pain; M67.854 Other specified disorders of tendon, left hip
CPT/HCPCS: 36415; 85025; 85652; 86140

== ENCOUNTER → 2023-10-25 | Outpatient (CLI) | payer MEDICARE ==
--- NOTE | 2023-10-25 16:30 | CT ---
EXAMINATION TYPE: CT hip LT wo con CT DLP: 632 mGycm, Automated exposure control for dose reduction was used. DATE OF EXAM: 10/25/2023 4:11 PM COMPARISON: . 01/28/2020. 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 3-D reconstruction was created on a separate workstation. Contrast used: mL of , (None if empty) Oral contrast used: (None if empty) FINDINGS: Limited exam secondary to left hip arthroplasty. Left hip arthroplasty hardware appears int act. There is no evidence for a large joint effusion. Partially visualized right hip arthroplasty juan a nges with appropriate positioning. There is no evidence of fracture, subluxation, or dislocation. No significant soft tissue swelling or joint effusion is identified. No focal muscular atrophy or edema is identified. Fibroid uterus with scattered colonic diverticula. IMPRESSION: 1. Left hip arthroplasty changes with hardware in appropriate position. No evidence of fracture. 2. Colonic diverticulosis. 3. Fibroid uterus.
== END | disposition home or self-care (01) ==
LOC: RADCTMAIN 15:13
PROVIDERS: ATTEND Orthopaedic Surgery
DX: Z09 Encounter for follow-up examination after completed treatment for conditions other than malignant neoplasm (principal); D25.9 Leiomyoma of uterus, unspecified; K57.30 Diverticulosis of large intestine without perforation or abscess without bleeding; M67.854 Other specified disorders of tendon, left hip; I10 Essential (primary) hypertension; M54.59 Other low back pain; Z96.642 Presence of left artificial hip joint

== ENCOUNTER → 2023-11-22 | Outpatient (CLI) | payer MEDICARE ==
[2023-11-22 15:41] VITALS: BP 121/75; PULSE 74; RESP 16; TEMP 98
--- NOTE | 2023-11-22 16:37 | P.PROGSL ---
Subjective DATE: 11/22/2023 FOLLOW UP VISIT. Patient with obstructive sleep apnea hypopnea syndrome return to sleep center for follow-up visit. Recently patient had sleep study which documented obstructive sleep apnea hypopnea syndrome. Patient was initiated on PAP therapy and today is first visit after treatment was started. Patient was able to use PAP equipment every night for the whole night. Patient has difficulties because of leak from full facemask. [place] sleepiness scale is 4, which is normal. I checked information from PAP unit. PAP unit pressure 5-14, average 12.0 cm H2O. Usage is 100% for more then 4 hours, average 6.75 hours per night. Leak is 24.0 l/m, which is in acceptable range. Apnea Hypopnea Index is 3.5, which is normal. MEDICATIONS: Please see below During physical exam: GENERAL: A pleasant patient without any distress. VITAL SIGNS: Please see below, weight 177 pounds. HEENT: PERRLA, EOMI.low position of soft palate, Mallapati 34, retrognathia 2 mm. NECK: Supple. No JVD. LUNGS: Clear to percussion and to auscultation. Good air exchange. No wheezing or rhonchi. HEART: S1, S2 regular. ABDOMEN: Soft and nontender. Slightly obese EXTREMITIES: No clubbing or cyanosis. PIECE GOODS CLERK: Awake, alert, and oriented x3. No focal deficit. Impressions: 1. Obstructive sleep apnea-hypopnea syndrome. Patient demonstrated great compliance with treatment, benefiting from treatment. 2. Mild obesity, patient lost 7 pounds comparing with previous visit. 3. Hypertension. 4. Hyperlipidemia. 5. History of urinary incontinence. I changed pressure in CPAP unit to the range 5 to 13 cm of water. I teach the patient how to adjust temperature in humidifier and in the tube. We discussed possibility to try nasal mask including nasal pillow mask with nasal strips and possibly chinstrap if necessary. Plan: 1. Continue using PAP equipment every night for the whole night. 2. To change air filter at least 1-2 times per month. 3. PAP unit should stay lower then position of the head. 4. Advised patient to remove all remaining water from humidifier canister daily and make it dry after each usage. Refill canister with fresh distilled water before each usage. 5. Sleep hygiene with regular time in bed for at least 8 hours. 6. Precautions related to driving. No driving if feel any sleepiness. 7. I will maintain prescription for PAP supplies including mask, tube, filters. 8. Follow up visit in 6 months or earlier if patient has any problems. 9. Watching weight. Thank you very much for allowing me to participate in the management of your patient. David Purvis MD, PhD, FAASM. Diplomat of [place] [employer], Sleep Medicine Board by [place] Board [employer] Medicine Finance Professor of [facility] [place] Objective - Vital Signs Vital Signs: Vital Signs Temp 98 F 11/22/23 15:40 Pulse 74 11/22/23 15:40 Resp 16 11/22/23 15:40 BP 121/75 11/22/23 15:40 Pulse Ox 93 L 11/22/23 15:40 FiO2 Home Medications: Home Medications Medication Instructions Recorded Confirmed Type Pantoprazole Sodium [Protonix] 40 mg PO QAM 01/26/14 01/12/22 History cycloSPORINE 0.05% OPHTH SOLN 1 drop BOTH EYES BID 01/14/16 01/12/22 History [Restasis] Multivitamins, Thera [Multivitamin 1 tab PO DAILY 06/06/18 01/12/22 History (formulary)] Latanoprostene Bunod [Vyzulta] 1 drop RIGHT EYE HS 01/22/20 01/12/22 History Pravastatin Sodium [Pravachol] 80 mg PO DAILY 01/22/20 01/12/22 History amLODIPine [Norvasc] 5 mg PO QAM 01/22/20 01/12/22 History Acetaminophen/Diphenhydramine 2 tab PO HS 01/12/22 01/12/22 History [Tylenol PM 500-25mg] Krill Oil 500 mg PO DAILY 01/12/22 01/12/22 History Melatonin [Melatonin Chew] 7.5 mg PO HS 01/12/22 01/12/22 History Turmeric Root Extract [Turmeric] 500 mg PO DAILY 01/12/22 01/12/22 History Valsartan/Hydrochlorothiazide 1 each PO DAILY 01/12/22 01/12/22 History [Valsartan-Hctz 160-25 mg Tab] Aspirin [Adult Low Dose Aspirin EC] 81 mg PO BID #60 tab 01/19/22 Rx Docusate [Colace] 100 mg PO BID #60 capsule 01/19/22 Rx HYDROcodone/APAP 7.5-325MG [[place] 1 - 2 each PO Q6HR PRN #42 tab 01/19/22 Rx 7.5-325] Ondansetron [Zofran] 4 mg PO Q8HR PRN #21 tab 01/19/22 Rx
== END ==
LOC: 3 N SLEEP 15:32
PROVIDERS: ATTEND Internal Medicine
DX: G47.33 Obstructive sleep apnea (adult) (pediatric) (principal); E66.9 Obesity, unspecified; I10 Essential (primary) hypertension; E78.5 Hyperlipidemia, unspecified; Z99.89 Dependence on other enabling machines and devices; Z87.448 Personal history of other diseases of urinary system; Z91.030 Bee allergy status; Z88.1 Allergy status to other antibiotic agents; Z88.8 Allergy status to other drugs, medicaments and biological substances; Z79.899 Other long term (current) drug therapy; Z87.891 Personal history of nicotine dependence
CPT/HCPCS: 99212

== ENCOUNTER → 2024-04-06 | Outpatient (CLI) | payer MEDICARE ==
--- NOTE | 2024-04-06 15:08 | MR ---
EXAMINATION TYPE: MR abdomen wo/w con DATE OF EXAM: 04/06/2024 2:35 PM CLINICAL INDICATION: Female, 78 years old with history of D35.00 NEOPLASM UNSPECIFIED ADRENAL GLAND; PHH, Benign neoplasm of adrenal gland COMPARISON: 03/22/2023 MRI abdomen TECHNIQUE: Multiplanar multi-sequence imaging was performed without contrast. Post contrast imaging was performed. Post IV contrast subtraction images were also submitted for review. IV Contrast: 7 cc Gadavist FINDINGS: LOWER CHEST: No gross irregularity. ABDOMEN Liver: No evidence for hepatic steatosis or cirrhosis. Scattered high T2 signal cysts are seen throug hout the liver some with thin septations. The largest in the left hepatic lobe with bilobed morpholog y measuring 44 x 30 mm with thin septation possibly 2 adjacent cysts. No suspicious observations with in the liver. Gallbladder and Bile ducts: No evidence for ductal dilation, or biliary stricture or evidence of chol edocholithiasis. The gallbladder is within normal limits. Pancreas: No ductal dilation. No evidence for solid mass. Spleen: Normal for size. Adrenal glands: Right adrenal gland cyst measuring up to 30 mm. Adjacent to this cyst is ar nodule wi th signal dropout on chemical shift out of phase imaging measuring up to 22 mm. No suspicious left ad renal lesions. There is also evidence of signal dropout on the left adrenal gland possibly representi ng underlying adrenal adenoma measuring up to 18 mm. Kidneys: No evidence for obstructive uropathy. No suspicious renal masses. Stomach and Bowel: No evidence for bowel wall thickening or evidence for obstruction. Retroperitoneum/Peritoneum: No evidence of pneumoperitoneum or free fluid. Vasculature: No aortic aneurysm. Musculoskeletal: The osseous structures appear intact. Lymph Nodes: No gross evidence for lymphadenopathy. Abdominal wall: Unremarkable. IMPRESSION: 1. 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 2. Subtle nodularity within the left adrenal gland suggestive of lipid rich adenoma also 3. Scattered simple appearing and slightly complex hepatic cysts. [facility], , 04/06/2024 3:06 PM
== END | disposition home or self-care (01) ==
LOC: RADMRIMAIN 13:23
PROVIDERS: ATTEND Internal Medicine
DX: D35.00 Benign neoplasm of unspecified adrenal gland
CPT/HCPCS: 74183

== ENCOUNTER → 2024-07-03 | Outpatient (CLI) | payer MEDICARE ==
[2024-07-03 16:19] VITALS: BP 134/86; PULSE 70; RESP 16; TEMP 97.7
--- NOTE | 2024-07-03 18:16 | P.PROGSL ---
Subjective DATE: 07/03/2024 FOLLOW UP VISIT. Patient with obstructive sleep apnea hypopnea syndrome return to sleep center for follow-up visit. Information from previous visit have been reviewed. Patient is using PAP equipment every night for the whole night, getting PAP supplies in time. The patient does not have significant problems with the mask, PAP unit and humidification. Vowinckel sleepiness scale is 2, which is normal. I checked information from PAP unit. PAP unit pressure 5-13, average 12.2 cm H2O. Usage is 98% for more then 4 hours, average 6.7 hours per night. Leak is increased to 49 l/m. Apnea Hypopnea Index is 4.4, which is normal. MEDICATIONS have been reviewed, please see below. During physical exam: GENERAL: A pleasant patient without any distress. VITAL SIGNS: Please see below, weight is 161 lbs. HEENT: PERRLA, EOMI.low position of soft palate, Mallapati 34. NECK: Supple. No JVD. LUNGS: Clear to percussion and to auscultation. Good air exchange. No wheezing or rhonchi. HEART: S1, S2 regular. ABDOMEN: Soft and nontender.[] EXTREMITIES: No clubbing or cyanosis. 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 No focal deficit. Impressions: 1. Obstructive sleep apnea-hypopnea syndrome. Patient demonstrated great compliance with treatment, benefiting from treatment. 2. Hypertension. 3. Hyperlipidemia. 4. History of urinary incontinence. 5. Overweight, patient lost 15 pounds comparing with previous visit, BMI 29.4. Plan: 1. Continue using PAP equipment every night for the whole night. 2. Sleep hygiene with regular time in bed for at least 7.5-8 hours 3. PAP unit should stay lower then position of the head. 4. Advised patient to remove all remaining water from humidifier canister daily and make it dry after each usage. Refill canister with fresh distilled water before each usage. 5. Watching weight. 6. Precautions related to driving. No driving if feel any sleepiness. 7. I will maintain prescription for PAP supplies including mask, tube, filters. 8. Follow up visit in 8 months or earlier if patient has any problems. Thank you very much for allowing me to participate in the management of your patient. David Purvis MD, PhD, FAASM. Diplomat of [place] [employer], Sleep Medicine Board by [employer] [facility] [place] Objective - Vital Signs Vital Signs: Vital Signs Temp 97.7 F 07/03/24 16:17 Pulse 70 07/03/24 16:17 Resp 16 07/03/24 16:17 BP 134/86 07/03/24 16:17 Pulse Ox 95 07/03/24 16:17 FiO2 Intake & Output 07/02/24 07/03/24 07/03/24 18:59 06:59 18:59 Weight 73.028 kg Home Medications: Home Medications Medication Instructions Recorded Confirmed Type Pantoprazole Sodium [Protonix] 40 mg PO QAM 01/26/14 07/03/24 History cycloSPORINE 0.05% OPHTH SOLN 1 drop BOTH EYES BID 01/14/16 07/03/24 History [Restasis] Multivitamins, Thera [Multivitamin 1 tab PO DAILY 06/06/18 01/12/22 History (formulary)] Latanoprostene Bunod [Vyzulta] 1 drop RIGHT EYE HS 01/22/20 01/12/22 History Pravastatin Sodium [Pravachol] 80 mg PO DAILY 01/22/20 07/03/24 History amLODIPine [Norvasc] 5 mg PO QAM 01/22/20 07/03/24 History Acetaminophen/Diphenhydramine 2 tab PO HS 01/12/22 01/12/22 History [Tylenol PM 500-25mg] Krill Oil 500 mg PO DAILY 01/12/22 01/12/22 History Melatonin [Melatonin Chew] 7.5 mg PO HS 01/12/22 01/12/22 History Turmeric Root Extract [Turmeric] 500 mg PO DAILY 01/12/22 01/12/22 History Valsartan/Hydrochlorothiazide 1 each PO DAILY 01/12/22 07/03/24 History [Valsartan-Hctz 160-25 mg Tab] Aspirin [Adult Low Dose Aspirin EC] 81 mg PO BID #60 tab 01/19/22 Rx Docusate [Colace] 100 mg PO BID #60 capsule 01/19/22 Rx HYDROcodone/APAP 7.5-325MG [[place] 1 - 2 each PO Q6HR PRN #42 tab 01/19/22 Rx 7.5-325] Ondansetron [Zofran] 4 mg PO Q8HR PRN #21 tab 01/19/22 Rx Alendronate Sodium 70 mg PO WEEKLY 07/03/24 07/03/24 History
== END ==
LOC: 3 N SLEEP 15:12
PROVIDERS: ATTEND Internal Medicine
DX: G47.33 Obstructive sleep apnea (adult) (pediatric) (principal); I10 Essential (primary) hypertension; E78.5 Hyperlipidemia, unspecified; E66.9 Obesity, unspecified; Z68.29 Body mass index [BMI] 29.0-29.9, adult; Z99.89 Dependence on other enabling machines and devices; Z87.448 Personal history of other diseases of urinary system; Z91.030 Bee allergy status; Z88.8 Allergy status to other drugs, medicaments and biological substances; Z87.891 Personal history of nicotine dependence
CPT/HCPCS: 99212

== ENCOUNTER 2024-10-18 08:14 | Day surgery (SDC) | payer MEDICARE ==
[2024-10-16 10:35] VITALS: BMI 31.1
[~2024-10-18 08:14] MED LIST changes: -ACETAMINOPHEN TAB 500 MG TAB PO PRN; -DEXAMETHASONE SOD PHOSPHATE 4 MG/ML 1 ML VIAL IV ONE; -GABAPENTIN 300 MG CAP PO PRN; +HYDROmorphone 0.5 MG/0.5 ML SYRINGE IVP PRN; -MELOXICAM 7.5 MG TAB PO PRN; -MIDAZOLAM 2 MG/2 ML VIAL IV PRN; -ONDANSETRON 4 MG/2 ML VIAL IVP ONE; -TRANEXAMIC ACID IN NACL,ISO-OS 1,000 MG in SALINE 1 100ML.BAG IVPB PRN
[2024-10-18] MEDS: MIDAZOLAM 2 MG/2 ML VIAL IV PRN (09:20)
[2024-10-18] MEDS: DEXAMETHASONE SOD PHOSPHATE 4 MG/ML 1 ML VIAL IV ONE (09:24)
[2024-10-18] MEDS: ONDANSETRON 4 MG/2 ML VIAL IVP ONE (09:24)
[2024-10-18] MEDS ORDERED: PHENYLEPHRINE-0.9% NACL SYG 1,000 MCG/10 ML SYRINGE ONE (09:29)
[2024-10-18] MEDS ORDERED: ROPIVACAINE 5 MG/ML 30 ML VIAL ONE (09:29)
[2024-10-18] MEDS ORDERED: SUCCINYLCHOLINE CHLORIDE 200 MG/10 ML VIAL IV ONE (09:29)
[2024-10-18] MEDS ORDERED: DEXAMETHASONE SOD PHOSPHATE 4 MG/ML 1 ML VIAL ONE (09:29)
[2024-10-18] MEDS ORDERED: GLYCOPYRROLATE 0.2 MG/ML 2 ML VIAL ONE (09:29)
[2024-10-18] MEDS ORDERED: fentaNYL (PF) 50 MCG/ML 2 ML AMP ONE (09:29)
[2024-10-18] MEDS ORDERED: PROPOFOL 10 MG/ML 20 ML VIAL IV ONE (09:29)
[2024-10-18] MEDS ORDERED: TRANEXAMIC 1,000 MG/100ML-NACL PREMIX BAG ONE (09:29)
[2024-10-18] MEDS ORDERED: LIDOCAINE 1% INJ 10MG/ML (20 ML MDV) ONE (09:29)
[2024-10-18] MEDS: IV FLUID CONTINUATION 1,000 ML IV ONE (09:30)
[2024-10-18] MEDS: ceFAZolin 2 GM in DEXTROSE 5% IN WATER 50 ML IVPB PRN (09:34)
[2024-10-18] MEDS: LACTATED RINGERS 1,000 ML IV ONE (10:55)
[2024-10-18] MEDS ORDERED: TEMAZEPAM 15 MG CAP PO PRN ×2 (11:05→22:00)
[2024-10-18] MEDS ORDERED: HYDROmorphone 0.5 MG/0.5 ML SYRINGE IVP PRN ×2 (11:05)
[2024-10-18] MEDS ORDERED: bisacodyL 10 MG SUPP RECTAL PRN (11:05)
[2024-10-18] MEDS ORDERED: hydrOXYzine pamoate 25 MG CAP PO PRN (11:05)
[2024-10-18] MEDS ORDERED: NALOXONE 0.4 MG/ML 1 ML VIAL IV PRN (11:05)
[2024-10-18] MEDS ORDERED: NA PHOS,M-B/NA PHOS,DI-BA 133 ML ENEMA RECTAL PRN (11:05)
[2024-10-18] MEDS ORDERED: ONDANSETRON 4 MG/2 ML VIAL IVP PRN (11:05)
[2024-10-18] MEDS ORDERED: diazePAM 5 MG TAB PO PRN ×2 (11:05)
[2024-10-18] MEDS ORDERED: MAGNESIUM HYDROXIDE 2,400 MG/30 ML CUP PO PRN (11:05)
--- NOTE | 2024-10-18 11:05 | P.OP ---
Date of Procedure: 10/18/24 Preoperative Diagnosis: Left displaced patella fracture Postoperative Diagnosis: Same Procedure(s) Performed: Open reduction and internal fixation left patella fracture Anesthesia: DAYANARA, regional Surgeon: Mark Lopes Seconds Inspector #1: Adams Lewis Estimated Blood Loss (ml): 100 IV fluids (ml): 800 Pathology: none sent Condition: stable Disposition: PACU Indications for Procedure: The patient is a very pleasant 78-year-old female who was vacationing in [place] when she fell and injured her left knee. She was seen in the emergency department was found to have a completely displaced patella fracture. I saw the patient earlier this week. Her x-rays showed a completely displaced patella fracture. My recommendation was to perform open reduction and internal fixation. We discussed the potential risks and complications of surgery at length including but certainly not limited to risks from anesthesia, superficial or deep infection, delayed wound healing, damage to local blood vessels or nerves, fracture nonunion, fracture malunion, posttraumatic arthritis, fixation failure, stiffness, instability, extensor mechanism disruption, DVT, PE, other medical complications, and possibly loss of life or limb. The patient voiced her understanding of these potential complications while also acknowledging other less common complications. She provided both her verbal and written consent to go forward with surgery. Description of Procedure: The patient was identified in preoperative holding and the correct left leg was marked with my initials. I reviewed the consent form with the patient and her . All of their questions were answered. The patient was then brought back to the operating room. She was positioned on the OR table where general anesthetic and preoperative antibiotics were given. A tourniquet was applied to the proximal aspect of the left leg was not used. A bump was placed under the left buttock. A ramp was placed under the left leg to facilitate imaging. A nonsterile drape was applied. The left leg was then prepped and draped in the standard sterile fashion. Prior to starting surgery a timeout was performed identifying the correct patient, operative extremity, and procedure. I began by making a straight anterior incision centered over the patella and the knee. Skin incision was made with a scalpel and dissection was carried down carefully through the subcutaneous tissue. Immediately upon entering the first fascial layer there was a completely displaced patella fracture with ruptured medial and lateral retinaculum. The joint and wound was thoroughly irrigated. The fracture was then reduced and held reduced with a large [id number] reduction clamp in the center axis of the patella. The reduction was verified with fluoroscopy. I then placed 2 K wires medial and lateral to the reduction clamp using fluoroscopy guidance. The K wires were measured, drilled, and partially-threaded cannulated screws were placed across the fracture generating excellent compression. Their position was verified with fluoroscopy. FiberWire was then passed through the wires to create a tension band construct. The clamp was carefully removed but before doing so clamps were placed medial and laterally to continue to apply compression across the fracture site. The fiber wire was then tied nicely compressing the fracture site. Due to the patient's age and relatively poor bone quality a locking patellar plate was placed anteriorly over the patella and its position was sized with fluoroscopy. A small plate was dispensed. The plate was then compressed with BB tacks and locking screws were placed to add additional fixation. Final fluoroscopic images were taken showing acceptable position of the hardware and anatomic reduction of the patella. The wound was then thoroughly irrigated. The retinacular disruption was closed with Ethibond sutures. The wound was then closed in layers. A sterile dressing was applied. I verified that all instrument, sponge, and sharp counts were correct. The patient was then transferred from the OR table to a gurney and brought to recovery having tolerated procedure well. Adams Lewis PA-C was required as a skilled radiology assistant due to the complexity of surgery for patient positioning, draping, retraction, completion of procedure, and closure of wound. Plan: The patient is going to be admitted overnight for pain control. 2 doses postoperative antibiotics. She can weight-bear as tolerated on her left leg in a knee immobilizer. No bending of the knee. Physical therapy. DVT prophylaxis with aspirin. Follow-up in the office in 2 weeks for 2 views of the left knee and wound check.
[2024-10-18] MEDS: fentaNYL (PF) 50 MCG/ML 2 ML AMP IVP PRN (11:41)
[2024-10-18] MEDS: droPERidol 2.5 MG/ML VIAL IVP ONE (12:24)
[2024-10-18] MEDS: LACTATED RINGERS 1,000 ML IV SCH (13:51)
[2024-10-18] MEDS: SODIUM CHLORIDE 0.9% 1,000 ML IV SCH (13:52)
--- NOTE | 2024-10-18 15:21 | P.CONS ---
History of Present Illness - History of Present Illness Patient 70-year-old female had a fall injuring his left knee found to have displaced patellar fracture. Patient underwent surgical intervention today open reduction internal fixation of patella fracture. Patient has some pain in the surgical site area. Patient does have history of hypertension blood pressure fairly stable at this time. REVIEW OF SYSTEMS: All other systems are negative except those mentioned in the HPI PHYSICAL EXAMINATION: GENERAL: The patient is alert and oriented x3, not in any acute distress. Well developed, well nourished. HEENT: Pupils are round and equally reacting to light. EOMI. No scleral icterus. No conjunctival pallor. Normocephalic, atraumatic. No pharyngeal erythema. No thyromegaly. CARDIOVASCULAR: S1 and S2 present. No murmurs, rubs, or gallops. PULMONARY: Chest is clear to auscultation, no wheezing or crackles. ABDOMEN: Soft, nontender, nondistended, normoactive bowel sounds. No palpable organomegaly. MUSCULOSKELETAL: Deferred to orthopedic surgery EXTREMITIES: No cyanosis, clubbing, or pedal edema. NEUROLOGICAL: Gross neurological examination did not reveal any focal deficits. SKIN: No rashes. Assessment and plan -Patellar fracture status post surgery pain management DVT prophylaxis primary service - Hypertension: Patient blood pressure is stable at this time but to prevent perioperative hypotension I will hold off on ANY inhibitor hydrochlorothiazide combination amlodipine will be resumed - Hyperlipidemia - Gastroesophageal reflux disease. For above-mentioned chronic medical problems patient will be resumed on appropriate home medications DVT prophylaxis: As per primary service Past Medical History Past Medical History: Eye Disorder, GERD/Reflux, Hyperlipidemia, Hypertension, Musculoskeletal Disorder, Osteoarthritis (OA) Additional Past Medical History / Comment(s): glaucoma. SPINAL STENOSIS. History of Any Multi-Drug Resistant Organisms: None Reported Past Surgical History: Joint Replacement, Orthopedic Surgery Additional Past Surgical History / Comment(s): RIGHT FOOT SURGERY WITH 7 SCREWS, RIGHT ANKLE SURGERY WITH 11 SCREWS AND 3 PLATES, LEFT FOOT BUNION SURGERY. BILATERAL CATARACTS. 06/13/18 LT EYE GONIOTOMY. BILATERAL HIP REPLACEMENT. Past Anesthesia/Blood Transfusion Reactions: No Reported Reaction Additional Past Anesthesia/Blood Transfusion Reaction / Comm: "Dad acted unruly coming out of anesthesia." Past Psychological History: No Psychological Hx Reported Smoking Status: Former smoker Past Alcohol Use History: None Reported Additional Past Alcohol Use History / Comment(s): QUIT SMOKING 2007. SMOKED 1 PPD OR LESS. SMOKED 41 YEARS. Past Drug Use History: None Reported - Past Family History Father Family Medical History: Cancer Additional Family Medical History / Comment(s): LUNG CANCER. Mother Family Medical History: Cancer Additional Family Medical History / Comment(s): OVARIAN CANCER. Medications and Allergies Home Medications Medication Instructions Recorded Confirmed Type Multivitamins, Thera [Multivitamin 1 tab PO DAILY 06/06/18 10/16/24 History (formulary)] Pravastatin Sodium [Pravachol] 80 mg PO DAILY 01/22/20 10/16/24 History Krill Oil 500 mg PO DAILY 01/12/22 10/16/24 History Turmeric Root Extract [Turmeric] 500 mg PO DAILY 01/12/22 10/16/24 History Alendronate Sodium 70 mg PO WEEKLY 07/03/24 10/16/24 History Beet Root Gummy 1 dose PO DAILY 10/16/24 10/16/24 History Bimatoprost [Lumigan 0.01% Ophth 1 drop BOTH EYES DIRECTED 10/16/24 10/16/24 History Soln] Calcium Phos/D3/Magnesium/Zinc 1 each PO DAILY 10/16/24 10/16/24 History [Kulwmud-Dkv-Nyhb-Vitamin D3] Valsartan/Hydrochlorothiazide 1 each PO QAM 10/16/24 10/16/24 History [Valsartan-Hctz 160-12.5 mg Tab] amLODIPine [Norvasc] 5 mg PO QAM 10/16/24 10/16/24 History cycloSPORINE 0.05% OPHTH SOLN 1 applicator BOTH EYES DIRECTED 10/16/24 10/16/24 History [Restasis] oxyBUTYnin chloride [Ditropan] 5 mg PO QAM 10/16/24 10/16/24 History Gabapentin [Neurontin] 300 mg PO TID 10/18/24 10/18/24 History Allergies Allergy/AdvReac Type Severity Reaction Status Date / Time venom-honey bee Allergy Severe Anaphylaxis Verified 10/18/24 08:32 [bee venom (honey bee)] neomycin Allergy Mild Rash/Hives Verified 10/18/24 08:32 [From Neosporin ([id number])] polymyxin B Allergy Mild Rash/Hives Verified 10/18/24 08:32 [From Neosporin (owz-sna-zrizn)] famotidine [From Pepcid] Allergy Itching Verified 10/18/24 08:32 Physical Exam Vitals: Vital Signs Temp Pulse Resp BP BP Pulse Ox 10/18/24 14:05 98.1 F 83 16 141/82 92 L 10/18/24 13:14 80 14 127/74 93 L 10/18/24 13:00 77 14 129/73 93 L 10/18/24 12:45 75 14 128/70 96 10/18/24 12:30 75 14 131/71 96 10/18/24 12:15 77 14 117/67 96 10/18/24 12:00 79 14 119/67 95 10/18/24 11:45 85 14 119/67 92 L 10/18/24 11:30 82 14 121/68 92 L 10/18/24 11:24 96.8 F L 94 14 125/72 92 L 10/18/24 09:25 69 16 109/65 95 10/18/24 08:54 98.0 F 63 16 114/68 93 L Intake and Output 10/18/24 10/18/24 10/18/24 06:59 14:59 22:59 Intake Total 1450 Output Total 100 Balance 1350 Intake: IV 1450 Output: Estimated Blood Loss 100 Other: Weight 81.8 kg Results CBC & Chem 7: 10/18/24 09:09
--- NOTE | 2024-10-18 15:52 | XR ---
EXAMINATION TYPE: XR knee limited LT, FL guidance operating room DATE OF EXAM: 10/18/2024 11:09 AM COMPARISON: None CLINICAL INDICATION: Female, 78 years old with history of FRACTURE LEFT PATELLA; PHH, pain FLUOROSCOPY ORIF patella fx with Braaksma 1 min 11 sec fluoro time .9510 DAP 6 images saved LC 6 images are submitted. Initial image demonstrates sharp forceps approximating the fracture fragments of the patella. Subsequ ent drilling from the lower pole of the patella with placement of 2 cortical screws followed by dorsa l plate and screw fixation. Overall gross anatomic alignment on the final images. [facility], , 10/18/2024 3:50 PM
[2024-10-18] MEDS: GABAPENTIN 300 MG CAP PO SCH (16:26)
[2024-10-18] MEDS: HYDROcodone/APAP 5-325MG 1 EACH TAB PO PRN (16:26)
[2024-10-18] MEDS: PRAVASTATIN SODIUM 80 MG TAB PO SCH (16:27)
[2024-10-18] MEDS: ceFAZolin 2 GM in DEXTROSE 5% IN WATER 50 ML IVPB SCH (18:33)
[2024-10-18] MEDS: LATANOPROST 0.005% OPHTH DROPS 2.5 ML BTL BOTH EYES SCH (20:41)
[2024-10-18] MEDS: ASPIRIN 81 MG PO SCH (20:41)
[2024-10-18] MEDS: cycloSPORINE 0.05% OPHTH 0.4 ML DROPERETTE BOTH EYES SCH (20:41)
[2024-10-18] MEDS: SENNOSIDES-DOCUSATE SODIUM 1 EACH TAB PO SCH (20:42)
[2024-10-19 07:23] VITALS: BP 148/80; PULSE 80; RESP 16; TEMP 98.1
--- NOTE | 2024-10-19 07:31 | P.DS ---
Providers Date of admission: Monday10/18/24 Attending physician: Mark Lopes Consults: 10/18/24 11:05 Consult Physician Routine Consulting Provider: Grace Alicia Consult Reason/Comments: post op medical managemetn Do you want consulting provider notified?: Yes Primary care physician: Roz Velazquez [facility] Course: The patient is a very pleasant 78-year-old female who was admitted yesterday with a patella fracture. She underwent surgical fixation. Following uncomplicated surgery she was transferred to the orthopedic floor. She received 2 doses of postoperative antibiotics. She was transition from IV to oral pain medications. She was seen on postoperative day #1 and was doing well. Her dressing was intact. There was moderate swelling and ecchymosis from her injury. She was able to actively plantarflex and dorsiflex her ankle and her toes. She worked with physical therapy. A hinged knee brace was ordered. The patient was ultimately cleared for discharge home. Patient Condition at Discharge: Good Plan - Discharge Summary Discharge Rx Participant: Yes New Discharge Prescriptions: New Aspirin 81 mg PO BID #60 tab Docusate [Colace] 100 mg PO BID #60 capsule HYDROcodone/APAP 5-325MG [[place] 5-325] 1 - 2 tab PO Q6HR PRN #18 tab PRN Reason: Pain Ondansetron [Zofran] 4 mg PO Q8HR PRN #12 tab PRN Reason: Nausea No Action Multivitamins, Thera [Multivitamin (formulary)] 1 tab PO DAILY Pravastatin Sodium [Pravachol] 80 mg PO DAILY Turmeric Root Extract [Turmeric] 500 mg PO DAILY Beet Root Gummy 1 dose PO DAILY amLODIPine [Norvasc] 5 mg PO QAM oxyBUTYnin chloride [Ditropan] 5 mg PO QAM Calcium Phos/D3/Magnesium/Zinc [Dlflwrn-Rda-Axst-Vitamin D3] 1 each PO DAILY Gabapentin [Neurontin] 300 mg PO TID Krill Oil 500 mg PO DAILY Alendronate Sodium 70 mg PO WEEKLY Valsartan/Hydrochlorothiazide [Valsartan-Hctz 160-12.5 mg Tab] 1 each PO QAM Bimatoprost [Lumigan 0.01% Ophth Soln] 1 drop BOTH EYES DIRECTED cycloSPORINE 0.05% OPHTH SOLN [Restasis] 1 applicator BOTH EYES DIRECTED Discharge Medication List Multivitamins, Thera [Multivitamin (formulary)] 1 tab PO DAILY 06/06/18 [History] Pravastatin Sodium [Pravachol] 80 mg PO DAILY 01/22/20 [History] Krill Oil 500 mg PO DAILY 01/12/22 [History] Turmeric Root Extract [Turmeric] 500 mg PO DAILY 01/12/22 [History] Alendronate Sodium 70 mg PO WEEKLY 07/03/24 [History] Beet Root Gummy 1 dose PO DAILY 10/16/24 [History] Bimatoprost [Lumigan 0.01% Ophth Soln] 1 drop BOTH EYES DIRECTED 10/16/24 [History] Calcium Phos/D3/Magnesium/Zinc [Lvqdlmz-Zkn-Ioov-Vitamin D3] 1 each PO DAILY 10/16/24 [History] Valsartan/Hydrochlorothiazide [Valsartan-Hctz 160-12.5 mg Tab] 1 each PO QAM 10/16/24 [History] amLODIPine [Norvasc] 5 mg PO QAM 10/16/24 [History] cycloSPORINE 0.05% OPHTH SOLN [Restasis] 1 applicator BOTH EYES DIRECTED 10/16/24 [History] oxyBUTYnin chloride [Ditropan] 5 mg PO QAM 10/16/24 [History] Gabapentin [Neurontin] 300 mg PO TID 10/18/24 [History] Aspirin 81 mg PO BID #60 tab 10/19/24 [Rx] Docusate [Colace] 100 mg PO BID #60 capsule 10/19/24 [Rx] HYDROcodone/APAP 5-325MG [[place] 5-325] 1 - 2 tab PO Q6HR PRN #18 tab 10/19/24 [Rx] Ondansetron [Zofran] 4 mg PO Q8HR PRN #12 tab 10/19/24 [Rx] Follow up Appointment(s)/Referral(s): Mark Lopes MD [Medical Doctor] - 2 Weeks Activity/Diet/Wound Care/Special Instructions: 1. Weight-bear as tolerated on your operative extremity unless instructed otherwise. Use a walker or other assistive device to ambulate. Keep knee straight and DO NOT BEND. Leave hinged knee brace on at all times except for hygiene. 2. Leave surgical dressing in place. If your dressing becomes saturated with blood, there is drainage, or the dressing becomes loose please contact the office. 3. It is okay to shower with your surgical dressing, but do not submerge in water (no hot tubs, bath's, swimming etc.) 4. Make sure to take her blood clot prevention medication as prescribed (aspirin, Eliquis, Xarelto, and Plavix are commonly prescribed medications for blood clot prevention) 5. While taking [place] or Percocet for pain make sure you're taking a stool softener (Colace) and drink lots of water. 6. Keep all follow-up appointments as scheduled. You will usually be seen in 1-2 weeks following surgery. 7. Please contact the office with any questions or concerns [phone] Discharge Disposition: HOME WITH HOME HEALTH SERVICES
[2024-10-19] MEDS: amLODIPine 5 MG TAB PO SCH (07:48)
[2024-10-19] MEDS: HYDROmorphone 0.5 MG/0.5 ML SYRINGE IVP PRN (07:51)
[2024-10-19] MEDS: HYDROcodone/APAP 10-325MG 1 EACH TAB PO PRN (09:34)
[2024-10-19 10:20] LABS: Basophils # (A) 0.01 X 10*3/uL (0.00-0.10); Basophils % (A) 0.1 %; Eosinophils # (A) 0 X 10*3/uL (0.04-0.35); Eosinophils % (A) 0 %; HCT 36.3 % (37.2-46.3); HGB 11.5 g/dL (12.0-15.0); Lymphocytes # (A) 0.61 X 10*3/uL (0.90-5.00); Lymphocytes % (A) 4.6 %; MCH 29.6 pg (27.0-32.0); MCHC 31.7 g/dL (32.0-37.0); MCV 93.3 FL (80.0-97.0); Mean Platelet Volume 9.1 FL (9.5-12.2); Monocytes # (A) 0.66 X 10*3/uL (0.20-1.00); NRBC Per 100 WBC 0 X 10*3/uL (0.00-0.01); Neutrophils # (A) 11.94 X 10*3/uL (1.80-7.70); Neutrophils % (A) 89.7 %; Platelet Count 272 X 10*3/uL (140-440); RBC 3.89 X 10*6/uL (4.10-5.20); RDW 14.6 % (11.5-14.5)
--- NOTE | 2024-10-19 12:50 | P.PN ---
Subjective Patient 70-year-old female had a fall injuring his left knee found to have displaced patellar fracture. Patient underwent surgical intervention today open reduction internal fixation of patella fracture. Patient has some pain in the surgical site area. Patient does have history of hypertension blood pressure fairly stable at this time. 10/19/2024 No significant overnight events patient is clinically doing well has leukocytosis secondary to surgery no evidence of infection at this time patient is medically stable to be discharged REVIEW OF SYSTEMS: All other systems are negative except those mentioned in the HPI PHYSICAL EXAMINATION: GENERAL: The patient is alert and oriented x3, not in any acute distress. Well developed, well nourished. HEENT: Pupils are round and equally reacting to light. EOMI. No scleral icterus. No conjunctival pallor. Normocephalic, atraumatic. No pharyngeal erythema. No thyromegaly. CARDIOVASCULAR: S1 and S2 present. No murmurs, rubs, or gallops. PULMONARY: Chest is clear to auscultation, no wheezing or crackles. ABDOMEN: Soft, nontender, nondistended, normoactive bowel sounds. No palpable organomegaly. MUSCULOSKELETAL: Deferred to orthopedic surgery EXTREMITIES: No cyanosis, clubbing, or pedal edema. NEUROLOGICAL: Gross neurological examination did not reveal any focal deficits. SKIN: No rashes. Assessment and plan -Patellar fracture status post surgery pain management DVT prophylaxis primary service - Hypertension: Patient can resume all her home regimen can be discharged from medical perspective - Hyperlipidemia - Gastroesophageal reflux disease. DVT prophylaxis: As per primary service Objective - Vital Signs Vital signs: Vital Signs Temp 98.1 F 10/19/24 07:22 Pulse 80 10/19/24 07:22 Resp 16 10/19/24 07:22 BP 148/80 10/19/24 07:22 Pulse Ox 93 L 10/19/24 07:22 FiO2 Intake & Output 10/18/24 10/19/24 10/19/24 18:59 06:59 18:59 Intake Total 1450 Output Total 100 Balance 1350 Weight 81.8 kg Intake: IV 1450 Output: Estimated Blood Loss 100 Other: Voiding Method Toilet Toilet # Voids 2 2 - Labs CBC & Chem 7: 10/19/24 03:54 10/18/24 09:09 Labs: Abnormal Lab Results - Last 24 Hours (Table) 05/03/25 Range/Units 03:54 WBC 13.30 H (4.50-10.00) X 10*3/uL RBC 3.89 L (4.10-5.20) X 10*6/uL Hgb 11.5 L (12.0-15.0) g/dL Hct 36.3 L (37.2-46.3) % MCHC 31.7 L (32.0-37.0) g/dL RDW 14.6 H (11.5-14.5) % MPV 9.1 L (9.5-12.2) FL Immature Gran # 0.08 H (0.00-0.04) X 10*3/uL Neutrophils # 11.94 H (1.80-7.70) X 10*3/uL Lymphocytes # 0.61 L (0.90-5.00) X 10*3/uL Eosinophils # 0 L (0.04-0.35) X 10*3/uL
--- NOTE | 2024-10-20 18:56 | P.ANPRN ---
Procedure Note - Anesthesia - Nerve Block Performed Left Adductor Canal Single Time Out Performed: Yes Date of Procedure: 10/18/24 Procedure Start Time: : Procedure Stop Time: Location of Patient: PreOp Indication: Acute Post-Operative Pain, Requested by Surgeon Sedation Type: Sedate with meaningful contact maintained Preparation: Sterile Prep Position: Supine Needle Types: Pajunk Needle Gauge: 21 Ultrasound used to visualize needle placement: Yes Ultrasound used to observe medication spread: Yes Blood Aspirated: No Pain Paresthesia on Injection Noted: No Resistance on Injection: Normal Image Stored and Saved: Yes Events: Uneventful and Well Tolerated (Ropivacaine 0.5% 20 cc plus dexamethasone 4 mg)
== END 2024-10-19 13:20 | disposition home health service (06) ==
LOC: OR 08:14 → 4SSUR 11:24 → OR 10-19 13:20
PROVIDERS: ATTEND Orthopaedic Surgery
DX: S82.032A Displaced transverse fracture of left patella, initial encounter for closed fracture (principal); M19.90 Unspecified osteoarthritis, unspecified site; E78.5 Hyperlipidemia, unspecified; I10 Essential (primary) hypertension; K21.9 Gastro-esophageal reflux disease without esophagitis; Z96.643 Presence of artificial hip joint, bilateral; Z80.1 Family history of malignant neoplasm of trachea, bronchus and lung; Z91.030 Bee allergy status; Z79.621 Long term (current) use of calcineurin inhibitor; Z79.899 Other long term (current) drug therapy; W19.XXXA Unspecified fall, initial encounter
CPT/HCPCS: 97161; 84132; 85025; 73560; 27524; 64447; J2250; J1100; J0690 ×2; J2405; J3010; J1171; J1790